=== PATIENT | female | born 1945 | race Caucasian/White ===

== ENCOUNTER 2016-10-04 02:24 | Observation (INO) | payer BC ==
[~2016-10-04] VITALS: Ht 162.6 cm; Wt 76.2 kg
[~2016-10-04 02:24] MED LIST: AMIT10TA6 PO; ASPI325T45 PO; ATEN-173 PO; CALC-354 PO; HYDR25TA4 PO
[2016-10-04] MEDS ORDERED: SODIUM CHLORIDE 0.9% 500ML 500 ML IV STA (02:52)
[2016-10-04] MEDS ORDERED: ACETAMINOPHEN 500 MG TAB PO STA (03:24)
[2016-10-04] MEDS ORDERED: MULT-506 PO (03:24)
[2016-10-04] MEDS ORDERED: KETOROLAC TROMETHAMINE 30 MG/ML VIAL IV STA (03:24)
[2016-10-04] MEDS ORDERED: SODIUM CHLORIDE 0.9% 1000ML 1,000 ML IV STA (03:44)
[2016-10-04] MEDS ORDERED: OSELTAMIVIR PHOSPHATE 75 MG CAP PO STA (03:49)
[2016-10-04 03:56] LABS: BASO % 0.3 %; BASO ABS # 0.02 K/uL (0-0.2); COMPLETE YES; EOS % 0.1 %; HEMATOCRIT 36.7 % (37-47); IG% 0.3 %; LYMPH % 8.2 %; MEAN CELL VOLUME 84.6 fL (80-100); MEAN CORPUSCULAR HEMOGLOBIN 29.7 pg (25-34); MEAN CORPUSCULAR HGB CONC 35.1 g/dl (32-36); MEAN PLATELET VOLUME 9.3 fL (7.4-10.4); MONO % 6.6 %; NEUT % 84.5 %; PLATELET COUNT 224 K/uL (130-400); RED BLOOD COUNT 4.34 M/uL (4.2-5.4); WHITE BLOOD COUNT 7.28 K/uL (4.8-10.8)
[2016-10-04 04:03] LABS: URINE APPEARANCE CLOUDY (CLEAR); URINE COLOR DK YELLOW; URINE EPITHELIAL CELL AUTO >30 /lpf (0-5); URINE NITRITE NEG (NEG); URINE SPECIFIC GRAVITY 1.037 (1.000-1.030); UROBILINOGEN NEG (NEG); ZZUR CULT IF INDIC CLEAN CATCH YES
[2016-10-04 04:14] LABS: ALT/SGPT 38 U/L (12-78); AST/SGOT 42 U/L (15-37); BLOOD UREA NITROGEN 11 mg/dl (7-18); BUN/CREATININE RATIO 11.1 (10-20); CALCIUM 8.5 mg/dl (8.5-10.1); CARBON DIOXIDE 29 mmol/L (21-32); CHLORIDE 99 mmol/L (98-107); GLUCOSE 120 mg/dl (70-99); POTASSIUM 2.8 mmol/L (3.5-5.1); SODIUM 138 mmol/L (136-145)
[2016-10-04 04:15] LABS: MANUAL MICROSCOPIC REQUIRED? NO; REVIEW REQ? YES
[2016-10-04 04:17] LABS: URINE BILIRUBIN NEG (NEG)
[2016-10-04 04:19] LABS: ALKALINE PHOSPHATASE 81 U/L (45-117)
[2016-10-04 04:30] LABS: URINE MUCUS PRESENT (NONE PRSENT)
[2016-10-04] MEDS ORDERED: ONDANSETRON INJ 2 MG/ML 2 ML VIAL IV STA (04:38)
[2016-10-04] MEDS ORDERED: ZOLPIDEM TARTRATE 5 MG TAB PO PRN (04:45)
[2016-10-04] MEDS ORDERED: MAGNESIUM HYDROXIDE SUSP 30 ML UDC PO PRN (04:45)
[2016-10-04] MEDS ORDERED: ACETAMINOPHEN 325 MG TAB PO PRN (04:45)
[2016-10-04] MEDS ORDERED: ALUMINUM/MAGNESIUM/SIMETH (MAALOX MAX) 30 ML UDC PO PRN (04:45)
[2016-10-04] MEDS ORDERED: CALCIUM CARBONATE CHOLECALCIFE PO SCH (04:45)
[2016-10-04] MEDS ORDERED: POLYETHYLENE (MIRALAX) 17 GM PACK PO PRN (04:45)
[2016-10-04] MEDS ORDERED: AMITRIPTYLINE HCL 10 MG TAB PO PRN (04:45)
[2016-10-04] MEDS ORDERED: ONDANSETRON INJ 2 MG/ML 2 ML VIAL IV PRN (04:45)
[2016-10-04] MEDS ORDERED: MAGNESIUM SULFATE 1GM / D5W 1 GM IV STA (04:48)
--- NOTE | 2016-10-04 04:57 | History and Physical ---
History & Physical Date & Time of Service: Oct 04, 2016 at 04:45 Chief Complaint: Flu,Headaches,Vomiting,Fell Out Of Bed Primary Care Physician: Wong Navarrete D.O. History of Present Illness Source: patient 71 y/o F w/Hx HTN, Diverticulitis presents following a syncopal episode. Pt has develped weakness and a fever. Rapid infulenza A is (+) and initial labs reveal mild lactic acid elevation and hypokalemia. The pt confirms that she did not have a flu shot this year. Past Medical/Surgical History Medical Problems: (1) Acute diverticulitis Status: Resolved (2) Hypertension Nos Status: Chronic (3) INTESTINAL OBSTRUCT NOS Status: Resolved (4) NONRUPT CEREBRAL ANEURYM Status: Chronic Surgical Problems: (1) Hx of appendectomy Status: Resolved (2) Hx of diagnostic laparoscopy, CHIKA Status: Resolved (3) Hx of hysterectomy Status: Resolved Family History Hypertension Social History Smoking Status: Never Smoker Drug Use: none Marital Status: Housing status: lives alone Occupational Status: employed Immunizations History of Influenza Vaccine: No Influenza Vaccine Date: Jul 11, 2008 History of Tetanus Vaccine?: Yes Tetanus Immunization Date: Jan 04, 2009 History of Pneumococcal: Yes Pneumococcal Date: Oct 10, 2010 History of Hepatitis B Vaccine: Yes Multi-Drug Resistant Organisms History of MDRO: No Allergies Coded Allergies: No Known Allergies (Verified , 05/20/16) Home Medications Scheduled Aspirin (Aspirin), 325 MG PO HS Atenolol (Tenormin), 12.5 MG PO QAM Calcium Carbonate-Cholecalcife (Caltrate 600+D), 3 TABS PO AMPM/3XW Hydrochlorothiazide (Hctz), 25 MG PO QAM Multivitamin (Multivitamin), 1 TAB PO 2XWK Scheduled PRN Amitriptyline Hcl (Elavil), 10 MG PO HS PRN for Sleep Review of Systems Constitutional: + chills, + fever, + sweats Eyes: No eye pain, No worsening of vision ENT: No hearing loss, No nasal symptoms, No unusual epistaxis Cardiovascular: No PND, No chest pain, No orthopnea Abdomen: No nausea, No pain, No vomiting Musculoskeletal: No joint pain, No muscle pain Genitourinary - Female: No dysuria, No urinary frequency, No urinary urgency Neurologic: + problem reported (Syncope ), + weakness Psychiatric: No depression symptoms Endocrine: + fatigue Hematologic / Lymphatic: No abnormal bleeding/bruising Integumentary: No rash Allergic / Immunologic: No environmental allergies Physical Exam Vital Signs Date Time Temp Pulse Resp B/P Pulse Ox O2 Delivery O2 Flow Rate FiO2 10/04/16 03:54 85 18 143/68 91 Room Air 10/04/16 02:30 37.7 89 18 114/63 91 Room Air General Appearance: WD/WN, no apparent distress Head: normocephalic, atraumatic Eyes: normal inspection, EOMI ENT: normal ENT inspection, pharynx normal Neck: supple, no JVD Respiratory/Chest: chest non-tender, lungs clear, normal breath sounds Cardiovascular: regular rate, rhythm, no edema, no gallop, no JVD, no murmur, normal peripheral pulses, + JVD Abdomen/GI: normal bowel sounds, non tender, soft Back: normal inspection, no CVA tenderness Extremities/Musculoskelatal: normal inspection, no calf tenderness, normal capillary refill, no pedal edema, normal range of motion 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, no motor/sensory deficits, alert, oriented x 3 Skin: normal color, warm/dry, no rash Diagnostics Laboratory Results Results Past 24 Hours Test 10/04/16 03:05 10/04/16 03:18 10/04/16 03:43 10/04/16 03:50 Range/Units Influenza Type A Antigen POS for Influ A NEG Influenza Type B Antigen Neg for Influ B NEG White Blood Count 7.28 4.8-10.8 K/uL Red Blood Count 4.34 4.2-5.4 M/uL Hemoglobin 12.9 12.0-16.0 g/dL Hematocrit 36.7 37-47 % Mean Corpuscular Volume 84.6 80-100 fL Mean Corpuscular Hemoglobin 29.7 25-34 pg Mean Corpuscular Hemoglobin Concent 35.1 32-36 g/dl Platelet Count 224 130-400 K/uL Mean Platelet Volume 9.3 7.4-10.4 fL Neutrophils (%) (Auto) 84.5 % Lymphocytes (%) (Auto) 8.2 % Monocytes (%) (Auto) 6.6 % Eosinophils (%) (Auto) 0.1 % Basophils (%) (Auto) 0.3 % Neutrophils # (Auto) 6.15 1.4-6.5 K/uL Lymphocytes # (Auto) 0.60 1.2-3.4 K/uL Monocytes # (Auto) 0.48 0.11-0.59 K/uL Eosinophils # (Auto) 0.01 0-0.5 K/uL Basophils # (Auto) 0.02 0-0.2 K/uL RDW Standard Deviation 39.7 36.4-46.3 fL RDW Coefficient of Variation 13.0 11.5-14.5 % Immature Granulocyte % (Auto) 0.3 % Immature Granulocyte # (Auto) 0.02 0.00-0.02 K/uL Sodium Level 138 136-145 mmol/L Potassium Level 2.8 3.5-5.1 mmol/L Chloride Level 99 98-107 mmol/L Carbon Dioxide Level 29 21-32 mmol/L Anion Gap 10.0 3-11 mmol/L Blood Urea Nitrogen 11 7-18 mg/dl Creatinine 1.00 0.60-1.20 mg/dl Est Creatinine Clear Calc Drug Dose 51.1 ml/min Estimated GFR () 65.6 Estimated GFR (Non- 56.6 BUN/Creatinine Ratio 11.1 10-20 Random Glucose 120 70-99 mg/dl Calcium Level 8.5 8.5-10.1 mg/dl Total Bilirubin 0.5 0.2-1 mg/dl Direct Bilirubin 0.1 0-0.2 mg/dl Aspartate Amino Transf (AST/SGOT) 42 15-37 U/L Alanine Aminotransferase (ALT/SGPT) 38 12-78 U/L Alkaline Phosphatase 81 45-117 U/L Troponin I < 0.015 0-0.045 ng/ml Total Protein 7.2 6.4-8.2 gm/dl Albumin 3.5 3.4-5.0 gm/dl Bedside Lactic Acid Venous 2.14 0.90-1.70 mmol/L Urine Color DK YELLOW Urine Appearance CLOUDY CLEAR Urine pH 6.0 4.5-7.5 Urine Specific [place] 1.037 1.000-1.030 Urine Protein 2+ NEG Urine Glucose (UA) NEG NEG Urine Ketones TRACE NEG Urine Occult Blood 2+ NEG Urine Nitrite NEG NEG Urine Bilirubin NEG NEG Urine Urobilinogen NEG NEG Urine Leukocyte Esterase TRACE NEG Urine WBC (Auto) 5-10 0-5 /hpf Urine RBC (Auto) >30 0-4 /hpf Urine Hyaline Casts (Auto) 10-30 0-5 /lpf Urine Epithelial Cells (Auto) >30 0-5 /lpf Urine Bacteria (Auto) 1+ NEG Urine Renal Epithelial Cells 0-5 /lpf Urine Pathogenic Casts 0 /lpf Urine Mucus PRESENT NONE PRSENT Microbiology Results 10/04/16 Blood Culture, Received Pending 10/04/16 Blood Culture, Received Pending 10/04/16 Urine Culture, Received Pending CXR normal Normal EKG Impression Assessment and Plan 1) Syncope - likely due to orthostasis resulting from volume depletion due to Influenza. The pt will be monitored on telemetry and aggressively hydrated overnight. We would hold off on a syncopal workup at present as she does not have considerable cardiovascular risk factors or a history of recurrent episodes. 2) Influenza A - Tamiflu provided - mild lactic elevation noted - will repeat following hydration. 3) Hypokalemia - repleted and mag provided - repeat BMP with next labs 4) HTN - Meds held pending AM reevaluation SCDs only due to Hx of Aneurysm - full code Total time for this admit including review of labs, meds, EKG, CXR, CT - previous records - discussion with ER attending and pt - 30 min Level of Care Telemetry Resuscitation Status FULL RESUSCITATION VTE Prophylaxis VTE Risk Assessment Done? Y/N: Yes Risk Level: Moderate Given or contraindicated: SCD's
--- NOTE | 2016-10-04 05:25 | EMERGENCY ROOM VISIT NOTE ---
History Report prepared by Alanis: Stella Dow Under the Supervision of: Dr. Adebayo Camarillo M.D. First contact with patient: 02:32 Chief Complaint: FLU LIKE SX Stated Complaint: FLU,HEADACHES,VOMITING,FELL OUT OF BED History of Present Illness The patient is a 71 year old female who presents to the Emergency Room with complaints of worsening flu like symptoms with onset two days ago. For two days , the patient has had nausea, vomiting, and a fever. She has also had a headache. The headache was located in the back of her head. This evening, she vomited twice in the past 6 hours. The patient lives with her son, who states he heard the patient say that she needed to go to the bathroom this early this morning, around 2.5 hours ago. The patient then fell out of her bed on her way to the bathroom. She fell on her right flank and passed out. The patient denies hitting her head. She was short of breath after the fall but she no longer has shortness of breath. Additionally, the patient did not get a flu vaccine this year. Source of History: patient Onset: 2 days ago Position: other (global ) Quality: other (flu like symptoms) Timing: worsening Associated Symptoms: + LOC, + fevers, + nausea, + vomiting Note: She fell on her right flank, denies hitting her head. She was then short of breath but she no longer has shortness of breath. Review of Systems See HPI for pertinent positives & negatives. A total of 10 systems reviewed and were otherwise negative. Past Medical & Surgical Medical Problems: (1) Acute diverticulitis (2) Hypertension Nos (3) Influenza A (4) INTESTINAL OBSTRUCT NOS (5) NONRUPT CEREBRAL ANEURYM (6) Syncope and collapse Surgical Problems: (1) Hx of appendectomy (2) Hx of diagnostic laparoscopy, CHIKA (3) Hx of hysterectomy Family History Hypertension Social History Smoking Status: Never Smoker Drug Use: none Marital Status: Housing Status: lives alone Occupation Status: employed Current/Historical Medications Scheduled Aspirin (Aspirin), 325 MG PO HS Atenolol (Tenormin), 12.5 MG PO QAM Calcium Carbonate-Cholecalcife (Caltrate 600+D), 3 TABS PO AMPM/3XW Hydrochlorothiazide (Hctz), 25 MG PO QAM Multivitamin (Multivitamin), 1 TAB PO 2XWK Scheduled PRN Amitriptyline Hcl (Elavil), 10 MG PO HS PRN for Sleep Allergies Coded Allergies: No Known Allergies (Verified , 05/20/16) Physical Exam Vital Signs Date Time Temp Pulse Resp B/P Pulse Ox O2 Delivery O2 Flow Rate FiO2 10/04/16 05:05 86 20 118/59 98 Room Air 10/04/16 03:54 85 18 143/68 91 Room Air 10/04/16 02:30 37.7 89 18 114/63 91 Room Air Physical Exam GENERAL: Patient is uncomfortable appearing and in mild distress. HEENT: No acute trauma, normocephalic atraumatic, mucous membranes moist, no nasal congestion, no scleral icterus. NECK: No stridor, no adenopathy, no meningismus, trachea is midline. LUNGS: No dyspnea. Clear to auscultation and equal bilaterally. No wheeze, no rhonchi. HEART: Regular rate and rhythm. No murmurs, rubs, gallops appreciated. ABDOMEN: Soft, bowel sounds positive, no masses appreciated, no peritonitis. She is tender to palpation over the right lateral middle ribs and has vague tenderness over the suprapubic region. BACK: No midline tenderness, no CVA tenderness EXTREMITIES: Normal motion all extremities, no cyanosis, no edema. NEUROLOGIC: Alert and oriented, no acute motor or sensory deficits, no focal weakness, cranial nerves grossly intact. SKIN: No rash, no jaundice, no diaphoresis. Medical Decision & Procedures ER Provider Diagnostic Interpretation: X ray results and stated below per my interpretation. Other radiology results and stated below per my review and radiologist interpretation: CT Head: CT head without contrast material 10/11/2010. No ICH, mass effect or edema. No skull fracture. Coil pack in the region of the right carotid terminus likely relates to interval aneurysm coiling. Radiologist: Bryant Hope MD. Chest: 1 view: No infiltrate, no effusion, normal cardiac border. There is evidence of right lateral 5th or 6th rib fracture. Laboratory Results 10/04/16 03:18 Red Blood Count 4.34, Mean Corpuscular Volume 84.6, Mean Corpuscular Hemoglobin 29.7, Mean Corpuscular Hemoglobin Concent 35.1, Mean Platelet Volume 9.3, Neutrophils (%) (Auto) 84.5, Lymphocytes (%) (Auto) 8.2, Monocytes (%) (Auto) 6.6, Eosinophils (%) (Auto) 0.1, Basophils (%) (Auto) 0.3, Neutrophils # (Auto) 6.15, Lymphocytes # (Auto) 0.60, Monocytes # (Auto) 0.48, Eosinophils # (Auto) 0.01, Basophils # (Auto) 0.02 10/04/16 03:18 Test 10/04/16 03:05 10/04/16 03:18 10/04/16 03:43 10/04/16 03:50 Influenza Type A Antigen POS for Influ A (NEG) Influenza Type B Antigen Neg for Influ B (NEG) White Blood Count 7.28 K/uL (4.8-10.8) Red Blood Count 4.34 M/uL (4.2-5.4) Hemoglobin 12.9 g/dL (12.0-16.0) Hematocrit 36.7 % (37-47) Mean Corpuscular Volume 84.6 fL (80-100) Mean Corpuscular Hemoglobin 29.7 pg (25-34) Mean Corpuscular Hemoglobin Concent 35.1 g/dl (32-36) Platelet Count 224 K/uL (130-400) Mean Platelet Volume 9.3 fL (7.4-10.4) Neutrophils (%) (Auto) 84.5 % Lymphocytes (%) (Auto) 8.2 % Monocytes (%) (Auto) 6.6 % Eosinophils (%) (Auto) 0.1 % Basophils (%) (Auto) 0.3 % Neutrophils # (Auto) 6.15 K/uL (1.4-6.5) Lymphocytes # (Auto) 0.60 K/uL (1.2-3.4) Monocytes # (Auto) 0.48 K/uL (0.11-0.59) Eosinophils # (Auto) 0.01 K/uL (0-0.5) Basophils # (Auto) 0.02 K/uL (0-0.2) RDW Standard Deviation 39.7 fL (36.4-46.3) RDW Coefficient of Variation 13.0 % (11.5-14.5) Immature Granulocyte % (Auto) 0.3 % Immature Granulocyte # (Auto) 0.02 K/uL (0.00-0.02) Anion Gap 10.0 mmol/L (3-11) Est Creatinine Clear Calc Drug Dose 51.1 ml/min Estimated GFR () 65.6 Estimated GFR (Non- 56.6 BUN/Creatinine Ratio 11.1 (10-20) Calcium Level 8.5 mg/dl (8.5-10.1) Total Bilirubin 0.5 mg/dl (0.2-1) Direct Bilirubin 0.1 mg/dl (0-0.2) Aspartate Amino Transf (AST/SGOT) 42 U/L (15-37) Alanine Aminotransferase (ALT/SGPT) 38 U/L (12-78) Alkaline Phosphatase 81 U/L (45-117) Troponin I < 0.015 ng/ml (0-0.045) Total Protein 7.2 gm/dl (6.4-8.2) Albumin 3.5 gm/dl (3.4-5.0) Bedside Lactic Acid Venous 2.14 mmol/L (0.90-1.70) Urine Color DK YELLOW Urine Appearance CLOUDY (CLEAR) Urine pH 6.0 (4.5-7.5) Urine Specific [place] 1.037 (1.000-1.030) Urine Protein 2+ (NEG) Urine Glucose (UA) NEG (NEG) Urine Ketones TRACE (NEG) Urine Occult Blood 2+ (NEG) Urine Nitrite NEG (NEG) Urine Bilirubin NEG (NEG) Urine Urobilinogen NEG (NEG) Urine Leukocyte Esterase TRACE (NEG) Urine WBC (Auto) 5-10 /hpf (0-5) Urine RBC (Auto) >30 /hpf (0-4) Urine Hyaline Casts (Auto) 10-30 /lpf (0-5) Urine Epithelial Cells (Auto) >30 /lpf (0-5) Urine Bacteria (Auto) 1+ (NEG) Urine Renal Epithelial Cells /lpf (0-5) Urine Pathogenic Casts /lpf (0) Urine Mucus PRESENT (NONE PRSENT) Laboratory results as reviewed by me. Medications Administered Medications (Trade) Dose Ordered Sig/Rishabh Route Start Time Stop Time Status Last Admin Dose Admin Sodium Chloride (Nss 500ml) 500 ml @ 999 mls/hr Q31M STAT IV 10/04/16 02:52 10/04/16 03:22 DC 10/04/16 02:52 999 MLS/HR Acetaminophen (Tylenol Tab) 1,000 mg NOW STAT PO 10/04/16 03:24 10/04/16 03:25 DC 10/04/16 03:47 1,000 MG Ketorolac Tromethamine 15 mg 15 mg NOW STAT IV 10/04/16 03:24 10/04/16 03:25 DC 10/04/16 03:24 15 MG Sodium Chloride (Nss 1000ml) 1,000 ml @ 999 mls/hr Q1H1M STAT IV 10/04/16 03:44 10/04/16 04:44 DC 10/04/16 03:44 999 MLS/HR Oseltamivir Phosphate (Tamiflu Cap) 75 mg NOW STAT PO 10/04/16 03:49 10/04/16 03:50 DC 10/04/16 03:58 75 MG Ondansetron HCl 4 mg 4 mg NOW STAT IV 10/04/16 04:38 10/04/16 04:39 DC 10/04/16 04:44 4 MG Magnesium Sulfate (Magnesium Sulfate) 100 ml @ 100 mls/hr NOW STAT IV 10/04/16 04:48 10/04/16 05:47 10/04/16 04:57 100 MLS/HR ECG Indication: vomiting Rate (beats per minute): 84 Rhythm: normal sinus Findings: no ectopy, other (nonspecific ST depression, no STEMI ) ED Course 0233: The patient was evaluated in room A3. The patient was first evaluated by the medical student. A complete history and physical exam was performed. 0252: Sodium Chloride 500 ml @ 999 mls/hr IV 0324: Toradol 15 mg IV, Tylenol Tab 1000 mg PO 0344: Sodium Chloride 1000 ml @ 999 mls/hr IV 0349: Tamiflu Cap 75 mg PO 0432: I discussed the case with Dr. Ovalles ([facility]); he will further evaluate the patient. 0438: Zofran 4 mg IV Medical Decision Differential: Vaso-vagal, Intracerebral Event, Neurologic, Infectious, Volume Deficiency, Hypoglycemia, Electrolyte Abnormality, Cardiac Source, Toxicologic, amongst other pathologies entertained. Very pleasant 71 yr old female arrives following syncopal event getting out of bed. She has had flu-like illness last 48 hours with vomiting and is clearly dehydrated. Right sided headache without neuro deficits and she has no evidence of meningitis by examinations. I mildly hypotensive as well as having mild lactic acidosis. I suspect this was hypovolemic syncope with getting out of bed, but regardless will need to come in. She does have what appears to be right rib fracture from fall as well though is tolerating this well. No evidence of ACS, stroke. With flu positive and blood pressure responding so quickly, I do not feel that she requires IV abx at this time, especially given no current fever nor wbc elevation. Consults Time Called: [phone] Consulting Physician: Dr. Ovalles ([facility]) Returned Call: [phone] I discussed the case with Dr. Ovalles ([facility]); he will further evaluate the patient. Impression Primary Impression: Syncope Additional Impressions: Influenza Dehydration Lactic acidosis Right rib fracture Scribe Attestation The scribe's documentation has been prepared under my direction and personally reviewed by me in its entirety. I confirm that the note above accurately reflects all work, treatment, procedures, and medical decision making performed by me. Departure Information Dispostion Being Evaluated By Hospitalist Referrals Wong Navarrete D.O. (PCP) Patient Instructions My [facility] Problem Qualifiers Primary Impression: Syncope Syncope type: unspecified Qualified Codes: R55 - Syncope and collapse Additional Impressions: Right rib fracture Encounter type: initial encounter Rib fracture type: single rib Fracture type: closed Qualified Codes: S22.31XA - Fracture of one rib, right side, initial encounter for closed fracture
[2016-10-04] MEDS ORDERED: IV FLUIDS COMPLETED PRN (05:30)
[2016-10-04 05:52] VITALS: BP 118/63; PULSE 83; TEMP 36.9; O2SAT 93; Ht 162.6 cm; Wt 76.2 kg
[2016-10-04] MEDS ORDERED: HEPARIN SOD 5000 UNIT/0.5 ML CARP SQ SCH (06:00)
--- NOTE | 2016-10-04 06:18 | DIAGNOSTIC IMAGING REPORT ---
CHEST ONE VIEW PORTABLE CLINICAL HISTORY: fall right chest pain, fever COMPARISON STUDY: 03/22/2015 FINDINGS: The bones soft tissues and hemidiaphragms are normal. The cardiomediastinal silhouette is normal. The lungs are clear. The pulmonary vasculature is normal. Old fracture right sixth rib IMPRESSION: Negative chest. Electronically signed by: Will Balbuena M.D. 10/04/2016 6:17 AM Dictated Date/Time: 10/04/2016 6:16 AM
[2016-10-04] MEDS: NSS + 20MEQ KCL 1000ML 1,000 ML IV SCH ×2 (06:22→13:56)
[2016-10-04] MEDS: POTASSIUM CHLR 10 MEQ / WTR 10 MEQ in PREMIXED WATER 100 ML IV SCH ×4 (06:22→08:53)
--- NOTE | 2016-10-04 06:30 | DIAGNOSTIC IMAGING REPORT ---
HEAD CT NONCONTRAST CT DOSE: 614.27 mGy.cm HISTORY: Headache headache, fall TECHNIQUE: Multiaxial CT images of the head were performed without the use of intravenous contrast. Comparison: 10/11/2010 Findings: The paranasal sinuses and mastoid air cells are clear. Interval postprocedure vascular coil right suprasellar cistern. Density characteristics otherwise are unremarkable. There is no evidence for acute intracranial hemorrhage. Impression: No acute intracranial abnormality. Electronically signed by: Will Balbuena M.D. 10/04/2016 6:28 AM Dictated Date/Time: 10/04/2016 6:27 AM
[2016-10-04] MEDS: OSELTAMIVIR PHOSPHATE 75 MG CAP PO SCH ×2 (07:37→19:48)
[2016-10-04 07:48] VITALS: BP 102/59; PULSE 71; TEMP 36.7; O2SAT 95
[2016-10-04] MEDS: CEPHALEXIN MONOHYDRATE 500 MG CAP PO SCH ×2 (08:54→19:48)
[2016-10-04] MEDS ORDERED: NURSING VERBAL MED ORDER ONE (10:15)
[2016-10-04] MEDS ORDERED: KETOROLAC TROMETHAMINE 15 MG/ML VIAL IV. STA (10:16)
[2016-10-04] MEDS: LIDODERM (LIDOCAINE) PATCH 5% TD SCH (11:35)
[2016-10-04 11:51] VITALS: BP 123/71; PULSE 66; TEMP 36.5; O2SAT 94
[2016-10-04] MEDS: CALCIUM 600MG + VIT D 400 IU TAB PO SCH ×2 (12:26→19:47)
[2016-10-04 12:50] VITALS: BP_SYST 115; BP_SYST 117; BP_SYST 119; BP_DIAS 70; PULSE 68; PULSE 69; PULSE 72; TEMP 36.4; O2SAT 94
[2016-10-04 14:38] LABS: BUN/CREATININE RATIO 12.9 (10-20); CALCIUM 7.5 mg/dl (8.5-10.1); CREATININE 1.1 mg/dl (0.60-1.20); MAGNESIUM 2.4 mg/dl (1.8-2.4); POTASSIUM 3.4 mmol/L (3.5-5.1)
[2016-10-04] MEDS ORDERED: POTASSIUM CHLORIDE 10 MEQ TABCR PO STA (14:52)
[2016-10-04 15:11] VITALS: BP 122/68; PULSE 68; TEMP 36.4; O2SAT 96
[2016-10-04] MEDS ORDERED: BUTALBITAL/ACETAMIN/CAFFEINE TAB PO ONE (16:15)
--- NOTE | 2016-10-04 17:03 | Progress Note ---
Progress Note Date of Service Oct 04, 2016. Progress Note time: 1700 S: feels much better - more energy, not as dizzy, no further nausea/emesis. still with right-sided headache. had chills at home - now resolved. telemetry normal since admission. no chest pain. no shortness of breath. O: VSS now afebrile gen - nad, nontoxic mouth - MMM neck - no JVD heart - RRR, s1, s2 lungs - CTA b/l abd - soft, NT, ND, BS+ ext - no edema chest wall - mildly tender lower right ribs labs - K 2.8 trop neg EKG - NSR, NS ST changes anteroseptal leads A/P: 1. flu A - tamiflu x 5 days. 2. headache - neg head CT; likely 2nd to #1. Toradol x 1 IV now. 3. syncope - likely 2nd to hypokalemia and dehydration - no recurrent events. 4. modestly abnormal EKG - repeat EKG this afternoon; repeat troponin this afternoon. no ischemic symptoms at this time. 5. hypokalemia - replacing, repeat K and mag later today to ensure normalization. 6. rib pain - likely contusion on right - cxr neg for acute fractures - lidoderm patches; toradol will help as well. 7. ?UTI - start keflex 500 BID while awaiting cx; patient denies symptoms, however. will re-eval later today Juaquin GUNTER MD
[2016-10-04 20:01] VITALS: BP 136/78; PULSE 65; TEMP 36.5; O2SAT 95
[2016-10-04] MEDS ORDERED: ASPIRIN 325 MG ECTAB PO SCH (21:00)
[2016-10-05 00:06] VITALS: BP 132/82; PULSE 63; TEMP 36.7; O2SAT 96
[2016-10-05] MEDS: NSS + 20MEQ KCL 1000ML 1,000 ML IV SCH (00:08)
[2016-10-05 03:38] VITALS: BP 132/76; PULSE 67; TEMP 36.6; O2SAT 95
[2016-10-05 07:18] VITALS: BP 160/82; PULSE 77; TEMP 36.2; O2SAT 98
[2016-10-05] MEDS: OSELTAMIVIR PHOSPHATE 75 MG CAP PO SCH (07:45)
[2016-10-05] MEDS: CALCIUM 600MG + VIT D 400 IU TAB PO SCH (07:45)
[2016-10-05] MEDS: LIDODERM (LIDOCAINE) PATCH 5% TD SCH (07:45)
[2016-10-05] MEDS: CEPHALEXIN MONOHYDRATE 500 MG CAP PO SCH (07:45)
[2016-10-05 09:23] LABS: BUN/CREATININE RATIO 14.5 (10-20); CALCIUM 8.2 mg/dl (8.5-10.1); CREATININE 0.73 mg/dl (0.60-1.20)
[2016-10-05 09:52] VITALS: BP 145/85
--- NOTE | 2016-10-05 10:02 | Hospitalist Progress Note ---
Hospitalist Progress Note Date of Service Oct 05, 2016. Subjective Pt evaluation today including: conversation w/ patient, physical exam, chart review, lab review, review of studies, review of inpatient medication list PO Intake: Good Voiding: no voiding problems The patient was seen and examined this morning. Pt reports her right ribs are sore where the bruising is s/p fall. Her headache from yesterday is resolved. She reports minor sore throat, some congestion, + productive cough but does not know the color of sputum. Denies chest tightness, sob, dyspnea, chest pain. Her last BM was yesterday. Denies dysuria, pressure, or hematuria. Pt plans to ambulate more today and then is agreeable to discharge home. All Other Systems: Reviewed and Negative (other than listed above) Objective Vital Signs Date Time Temp Pulse Resp B/P Pulse Ox O2 Delivery O2 Flow Rate FiO2 10/05/16 08:00 Room Air 10/05/16 07:18 36.2 77 16 160/82 98 Room Air 10/05/16 04:00 Room Air 10/05/16 03:38 36.6 67 17 132/76 95 Room Air 10/05/16 00:06 36.7 63 18 132/82 96 Room Air 10/04/16 23:59 Room Air 10/04/16 20:01 36.5 65 18 136/78 95 Room Air 10/04/16 20:00 Room Air 10/04/16 16:00 Room Air 10/04/16 15:11 36.4 68 20 122/68 96 Room Air 10/04/16 12:50 36.4 69 18 119/70 94 Room Air 72 117/70 68 115/70 10/04/16 12:00 Room Air 10/04/16 11:51 36.5 66 18 123/71 94 Room Air Physical Exam General Appearance: WD/WN, no apparent distress Eyes: PERRL, EOMI ENT: hearing grossly normal, pharynx normal Neck: supple, no JVD Respiratory/Chest: lungs clear, normal breath sounds, no respiratory distress, no accessory muscle use, + pertinent finding (+ ecchymosis under right axillary region, ecchymosis on RUQ.) Cardiovascular: regular rate, rhythm, no murmur Abdomen: normal bowel sounds, non tender, soft, no organomegaly Extremities: non-tender, no pedal edema, no calf tenderness Neurologic/Psychiatric: alert, normal mood/affect, oriented x 3 Skin: normal color, warm/dry Laboratory Results Last 24 Hours Test 10/04/16 13:50 10/05/16 08:14 Sodium Level 142 mmol/L 144 mmol/L Potassium Level 3.4 mmol/L 4.0 mmol/L Chloride Level 107 mmol/L 110 mmol/L Carbon Dioxide Level 25 mmol/L 21 mmol/L Anion Gap 10.0 mmol/L 13.0 mmol/L Blood Urea Nitrogen 14 mg/dl 11 mg/dl Creatinine 1.10 mg/dl 0.73 mg/dl Est Creatinine Clear Calc Drug Dose 46.4 ml/min 70.7 ml/min Estimated GFR () 58.5 96.0 Estimated GFR (Non- 50.5 82.9 BUN/Creatinine Ratio 12.9 14.5 Random Glucose 93 mg/dl 114 mg/dl Calcium Level 7.5 mg/dl 8.2 mg/dl Magnesium Level 2.4 mg/dl Troponin I < 0.015 ng/ml Assessment and Plan 71 yo F admitted for weakness and lethargy with syncopal episode. Influenza A - Started on tamiflu x 5 days (day#2) Hypokalemia Dehydration Syncope - Likely all related to each other- - hypokalemia resolved. - Pt tolerating oral liquids without difficulty, will dc IVFs Elevated troponin - Troponin negative x 2, initial was likely elevated due to dehydration Rib pain - likely contusion on right - cxr neg for acute fractures - lidoderm patches; toradol will help as well - Pt reports pain is improved. - + ecchymosis evolving, continue use of ice and heat for pain. ?UTI - start keflex 500 BID - cx has moderate skin stoney, but no other sensitivities to follow. - pt reports hx of UTI, will continue keflex x 5 day course (day 2) - patient denies symptoms - See's urology as outpatient where she is prescribed estrase cream to help with urethral constriction, aid is ability to empty bladder and avoid UTI. DVT ppx: Teds, OOb Disposition: From home, likely discharge home today. Discharge planning: home
[2016-10-05] MEDS ORDERED: TMF75 PO (10:40)
[2016-10-05] MEDS ORDERED: KFL500 PO (10:40)
--- NOTE | 2016-10-05 10:45 | Discharge Instructions ---
Discharge Instructions Date of Service Oct 05, 2016. (Brittney Hernandez PA-C) Admission Reason for Admission: Influenza A, Syncope And Collapse (Brittney Hernandez PA-C) Discharge Discharge Diagnosis / Problem: Influenza A, syncope and collapse due to dehydration, low potassium (Brittney Hernandez PA-C) Discharge Goals Goal(s): Decrease discomfort, Improve function, Increase independence (Brittney Hernandez PA-C) Activity Recommendations Activity Limitations: resume your previous activity Lifting Limitations: gradually increase as tolerated Exercise/Sports Limitations: gradually increase as tolerated May Resume Sexual Activity: when tolerated Shower/Bathe: no limitations Driving or Machine Use: no limitations . (Brittney Hernandez PA-C) Instructions / Follow-Up Instructions / Follow-Up You were admitted to [facility] with weakness and confusion after syncope (passing out ) and diagnosed with influenza A, dehydration causing low blood pressure making you pass out, and low potassium.. During your stay here you were treated with intravenous fluids, tamiflu, and antibiotics for a possible urinary tract infection. Imaging studies which were completed include X ray of the chest which was normal , there were no fractures. Continue taking all medications as prescribed. Continue taking keflex (antibiotic) for possible urinary tract infection Continue taking tamiflu (antiviral) for the flu, for the next 3 days to complete a 5 day course Drink plenty of fluids to stay hydrated. Eat bland foods like toast, crackers, scrambled egg, until you feel you can tolerate a regular diet. Follow up with your PCP within 2-4 weeks. (Brittney Hernandez PA-C) Current Hospital Diet Patient's current hospital diet: AHA Diet (Heart Healthy) (Brittney Hernandez PA-C) Discharge Diet Recommended Diet: AHA Diet (Heart Healthy) (Brittney Hernandez PA-C) Pending Studies Studies pending at discharge: no (Brittney Hernandez PA-C) Medical Emergencies . Who to Call and When: Medical Emergencies: If at any time you feel your situation is an emergency, please call 911 immediately. . (Brittney Hernandez PA-C) Non-Emergent Contact Non-Emergency issues call your: Primary Care Provider Call Non-Emergent contact if: temperature is above 100.5, your pain is not controlled, your pain is worsening, your pain is concerning you, you have any medication questions . (Brittney Hernandez PA-C) Past History Medical & Surgical History: (1) Influenza A (2) Syncope and collapse (Brittney Hernandez PA-C) . "Provider Documentation" section prepared by Valentine Hernandez. (Brittney Hernandez PA-C) VTE Core Measure Inpt VTE Proph given/why not?: SCD's (Brittney Hernandez PA-C)
[2016-10-05 10:51] VITALS: BP 145/85; PULSE 77; TEMP 36.2; O2SAT 98
--- NOTE | 2016-10-05 11:52 | Discharge Summary ---
Discharge Summary Date of Service Oct 05, 2016. (Brittney Hernandez PA-C) Discharge Summary Admission Date: Oct 04, 2016 at 04:44 Discharge Date: Oct 05, 2016 Discharge Disposition: Home Principal Diagnosis: Influenza A, hypokalemia, syncope due to dehydration Problems/Secondary Diagnoses: (1) Hypertension Nos Status: Chronic Immunizations: Have You Had Influenza Vaccine: No Influenza Vaccine Date: Jul 11, 2008 History of Tetanus Vaccine?: Yes Tetanus Immunization Date: Jan 04, 2009 History of Pneumococcal: Yes Pneumococcal Date: Oct 10, 2010 History of Hepatitis B Vaccine: Yes Procedures: HEAD CT NONCONTRAST CT DOSE: 614.27 mGy.cm HISTORY: Headache headache, fall TECHNIQUE: Multiaxial CT images of the head were performed without the use of intravenous contrast. Comparison: 10/11/2010 Findings: The paranasal sinuses and mastoid air cells are clear. Interval postprocedure vascular coil right suprasellar cistern. Density characteristics otherwise are unremarkable. There is no evidence for acute intracranial hemorrhage. Impression: No acute intracranial abnormality. Electronically signed by: Will Balbuena M.D. 10/04/2016 6:28 AM Dictated Date/Time: 10/04/2016 6:27 AM The status of this report is Signed. CHEST ONE VIEW PORTABLE CLINICAL HISTORY: fall right chest pain, fever COMPARISON STUDY: 03/22/2015 FINDINGS: The bones soft tissues and hemidiaphragms are normal. The cardiomediastinal silhouette is normal. The lungs are clear. The pulmonary vasculature is normal. Old fracture right sixth rib IMPRESSION: Negative chest. Electronically signed by: Will Balbuena M.D. 10/04/2016 6:17 AM Dictated Date/Time: 10/04/2016 6:16 AM The status of this report is Signed. Consultations: None (Brittney Hernandez PA-C) Medication Reconciliation New Medications: Cephalexin Monohydrate (Cephalexin) 500 Mg Cap 500 MG PO BID for 4 Days, #8 CAP Oseltamivir Phosphate (Tamiflu) 75 Mg Cap 75 MG PO BID for 3 Days, #6 CAP Continued Medications: Amitriptyline Hcl (Elavil) 10 Mg Tab 10 MG PO HS PRN for Sleep, TAB Aspirin (Aspirin) 325 Mg Tab 325 MG PO HS Atenolol (Tenormin) 25 Mg Tab 12.5 MG PO QAM, TAB Calcium Carbonate-Cholecalcife (Caltrate 600+D) 1 Tab Tab 3 TABS PO AMPM/3XW Hydrochlorothiazide (Hctz) 25 Mg Tab 25 MG PO QAM, TAB Multivitamin (Multivitamin) Tab 1 TAB PO 2XWK, TAB Discharge Exam Pt evaluation today including: conversation w/ patient, physical exam, chart review, lab review, review of studies, review of inpatient medication list PO Intake: Good Voiding: no voiding problems The patient was seen and examined this morning. Pt reports her right ribs are sore where the bruising is s/p fall. Her headache from yesterday is resolved. She reports minor sore throat, some congestion, + productive cough but does not know the color of sputum. Denies chest tightness, sob, dyspnea, chest pain. Her last BM was yesterday. Denies dysuria, pressure, or hematuria. Pt plans to ambulate more today and then is agreeable to discharge home. All Other Systems: Reviewed and Negative (other than listed above) Review of Systems: Constitutional: No chills, No fever, No sweats Eyes: No diplopia ENT: + sore throat Respiratory: + cough, + sputum, No dyspnea on exertion, No shortness of breath Cardiovascular: No chest pain, No palpitations Abdomen: No constipation, No diarrhea, No nausea, No pain, No vomiting Musculoskeletal: No calf pain, No muscle pain, No swelling Genitourinary - Female: No dysuria, No hematuria, No urinary frequency, No urinary incontinence Neurologic: No memory loss, No numbness/tingling Endocrine: No fatigue Integumentary: No itch, No rash Physical Exam: General Appearance: WD/WN, no apparent distress Eyes: PERRL, EOMI ENT: hearing grossly normal, pharynx normal Neck: supple, no JVD Respiratory/Chest: lungs clear, no respiratory distress, no accessory muscle use Cardiovascular: regular rate, rhythm, no murmur, normal peripheral pulses Abdomen / GI: normal bowel sounds, non tender, soft, no organomegaly Extremities: normal inspection, no calf tenderness Neurologic/Psychiatric: alert, normal reflexes, oriented x 3 Skin: normal color, warm/dry, no rash (Brittney Hernandez, HARSHA) Hospital Course H&P per Dr. Ovalles Source: patient 71 y/o F w/Hx HTN, Diverticulitis presents following a syncopal episode. Pt has develped weakness and a fever. Rapid infulenza A is (+) and initial labs reveal mild lactic acid elevation and hypokalemia. The pt confirms that she did not have a flu shot this year. Physical Exam Vital Signs Date Time Temp Pulse Resp B/P Pulse Ox O2 Delivery O2 Flow Rate FiO2 10/04/16 03:54 85 18 143/68 91 Room Air 10/04/16 02:30 37.7 89 18 114/63 91 Room Air General Appearance: WD/WN, no apparent distress Head: normocephalic, atraumatic Eyes: normal inspection, EOMI ENT: normal ENT inspection, pharynx normal Neck: supple, no JVD Respiratory/Chest: chest non-tender, lungs clear, normal breath sounds Cardiovascular: regular rate, rhythm, no edema, no gallop, no JVD, no murmur, normal peripheral pulses, + JVD Abdomen/GI: normal bowel sounds, non tender, soft Back: normal inspection, no CVA tenderness Extremities/Musculoskelatal: normal inspection, no calf tenderness, normal capillary refill, no pedal edema, normal range of motion Neurologic/Psych: manager endoscopy II-XII nml as tested, no motor/sensory deficits, alert, oriented x 3 Skin: normal color, warm/dry, no rash Hospital Course: 71 yo F admitted for weakness and lethargy with syncopal episode secondary to dehydration. Influenza A - Started on tamiflu x 5 days (day#2)- Hypokalemia Dehydration Syncope - Likely all related to each other- - hypokalemia resolved. - Pt tolerating oral liquids without difficulty, will dc IVFs Elevated troponin - Troponin negative x 2, initial was likely elevated due to dehydration - EKG normal - No cardiac symptoms Rib pain - likely contusion on right - cxr neg for acute fractures - lidoderm patches; toradol will help as well - Pt reports pain is improved. - + ecchymosis evolving, continue use of ice and heat for pain. ? UTI - start keflex 500 BID - UA dirty, cx has moderate skin stoney, but no other sensitivities to follow. - pt reports hx of UTI, will continue keflex x 5 day course (day 2) - patient denies symptoms - See's urology as outpatient where she is prescribed estrase cream to help with urethral constriction, aid is ability to empty bladder and avoid UTI. DVT ppx: Teds, OOb Disposition: From home, discharge home today. Total Time Spent: Greater than 30 minutes This includes examination of the patient, discharge planning, medication reconciliation, and communication with other providers. (Brittney Hernandez PA-C) ALEXANDRO Physician Supervision Note: I interviewed and examined the patient. Discussed with Brittney Hernandez PAC and agree with findings and plan as documented in the note. Any exceptions or clarifications are listed here: None Pt is stable for discharge labs and chart reviewed Pt is awake, alert oriented and ambulated in room consider metabolic encephalopathy from uti poa, and toxic encephalopathy from medications taken at home Documented By: Howie Perez (Howie Perez M.D.) Discharge Instructions Please refer to the electronic Patient Visit Report (Discharge Instructions) for additional information. (Brittney Hernandez PA-C) Follow-Up Follow up with your Primary Care Provider within 2-4 weeks. (Brittney Hernandez PA-C) Additional Copies To Wong Navarrete D.O.
== END 2016-10-05 12:10 | disposition home or self-care (01) ==
LOC: ENRESERVDT → ENRESERVTM → C.EDB 02:26 → C.2T 04:44
PROVIDERS: ADMIT Internal Medicine; ATTEND Internal Medicine
DX: J09.X2 Influenza due to identified novel influenza A virus with other respiratory manifestations (principal); E87.6 Hypokalemia; E86.0 Dehydration; R55 Syncope and collapse; R79.89 Other specified abnormal findings of blood chemistry; R07.81 Pleurodynia; I10 Essential (primary) hypertension; Z79.82 Long term (current) use of aspirin; R82.99 Other abnormal findings in urine

== ENCOUNTER 2017-01-20 12:37 | Emergency (ER) | payer BC ==
[~2017-01-20] VITALS: Ht 162.6 cm; Wt 73.0 kg
[~2017-01-20 12:37] MED LIST changes: +KFL500 PO; +MULT-506 PO; +TMF75 PO
[2017-01-20 12:46] VITALS: TEMP 36.8; Ht 162.6 cm; Wt 73.0 kg
[2017-01-20] MEDS ORDERED: SODIUM CHLORIDE 0.9% 1000ML 1,000 ML IV STA (12:58)
--- NOTE | 2017-01-20 13:49 | DIAGNOSTIC IMAGING REPORT ---
CHEST ONE VIEW PORTABLE CLINICAL HISTORY: Pt c/o syncope dyspnea COMPARISON STUDY: 10/04/2016 FINDINGS: The bones soft tissues and hemidiaphragms are normal. The cardiomediastinal silhouette is normal. The lungs are clear. The pulmonary vasculature is normal. IMPRESSION: Negative chest. Electronically signed by: Will Balbuena M.D. 01/20/2017 1:48 PM Dictated Date/Time: 01/20/2017 1:48 PM
[2017-01-20 13:58] LABS: BASO % 0.3 %; BASO ABS # 0.02 K/uL (0-0.2); COMPLETE YES; EOS % 1.6 %; HEMATOCRIT 41.7 % (37-47); IG% 0.3 %; LYMPH % 20.2 %; LYMPH ABS # 1.29 K/uL (1.2-3.4); MEAN CELL VOLUME 88.2 fL (80-100); MEAN CORPUSCULAR HEMOGLOBIN 29.4 pg (25-34); MEAN CORPUSCULAR HGB CONC 33.3 g/dl (32-36); MEAN PLATELET VOLUME 9.3 fL (7.4-10.4); MONO % 4.2 %; NEUT % 73.4 %; PLATELET COUNT 264 K/uL (130-400); RED BLOOD COUNT 4.73 M/uL (4.2-5.4); WHITE BLOOD COUNT 6.39 K/uL (4.8-10.8)
[2017-01-20 14:02] VITALS: O2SAT 97
[2017-01-20 14:16] LABS: ALT/SGPT 19 U/L (12-78); AST/SGOT 13 U/L (15-37); BLOOD UREA NITROGEN 11 mg/dl (7-18); BUN/CREATININE RATIO 15.2 (10-20); CALCIUM 8.7 mg/dl (8.5-10.1); CARBON DIOXIDE 32 mmol/L (21-32); CHLORIDE 102 mmol/L (98-107); CREATININE 0.75 mg/dl (0.60-1.20); GLUCOSE 96 mg/dl (70-99); POTASSIUM 3.4 mmol/L (3.5-5.1); SODIUM 141 mmol/L (136-145)
[2017-01-20 14:27] LABS: URINE APPEARANCE CLEAR (CLEAR); URINE BILIRUBIN NEG (NEG); URINE COLOR YELLOW; URINE NITRITE NEG (NEG); URINE SPECIFIC GRAVITY 1.018 (1.000-1.030); UROBILINOGEN NEG (NEG)
[2017-01-20 14:27] LABS: ALKALINE PHOSPHATASE 74 U/L (45-117)
[2017-01-20 14:29] LABS: MANUAL MICROSCOPIC REQUIRED? NO; REVIEW REQ? NO
[2017-01-20] MEDS ORDERED: SULFAMETHOXAZOLE/TRIMETHOPRIM DS 800/160MG TAB PO STA (14:31)
[2017-01-20] MEDS ORDERED: SULF800T23 PO (14:33)
--- NOTE | 2017-01-20 14:35 | EMERGENCY ROOM VISIT NOTE ---
History Report prepared by Alanis: Lucy Locke Under the Supervision of: Dr. Hossein العلي M.D. First contact with patient: 12:53 Chief Complaint: SYNCOPE (NEAR SYNCOPE) Stated Complaint: FAINTING SYMPTOMS, HOT AND COLD Nursing Triage Summary: triage note; pt reports since this am she has felt hot and then chills, dizziness "like i was going to pass out." pt reports yesterday she had nausea, vomitting, diarrhea. History of Present Illness The patient is a 71 year old female who presents to the Emergency Room with complaints of an episode of near syncope occurring MACHINE I TRIMMER. Since this morning she has felt hot and has been experiencing chills and dizziness. She felt like she was going to pass out. The patient reports that yesterday she had nausea, vomiting, and diarrhea. She is feeling much better today, but she has not eaten anything today. Source of History: patient Onset: MACHINE I TRIMMER Position: other (global) Quality: other (near syncope) Timing: other (episode) Modifying Factors (Worsening): other (recent illness) Associated Symptoms: + chills Review of Systems See HPI for pertinent positives & negatives. A total of 10 systems reviewed and were otherwise negative. Past Medical & Surgical Medical Problems: (1) Acute diverticulitis (2) Hypertension Nos (3) Influenza A (4) INTESTINAL OBSTRUCT NOS (5) NONRUPT CEREBRAL ANEURYM (6) Syncope and collapse Surgical Problems: (1) Hx of appendectomy (2) Hx of diagnostic laparoscopy, CHIKA (3) Hx of hysterectomy Family History Hypertension Social History Smoking Status: Never Smoker Drug Use: none Marital Status: Housing Status: lives alone Occupation Status: employed Current/Historical Medications Scheduled Aspirin (Aspirin), 325 MG PO HS Atenolol (Tenormin), 12.5 MG PO QAM Calcium Carbonate-Cholecalcife (Caltrate 600+D), 1 TABS PO BID Hydrochlorothiazide (Hctz), 25 MG PO QAM Sulfa/Trimethoprim (Bactrim Ds 800MG/160MG), 1 TAB PO BID Scheduled PRN Amitriptyline Hcl (Elavil), 10 MG PO HS PRN for Sleep Allergies Coded Allergies: No Known Allergies (Verified , 01/20/17) Physical Exam Vital Signs Date Time Temp Pulse Resp B/P (MAP) Pulse Ox O2 Delivery O2 Flow Rate FiO2 01/20/17 14:54 72 16 190/87 98 Room Air 01/20/17 14:03 61 16 194/92 97 Room Air 01/20/17 14:02 97 Room Air 01/20/17 14:02 61 01/20/17 13:33 62 176/75 98 Room Air 64 170/83 62 182/81 01/20/17 12:46 36.8 64 18 157/79 98 Room Air Physical Exam GENERAL: Patient is a healthy-appearing well-nourished elderly female. HEAD: Normocephalic atraumatic EYES: Ocular movements intact pupils equal and react to light OROPHARYNX mucous membranes are moist no exudates present no erythema or edema present NECK: Supple no nuchal rigidity CHEST: Good equal expansion LUNGS: Clear and equal to auscultation CARDIAC: Normal S1 and S2 ABDOMEN: Soft nontender no guarding BACK: No CVA tenderness EXTREMITIES: No pain upon palpation normal muscle strength in all groups no clubbing cyanosis or edema NEURO: Patient is following commands and answering questions appropriately. Alert and oriented x3 Cranial Nerves 2-12 grossly intact Medical Decision & Procedures ER Provider Diagnostic Interpretation: Radiology results as stated below per my review and radiologist interpretation: CHEST ONE VIEW PORTABLE CLINICAL HISTORY: Pt c/o syncope dyspnea COMPARISON STUDY: 10/04/2016 FINDINGS: The bones soft tissues and hemidiaphragms are normal. The cardiomediastinal silhouette is normal. The lungs are clear. The pulmonary vasculature is normal. IMPRESSION: Negative chest. Electronically signed by: Will Balbuena M.D. 01/20/2017 1:48 PM Dictated Date/Time: 01/20/2017 1:48 PM Laboratory Results 01/20/17 13:20 Red Blood Count 4.73, Mean Corpuscular Volume 88.2, Mean Corpuscular Hemoglobin 29.4, Mean Corpuscular Hemoglobin Concent 33.3, Mean Platelet Volume 9.3, Neutrophils (%) (Auto) 73.4, Lymphocytes (%) (Auto) 20.2, Monocytes (%) (Auto) 4.2, Eosinophils (%) (Auto) 1.6, Basophils (%) (Auto) 0.3, Neutrophils # (Auto) 4.69, Lymphocytes # (Auto) 1.29, Monocytes # (Auto) 0.27, Eosinophils # (Auto) 0.10, Basophils # (Auto) 0.02 01/20/17 13:20 Test 01/20/17 13:20 01/20/17 13:55 White Blood Count 6.39 K/uL (4.8-10.8) Red Blood Count 4.73 M/uL (4.2-5.4) Hemoglobin 13.9 g/dL (12.0-16.0) Hematocrit 41.7 % (37-47) Mean Corpuscular Volume 88.2 fL (80-100) Mean Corpuscular Hemoglobin 29.4 pg (25-34) Mean Corpuscular Hemoglobin Concent 33.3 g/dl (32-36) Platelet Count 264 K/uL (130-400) Mean Platelet Volume 9.3 fL (7.4-10.4) Neutrophils (%) (Auto) 73.4 % Lymphocytes (%) (Auto) 20.2 % Monocytes (%) (Auto) 4.2 % Eosinophils (%) (Auto) 1.6 % Basophils (%) (Auto) 0.3 % Neutrophils # (Auto) 4.69 K/uL (1.4-6.5) Lymphocytes # (Auto) 1.29 K/uL (1.2-3.4) Monocytes # (Auto) 0.27 K/uL (0.11-0.59) Eosinophils # (Auto) 0.10 K/uL (0-0.5) Basophils # (Auto) 0.02 K/uL (0-0.2) RDW Standard Deviation 42.1 fL (36.4-46.3) RDW Coefficient of Variation 13.1 % (11.5-14.5) Immature Granulocyte % (Auto) 0.3 % Immature Granulocyte # (Auto) 0.02 K/uL (0.00-0.02) Anion Gap 7.0 mmol/L (3-11) Est Creatinine Clear Calc Drug Dose 67.4 ml/min Estimated GFR () 92.9 Estimated GFR (Non- 80.2 BUN/Creatinine Ratio 15.2 (10-20) Calcium Level 8.7 mg/dl (8.5-10.1) Total Bilirubin 0.5 mg/dl (0.2-1) Direct Bilirubin < 0.1 mg/dl (0-0.2) Aspartate Amino Transf (AST/SGOT) 13 U/L (15-37) Alanine Aminotransferase (ALT/SGPT) 19 U/L (12-78) Alkaline Phosphatase 74 U/L (45-117) Total Creatine Kinase 47 U/L (26-192) Total Protein 7.2 gm/dl (6.4-8.2) Albumin 3.5 gm/dl (3.4-5.0) Thyroid Stimulating Hormone (TSH) 4.390 uIu/ml (0.300-4.500) Urine Color YELLOW Urine Appearance CLEAR (CLEAR) Urine pH 7.0 (4.5-7.5) Urine Specific [place] 1.018 (1.000-1.030) Urine Protein NEG (NEG) Urine Glucose (UA) NEG (NEG) Urine Ketones NEG (NEG) Urine Occult Blood 1+ (NEG) Urine Nitrite NEG (NEG) Urine Bilirubin NEG (NEG) Urine Urobilinogen NEG (NEG) Urine Leukocyte Esterase NEG (NEG) Urine WBC (Auto) 1-5 /hpf (0-5) Urine RBC (Auto) 5-10 /hpf (0-4) Urine Hyaline Casts (Auto) 1-5 /lpf (0-5) Urine Epithelial Cells (Auto) 5-10 /lpf (0-5) Urine Bacteria (Auto) NEG (NEG) Labs reviewed by ED physician. Medications Administered Medications (Trade) Dose Ordered Sig/Rishabh Route Start Time Stop Time Status Last Admin Dose Admin Sodium Chloride 1,000 ml @ 999 mls/hr Q1H1M STAT IV 01/20/17 12:58 01/20/17 13:58 DC 01/20/17 14:00 999 MLS/HR Trimethoprim/ Sulfamethoxazole (Septra Ds 800/ 160MG Tab) 1 tab NOW STAT PO 01/20/17 14:31 01/20/17 14:32 DC 01/20/17 14:50 1 TAB ECG Indication: syncope Rate (beats per minute): 59 Rhythm: sinus bradycardia Findings: no acute ischemic change, no ectopy ED Course 1253: Past medical records reviewed. The patient was evaluated in room C12B. A complete history and physical examination was performed. 1258: NSS 1000 ml @ 999 mls/hr IV 1431: Septra Ds 800/160 mg 1 tab PO 1439: I reassessed the patient at this time. She is feeling better and resting comfortably. I discussed the results and treatment plan with the patient. I answered all pertaining questions that she had. She expressed understanding and verbalized agreement. The patient will be discharged home. Medical Decision Differential diagnosis: Etiologies such as vasovagal event, infection, hypoglycemia, electrolyte abnormalities, cardiac sources, intracerebral event, toxicologic, neurologic, as well as others were entertained. Medication Reconciliation: I attest that I have personally reviewed the patient' s current medication list. Blood Pressure Screening: Patient was found to have an elevated blood pressure and was referred to their primary care doctor for recheck and further treatment. This is a 71-year-old female who presents emergency department complaining of syncopal episode. The patient for she did not eat today and I suspect this contributed to her episode. In addition the patient has a history of urinary tract infections. For this reason she was started on Bactrim and given normal saline bolus. She was also fed in the emergency department. Had this point the patient wishes to leave. Patient was in agreement with the treatment plan. Impression Primary Impression: Near syncope Scribe Attestation The scribe's documentation has been prepared under my direction and personally reviewed by me in its entirety. I confirm that the note above accurately reflects all work, treatment, procedures, and medical decision making performed by me. Departure Information Dispostion Home / Self-Care Prescriptions Sulfa/Trimethoprim (Bactrim Ds 800MG/160MG) Tab 1 TAB PO BID for 7 Days, #14 TAB Prov: Hossein العلي MD 01/20/17 Referrals Wong Navarrete D.O. (PCP) Forms HOME CARE DOCUMENTATION FORM, IMPORTANT VISIT INFORMATION Patient Instructions My [facility] Additional Instructions You were found to have an elevated blood pressure today (>120 sytolic or >90 diastolic). Per medicare guidelines, you need to follow up with this blood pressure screening with your Primary Care Physician (PCP). For a new PCP call [phone]. Radiographs and CTs will be reread by a radiologist in the morning. Culture results are usually available in approx 48 hours You have been examined and treated today on an emergency basis only. This is not a substitute for, or an effort to provide, complete comprehensive medical care. It is impossible to recognize and treat all injuries or illnesses in a single emergency department visit. It is therefore important that you follow up closely with Dr Navarrete. Call as soon as possible for an appointment. Thank you for your time and consideration. I look forward to speaking with you again soon. Please don't hesitate to call us if you have any questions.
[2017-01-20 14:54] VITALS: BP 190/87; PULSE 72; O2SAT 98
== END 2017-01-20 14:57 | disposition home or self-care (01) ==
LOC: C.EDB 12:38 → C.EDC 14:57
DX: R55 Syncope and collapse (principal); I10 Essential (primary) hypertension; K57.92 Diverticulitis of intestine, part unspecified, without perforation or abscess without bleeding; Z82.49 Family history of ischemic heart disease and other diseases of the circulatory system; Z79.82 Long term (current) use of aspirin; Z79.899 Other long term (current) drug therapy

== ENCOUNTER → 2017-03-04 | Outpatient (CLI) | payer BC ==
[~2017-03-04] MED LIST changes: -KFL500 PO; -MULT-506 PO; -TMF75 PO
== END | disposition home or self-care (01) ==
LOC: C.MAMM 11:13
PROVIDERS: ATTEND Nurse Practitioner Family
DX: M81.0 Age-related osteoporosis without current pathological fracture (principal); M85.851 Other specified disorders of bone density and structure, right thigh; M85.852 Other specified disorders of bone density and structure, left thigh

== ENCOUNTER 2017-07-07 13:51 | Observation (INO) | payer BC, OTHER ==
[~2017-07-07] VITALS: Ht 162.6 cm; Wt 76.5 kg
[2017-07-07] MEDS ORDERED: MoRPHine SULFATE 4 MG/ML 1 ML CARP\\VIAL IV STA (14:11)
[2017-07-07] MEDS ORDERED: OPTIRAY 320 IV PRN (14:30)
--- NOTE | 2017-07-07 14:30 | EMERGENCY ROOM VISIT NOTE ---
History First contact with patient: 13:53 Chief Complaint: ABDOMINAL PAIN Stated Complaint: ILLNESS Nursing Triage Summary: Pt presents ALS for evaluation sudden onset of a right sided abd pain, N,V,D. Pt reports fever. Pt reports hx of diverticulitis, HTN. History of Present Illness The patient is a 72 year old female who presents to the Emergency Room via ambulance with complaints of fever (temperature as per ambulance hand over - 101 degrees Fahrenheit), lower abdominal pain, nausea, vomiting, diarrhea since this morning. She reports feeling well yesterday without any bowel issues, no constipation. In the early hours this morning she started having nausea followed by vomiting then diarrhea and abdominal pain. The abdominal pain is across the lower part of her abdomen, stabbing sensation, worse on bowel movements, severity 8/10 at worse, currently 5/10. Diarrhea is still formed but loose, no melena or blood noted. She has a past medical history of diverticulitis in sigmoid colon in 2014 and small bowel obstruction in 2012. She reports having a normal colonoscopy apart from diverticulosis in 2014 after her diverticulitis episode. She has had a prior hysterectomy with bilateral oophorectomy, appendicectomy and cholecystectomy. She called for an ambulance today as having dizziness on standing only. They noted a fever of 101 and gave Zofran. She took her blood pressure medication this morning. She denies any recent antibiotic use, travel history. Only unusual food was crab dip 2 days prior which no one else ate. She does not work in Healthcare. Review of Systems She denies any pain on urination, change in smell or frequency of urine. All other systems reviewed and otherwise negative other than HPI Past Medical/Surgical History Medical Problems: (1) Acute diverticulitis (2) Hypertension Nos (3) Influenza A (4) INTESTINAL OBSTRUCT NOS (5) NONRUPT CEREBRAL ANEURYM (6) Syncope and collapse Surgical Problems: (1) Hx of appendectomy (2) Hx of diagnostic laparoscopy, CHIKA (3) Hx of hysterectomy Family History Hypertension Social History Smoking Status: Former Smoker Smokeless Tobacco Use: No Alcohol Use: occasionally Drug Use: none Marital Status: Housing Status: lives alone Occupation Status: employed Current/Historical Medications Scheduled Alendronate Sodium (Alendronate Sodium), 70 MG PO WK Atenolol (Tenormin), 12.5 MG PO QAM Calcium Carbonate-Cholecalcife (Caltrate 600+D), 1 TABS PO BID Ciprofloxacin (Ciprofloxacin HCl), 1 TAB PO Q12 Hydrochlorothiazide (Hctz), 25 MG PO QAM Metronidazole (Flagyl), 500 MG PO TID Scheduled PRN Amitriptyline Hcl (Elavil), 10 MG PO HS PRN for Sleep Allergies Coded Allergies: No Known Allergies (Verified , 07/07/17) Physical Exam Vital Signs Date Time Temp Pulse Resp B/P (MAP) Pulse Ox O2 Delivery O2 Flow Rate FiO2 07/07/17 19:18 72 18 156/75 96 Room Air 07/07/17 17:38 36.7 64 18 167/77 98 Room Air 07/07/17 16:39 72 18 176/78 98 Room Air 07/07/17 14:05 57 07/07/17 14:04 58 18 176/87 99 Room Air Physical Exam VITAL SIGNS: were reviewed as above GENERAL: no acute distress, appears non toxic SKIN: Warm dry and pink, no rashes, no lesions HEAD: Normocephalic and atraumatic EYES: extraocular muscles intact, pupils equal and reactive to light OROPHARYNX: non erythematous, clear and moist LUNGS: No respiratory distress, no accessory use, clear to auscultation, no accessory muscle use HEART: Regular rate and rhythm, heart sounds 1+2, no murmurs ABDOMEN: Soft and non distended, bowel sounds normal, pain on palpation on lower abdomen worse on RLQ compared to LLQ, no rebound or guarding, fecal occult blood was positive BACK: no CVA tenderness EXTREMITIES: Warm and well perfused, no calf tenderness/swelling, no pedal edema. NEUROLOGICALLY: Awake alert and oriented without focal deficit. There is no facial droop. Speech is clear. Vision is grossly normal. MUSCULOSKELETAL: Good muscle tone. No evidence of trauma Medical Decision & Procedures ER Provider Diagnostic Interpretation: CHEST ONE VIEW PORTABLE CLINICAL HISTORY: Abdominal pain. Possible bowel perforation. COMPARISON STUDY: 01/20/2017 FINDINGS: The cardiac and mediastinal contours are normal. There is no evidence of focal pulmonary consolidation. There is no evidence of failure. No pleural effusions are visualized.[ There is an old right sixth rib fracture. There is no evidence of free intraperitoneal air. IMPRESSION: No active disease in the chest. Electronically signed by: Jersey Foster M.D. 07/07/2017 3:06 PM Dictated Date/Time: 07/07/2017 3:05 PM ABD/PELVIS IV CONTRAST ONLY CT DOSE: 805.58 mGycm HISTORY: Pain ?DIVERTICULITIS TECHNIQUE: Multiaxial CT images of the abdomen and pelvis were performed following the use of intravenous contrast. A dose lowering technique was utilized adhering to the principles of ALARA. COMPARISON STUDY: 03/26/2015 FINDINGS: Lung bases are clear liver spleen and pancreas are unremarkable. Bowel pattern is nonobstructive. The a sending and transverse colon is are unremarkable. Moderate wall thickening of the descending colon with more significant wall thickening of the proximal to mid sigmoid. Moderate pericolonic infiltrative change. No evidence for abscess collection or obstruction. Several diverticuli associated primarily the sigmoid colon. IMPRESSION: 1. Findings consistent with acute proximal to mid sigmoid as well as descending colonic diverticulitis/colitis. 2. No evidence for abscess collection or obstruction. 3. Moderate pericolonic infiltrative change. The above report was generated using voice recognition software. It may contain grammatical, syntax or spelling errors. Electronically signed by: Will Balbuena M.D. 07/07/2017 3:58 PM Dictated Date/Time: 07/07/2017 3:54 PM Laboratory Results 07/07/17 14:50 Red Blood Count 5.23, Mean Corpuscular Volume 86.8, Mean Corpuscular Hemoglobin 30.6, Mean Corpuscular Hemoglobin Concent 35.2, Mean Platelet Volume 9.5, Neutrophils (%) (Auto) 87.0, Lymphocytes (%) (Auto) 7.2, Monocytes (%) (Auto) 5.3, Eosinophils (%) (Auto) 0.2, Basophils (%) (Auto) 0.1, Neutrophils # (Auto) 12.54, Lymphocytes # (Auto) 1.04, Monocytes # (Auto) 0.77, Eosinophils # (Auto) 0.03, Basophils # (Auto) 0.01 07/07/17 14:50 Test 07/07/17 13:59 07/07/17 14:50 07/07/17 15:10 White Blood Count 14.42 K/uL (4.8-10.8) Red Blood Count 5.23 M/uL (4.2-5.4) Hemoglobin 16.0 g/dL (12.0-16.0) Hematocrit 45.4 % (37-47) Mean Corpuscular Volume 86.8 fL (80-100) Mean Corpuscular Hemoglobin 30.6 pg (25-34) Mean Corpuscular Hemoglobin Concent 35.2 g/dl (32-36) Platelet Count 296 K/uL (130-400) Mean Platelet Volume 9.5 fL (7.4-10.4) Neutrophils (%) (Auto) 87.0 % Lymphocytes (%) (Auto) 7.2 % Monocytes (%) (Auto) 5.3 % Eosinophils (%) (Auto) 0.2 % Basophils (%) (Auto) 0.1 % Neutrophils # (Auto) 12.54 K/uL (1.4-6.5) Lymphocytes # (Auto) 1.04 K/uL (1.2-3.4) Monocytes # (Auto) 0.77 K/uL (0.11-0.59) Eosinophils # (Auto) 0.03 K/uL (0-0.5) Basophils # (Auto) 0.01 K/uL (0-0.2) RDW Standard Deviation 42.0 fL (36.4-46.3) RDW Coefficient of Variation 13.2 % (11.5-14.5) Immature Granulocyte % (Auto) 0.2 % Immature Granulocyte # (Auto) 0.03 K/uL (0.00-0.02) Est Creatinine Clear Calc Drug Dose 57.2 ml/min Estimated GFR () 75.0 Estimated GFR (Non- 64.7 BUN/Creatinine Ratio 17.2 (10-20) Calcium Level 9.4 mg/dl (8.5-10.1) Total Bilirubin 0.7 mg/dl (0.2-1) Aspartate Amino Transf (AST/SGOT) 22 U/L (15-37) Alanine Aminotransferase (ALT/SGPT) 22 U/L (12-78) Alkaline Phosphatase 100 U/L (45-117) Total Protein 8.0 gm/dl (6.4-8.2) Albumin 4.1 gm/dl (3.4-5.0) Globulin 3.9 gm/dl (2.5-4.0) Albumin/Globulin Ratio 1.0 (0.9-2) Lipase 113 U/L (73-393) Bedside Hemoglobin 16.3 g/dl (12.0-16.0) Bedside Hematocrit 48 % (37-47) Bedside Sodium 137 mEq/L (135-144) Bedside Potassium 3.2 mEq/L (3.3-5.0) Bedside Chloride 98 mEq/L (101-112) Bedside Total CO2 28 mEq/l (24-31) Anion Gap 16.0 mmol/L (16-25) Bedside Blood Urea Nitrogen 15 mg/dl (7-18) Bedside Creatinine 0.9 mg/dl (0.6-1.3) Bedside Glucose (other) 116 mg/dl (70-99) Bedside Ionized Calcium (Yolanda) 1.12 mmol/l (1.12-1.32) Medications Administered Medications (Trade) Dose Ordered Sig/Rishabh Route Start Time Stop Time Status Last Admin Dose Admin Morphine Sulfate (MoRPHine SULFATE INJ) 4 mg NOW STAT IV 07/07/17 14:11 07/07/17 14:17 DC 07/07/17 14:42 4 MG Sodium Chloride 1,000 ml @ 999 mls/hr Q1H1M STAT IV 07/07/17 15:15 07/07/17 16:15 DC 07/07/17 15:15 999 MLS/HR Ondansetron HCl (Zofran Inj) 4 mg NOW STAT IV 07/07/17 15:15 07/07/17 15:16 DC 07/07/17 15:35 4 MG Hydromorphone HCl (Dilaudid Inj) 0.5 mg NOW STAT IV 07/07/17 15:15 07/07/17 15:16 DC 07/07/17 15:34 0.5 MG Ciprofloxacin/ Dextrose (Cipro / D5W) 400 mg NOW STAT IV 07/07/17 16:11 07/07/17 16:13 DC 07/07/17 16:37 400 MG Metronidazole (Flagyl / Nss) 500 mg NOW STAT IV 07/07/17 16:11 07/07/17 19:59 DC 07/07/17 16:37 500 MG Hydromorphone HCl (Dilaudid Inj) 0.5 mg NOW STAT IV 07/07/17 17:32 07/07/17 17:34 DC 07/07/17 19:13 0.5 MG Acetaminophen (Tylenol Tab) 650 mg NOW STAT PO 07/07/17 17:32 07/07/17 17:34 DC 07/07/17 17:32 650 MG Potassium Chloride (Klor-Con M10) 40 meq NOW STAT PO 07/07/17 17:49 07/07/17 17:50 DC 07/07/17 19:13 40 MEQ ED Course 14:00 Reviewed patient charts. Patient was assessed in room C6. Complete history and physical was performed by myself. 14:[address] Dodson who separately performed history and physical 16:12 Reassessed patient and discussed diagnosis of diverticulitis. Benefits and risks of inpatient vs. outpatient therapy. Will give one dose of IV antibiotics here and discharge as long as not dizzy and tolerating clear liquids. 17:30 Patient was reassessed and having increasing pain. Still receiving IV antibiotics. Acetaminophen 650 mg PO and Dilaudid 0.5mg IV given. Patient given clear water to make sure she could tolerate it for discharge. 18:30 Patient was reassessed and continues to have increasing pain. Examination now has some guarding and despite IV opiates her pain was not well controlled. Discussed with Dr Flores and advised 18:45 Discussed with [facility] hospital[place] High, advised if not urgent to discuss with incoming lead systems engineer 19:30 Discussed with [facility] lead systems engineer Dr Ovalles who will evaluate the patient further for admission Medical Decision Prior records/ancillary studies reviewed. Triage Nursing notes reviewed. Additional history obtained from patient. The patient's history was concerning for abdominal pain. Differential diagnosis: Etiologies such as appendicitis, diverticulitis, PUD, biliary pathology, UTI, pancreatitis, obstruction, mesenteric ischemia, aortic pathology, infections, inflammatory bowel disease, renal colic, as well as others were entertained. Physical examination findings: As above. lower abdominal pain, initially without guarding but on repeat examination she started developing guarding ER treatment provided: Ciprofloxacin 400 mg IV Metronidazole 500mg IV NSS 1 L On reassessment the patient felt better. Diagnostics interpreted by me: The labs revealed elevated WBC consistent with acute diverticulitis Imaging studies: CT confirmed diverticulitis in the sigmoid colon with pericolonic infiltrative change Initial plan as discussed with Dr Dodson (attending ER physician) was to discharge the patient. However given worsening abdominal pain with taking clear liquids I discussed the case with Dr Flores who took over the case and agreed with plan to discuss with hospitalist for evaluation for admission. Consultation: A consultation was placed with the [facility] hospitalist (Dr Ovalles). The case was discussed and diagnostics were reviewed. The patient was evaluated in the ER for further treatment. Impression Primary Impression: Acute diverticulitis Departure Information Dispostion Being Evaluated By Hospitalist Condition FAIR Referrals Wong Navarrete D.O. (PCP) Patient Instructions My [facility] Resident Tracking Resident Involvement: Resident Care Provided Care Provided: Adult ED
--- NOTE | 2017-07-07 15:07 | DIAGNOSTIC IMAGING REPORT ---
CHEST ONE VIEW PORTABLE CLINICAL HISTORY: Abdominal pain. Possible bowel perforation. COMPARISON STUDY: 01/20/2017 FINDINGS: The cardiac and mediastinal contours are normal. There is no evidence of focal pulmonary consolidation. There is no evidence of failure. No pleural effusions are visualized.[ There is an old right sixth rib fracture. There is no evidence of free intraperitoneal air. IMPRESSION: No active disease in the chest. Electronically signed by: Jersey Foster M.D. 07/07/2017 3:06 PM Dictated Date/Time: 07/07/2017 3:05 PM
[2017-07-07] MEDS ORDERED: ONDANSETRON INJ 2 MG/ML 2 ML VIAL IV STA ×2 (15:15→18:35)
[2017-07-07] MEDS ORDERED: HYDROmorphone INJ 0.5 MG/0.5 ML SYR IV STA ×2 (15:15→17:32)
[2017-07-07] MEDS ORDERED: SODIUM CHLORIDE 0.9% 1000ML 1,000 ML IV STA (15:15)
[2017-07-07 15:18] LABS: BASO % 0.1 %; BASO ABS # 0.01 K/uL (0-0.2); COMPLETE YES; EOS % 0.2 %; HEMATOCRIT 45.4 % (37-47); IG% 0.2 %; LYMPH % 7.2 %; LYMPH ABS # 1.04 K/uL (1.2-3.4); MEAN CELL VOLUME 86.8 fL (80-100); MEAN CORPUSCULAR HEMOGLOBIN 30.6 pg (25-34); MEAN CORPUSCULAR HGB CONC 35.2 g/dl (32-36); MEAN PLATELET VOLUME 9.5 fL (7.4-10.4); MONO % 5.3 %; PLATELET COUNT 296 K/uL (130-400); RED BLOOD COUNT 5.23 M/uL (4.2-5.4); WHITE BLOOD COUNT 14.42 K/uL (4.8-10.8)
[2017-07-07 15:22] LABS: ISTAT CREATININE 0.9 mg/dl (0.6-1.3); ISTAT HEMOGLOBIN 16.3 g/dl (12.0-16.0); ISTAT IONIZED CALCIUM 1.12 mmol/l (1.12-1.32)
[2017-07-07 15:33] LABS: BUN/CREATININE RATIO 17.2 (10-20); CALCIUM 9.4 mg/dl (8.5-10.1); CREATININE 0.89 mg/dl (0.60-1.20); POTASSIUM 3.1 mmol/L (3.5-5.1)
--- NOTE | 2017-07-07 15:59 | DIAGNOSTIC IMAGING REPORT ---
ABD/PELVIS IV CONTRAST ONLY CT DOSE: 805.58 mGycm HISTORY: Pain ?DIVERTICULITIS TECHNIQUE: Multiaxial CT images of the abdomen and pelvis were performed following the use of intravenous contrast. A dose lowering technique was utilized adhering to the principles of ALARA. COMPARISON STUDY: 03/26/2015 FINDINGS: Lung bases are clear liver spleen and pancreas are unremarkable. Bowel pattern is nonobstructive. The a sending and transverse colon is are unremarkable. Moderate wall thickening of the descending colon with more significant wall thickening of the proximal to mid sigmoid. Moderate pericolonic infiltrative change. No evidence for abscess collection or obstruction. Several diverticuli associated primarily the sigmoid colon. IMPRESSION: 1. Findings consistent with acute proximal to mid sigmoid as well as descending colonic diverticulitis/colitis. 2. No evidence for abscess collection or obstruction. 3. Moderate pericolonic infiltrative change. The above report was generated using voice recognition software. It may contain grammatical, syntax or spelling errors. Electronically signed by: Will Balbuena M.D. 07/07/2017 3:58 PM Dictated Date/Time: 07/07/2017 3:54 PM
[2017-07-07] MEDS ORDERED: FSM70 PO (16:05)
[2017-07-07] MEDS ORDERED: METRONIDAZOLE 500MG / 100ML NSS IV STA (16:11)
[2017-07-07] MEDS ORDERED: CIPROFLOXACIN 400MG / 200ML D5W IV STA (16:11)
[2017-07-07] MEDS ORDERED: ACETAMINOPHEN 325 MG TAB PO STA (17:32)
[2017-07-07] MEDS ORDERED: ONDANSETRON HOME PACK 4MG OD TAB PO ONE (17:45)
[2017-07-07] MEDS ORDERED: OXYCODONE IR HOME PACK PO ONE (17:45)
--- NOTE | 2017-07-07 17:48 | EMERGENCY ROOM VISIT NOTE ---
History Report prepared by Alanis: Remberto Mena Under the Supervision of: Yuly ForrestO. First contact with patient: 13:53 Chief Complaint: ABDOMINAL PAIN Stated Complaint: ILLNESS Nursing Triage Summary: Pt presents ALS for evaluation sudden onset of a right sided abd pain, N,V,D. Pt reports fever. Pt reports hx of diverticulitis, HTN. History of Present Illness The patient is a 72 year old female who presents to the Emergency Room with complaints of constant lower abdominal pain starting earlier today which she describes as a stabbing pain. She rates her discomfort as a 5/10 ins severity. She notes that the pain is worsened with bowel movements. The patient states that she additionally has nausea, vomiting, and diarrhea. The patient has a history of diverticulitis, and she states that this feels similar to the last time she had it which was a while ago. She reports that she becomes dizzy when she stands. She denies any hematochezia, and she has had diarrhea 10-20 times today. The patient vomited once this morning, and then she was dry heaving afterwards. The patient additionally has a history of cholecystectomy, appendectomy, and a complete hysterectomy. She denies nay recent antibiotics, and she has no history of C Diff. Pt denies headache, change in vision, fevers, chest pain, shortness of breath, cough, runny nose, vaginal bleeding or discharge, pain with urination, and melena. Source of History: patient Onset: earlier today Position: abdomen (lower) Symptom Intensity: 5/10 Quality: stabbing Timing: constant Modifying Factors (Worsening): defecation Associated Symptoms: + nausea, + vomiting, + diarrhea Review of Systems See HPI for pertinent positives & negatives. A total of 10 systems reviewed and were otherwise negative. Past Medical & Surgical Medical Problems: (1) Acute diverticulitis (2) Hypertension Nos (3) Influenza A (4) INTESTINAL OBSTRUCT NOS (5) NONRUPT CEREBRAL ANEURYM (6) Syncope and collapse Surgical Problems: (1) Hx of appendectomy (2) Hx of diagnostic laparoscopy, CHIKA (3) Hx of hysterectomy Family History Hypertension Social History Smoking Status: Former Smoker Drug Use: none Marital Status: Housing Status: lives alone Occupation Status: employed Current/Historical Medications Scheduled Alendronate Sodium (Alendronate Sodium), 70 MG PO WK Atenolol (Tenormin), 12.5 MG PO QAM Calcium Carbonate-Cholecalcife (Caltrate 600+D), 1 TABS PO BID Hydrochlorothiazide (Hctz), 25 MG PO QAM Scheduled PRN Amitriptyline Hcl (Elavil), 10 MG PO HS PRN for Sleep Allergies Coded Allergies: No Known Allergies (Verified , 07/07/17) Physical Exam Vital Signs Date Time Temp Pulse Resp B/P (MAP) Pulse Ox O2 Delivery O2 Flow Rate FiO2 07/07/17 17:38 36.7 64 18 167/77 98 Room Air 07/07/17 16:39 72 18 176/78 98 Room Air 07/07/17 14:05 57 07/07/17 14:04 58 18 176/87 99 Room Air Physical Exam GENERAL: Sitting up in bed, alert, well appearing for her stated age. Minimal distress holding lower abdomen. Non-toxic EYE EXAM: normal conjunctiva. OROPHARYNX: no exudate, no erythema, lips, buccal mucosa, and tongue normal and mucous membranes are moist NECK: supple, no nuchal rigidity, no adenopathy, non-tender LUNGS: Clear to auscultation. Normal chest wall mechanics HEART: no murmurs, S1 normal and S2 normal ABDOMEN: Mild tenderness in te bilateral lower abdomen. Abdomen soft, normo- active bowel sounds, no masses, no rebound or guarding. BACK: Back is symmetrical on inspection and there is no deformity, no midline tenderness, no CVA tenderness. SKIN: no rashes and no bruising UPPER EXTREMITIES: upper extremities are grossly normal. LOWER EXTREMITIES: No pitting edema. NEURO EXAM: Normal sensorium, cranial nerves II-XII grossly intact, normal speech, no gross weakness of arms, no gross weakness of legs. Gross sensation intact. Medical Decision & Procedures ER Provider Diagnostic Interpretation: Radiology results as stated below per my review and the radiologist's interpretation: CHEST ONE VIEW PORTABLE CLINICAL HISTORY: Abdominal pain. Possible bowel perforation. COMPARISON STUDY: 01/20/2017 FINDINGS: The cardiac and mediastinal contours are normal. There is no evidence of focal pulmonary consolidation. There is no evidence of failure. No pleural effusions are visualized.[ There is an old right sixth rib fracture. There is no evidence of free intraperitoneal air. IMPRESSION: No active disease in the chest. Electronically signed by: Jersey Foster M.D. 07/07/2017 3:06 PM Dictated Date/Time: 07/07/2017 3:05 PM ABD/PELVIS IV CONTRAST ONLY CT DOSE: 805.58 mGycm HISTORY: Pain ?DIVERTICULITIS TECHNIQUE: Multiaxial CT images of the abdomen and pelvis were performed following the use of intravenous contrast. A dose lowering technique was utilized adhering to the principles of ALARA. COMPARISON STUDY: 03/26/2015 FINDINGS: Lung bases are clear liver spleen and pancreas are unremarkable. Bowel pattern is nonobstructive. The a sending and transverse colon is are unremarkable. Moderate wall thickening of the descending colon with more significant wall thickening of the proximal to mid sigmoid. Moderate pericolonic infiltrative change. No evidence for abscess collection or obstruction. Several diverticuli associated primarily the sigmoid colon. IMPRESSION: 1. Findings consistent with acute proximal to mid sigmoid as well as descending colonic diverticulitis/colitis. 2. No evidence for abscess collection or obstruction. 3. Moderate pericolonic infiltrative change. The above report was generated using voice recognition software. It may contain grammatical, syntax or spelling errors. Electronically signed by: Will Balbuean M.D. 07/07/2017 3:58 PM Dictated Date/Time: 07/07/2017 3:54 PM Laboratory Results 07/07/17 14:50 Red Blood Count 5.23, Mean Corpuscular Volume 86.8, Mean Corpuscular Hemoglobin 30.6, Mean Corpuscular Hemoglobin Concent 35.2, Mean Platelet Volume 9.5, Neutrophils (%) (Auto) 87.0, Lymphocytes (%) (Auto) 7.2, Monocytes (%) (Auto) 5.3, Eosinophils (%) (Auto) 0.2, Basophils (%) (Auto) 0.1, Neutrophils # (Auto) 12.54, Lymphocytes # (Auto) 1.04, Monocytes # (Auto) 0.77, Eosinophils # (Auto) 0.03, Basophils # (Auto) 0.01 07/07/17 14:50 Test 07/07/17 13:59 07/07/17 14:50 07/07/17 15:10 White Blood Count 14.42 K/uL (4.8-10.8) Red Blood Count 5.23 M/uL (4.2-5.4) Hemoglobin 16.0 g/dL (12.0-16.0) Hematocrit 45.4 % (37-47) Mean Corpuscular Volume 86.8 fL (80-100) Mean Corpuscular Hemoglobin 30.6 pg (25-34) Mean Corpuscular Hemoglobin Concent 35.2 g/dl (32-36) Platelet Count 296 K/uL (130-400) Mean Platelet Volume 9.5 fL (7.4-10.4) Neutrophils (%) (Auto) 87.0 % Lymphocytes (%) (Auto) 7.2 % Monocytes (%) (Auto) 5.3 % Eosinophils (%) (Auto) 0.2 % Basophils (%) (Auto) 0.1 % Neutrophils # (Auto) 12.54 K/uL (1.4-6.5) Lymphocytes # (Auto) 1.04 K/uL (1.2-3.4) Monocytes # (Auto) 0.77 K/uL (0.11-0.59) Eosinophils # (Auto) 0.03 K/uL (0-0.5) Basophils # (Auto) 0.01 K/uL (0-0.2) RDW Standard Deviation 42.0 fL (36.4-46.3) RDW Coefficient of Variation 13.2 % (11.5-14.5) Immature Granulocyte % (Auto) 0.2 % Immature Granulocyte # (Auto) 0.03 K/uL (0.00-0.02) Est Creatinine Clear Calc Drug Dose 57.2 ml/min Estimated GFR () 75.0 Estimated GFR (Non- 64.7 BUN/Creatinine Ratio 17.2 (10-20) Calcium Level 9.4 mg/dl (8.5-10.1) Total Bilirubin 0.7 mg/dl (0.2-1) Aspartate Amino Transf (AST/SGOT) 22 U/L (15-37) Alanine Aminotransferase (ALT/SGPT) 22 U/L (12-78) Alkaline Phosphatase 100 U/L (45-117) Total Protein 8.0 gm/dl (6.4-8.2) Albumin 4.1 gm/dl (3.4-5.0) Globulin 3.9 gm/dl (2.5-4.0) Albumin/Globulin Ratio 1.0 (0.9-2) Lipase 113 U/L (73-393) Bedside Hemoglobin 16.3 g/dl (12.0-16.0) Bedside Hematocrit 48 % (37-47) Bedside Sodium 137 mEq/L (135-144) Bedside Potassium 3.2 mEq/L (3.3-5.0) Bedside Chloride 98 mEq/L (101-112) Bedside Total CO2 28 mEq/l (24-31) Anion Gap 16.0 mmol/L (16-25) Bedside Blood Urea Nitrogen 15 mg/dl (7-18) Bedside Creatinine 0.9 mg/dl (0.6-1.3) Bedside Glucose (other) 116 mg/dl (70-99) Bedside Ionized Calcium (Yolanda) 1.12 mmol/l (1.12-1.32) Laboratory results per my review. Medications Administered Medications (Trade) Dose Ordered Sig/Rishabh Route Start Time Stop Time Status Last Admin Dose Admin Morphine Sulfate (MoRPHine SULFATE INJ) 4 mg NOW STAT IV 07/07/17 14:11 07/07/17 14:17 DC 07/07/17 14:42 4 MG Sodium Chloride 1,000 ml @ 999 mls/hr Q1H1M STAT IV 07/07/17 15:15 07/07/17 16:15 DC 07/07/17 15:15 999 MLS/HR Ondansetron HCl (Zofran Inj) 4 mg NOW STAT IV 07/07/17 15:15 07/07/17 15:16 DC 07/07/17 15:35 4 MG Hydromorphone HCl (Dilaudid Inj) 0.5 mg NOW STAT IV 07/07/17 15:15 07/07/17 15:16 DC 07/07/17 15:34 0.5 MG Ciprofloxacin/ Dextrose (Cipro / D5W) 400 mg NOW STAT IV 07/07/17 16:11 07/07/17 16:13 DC 07/07/17 16:37 400 MG Metronidazole (Flagyl / Nss) 500 mg NOW STAT IV 07/07/17 16:11 07/07/17 16:13 DC 07/07/17 16:37 500 MG ED Course ED COURSE: Vital signs were reviewed and showed bradycardia and hypertension The patients medical record was reviewed The above diagnostic studies were performed and reviewed. ED treatments and interventions as stated above. 1353: The patient was evaluated in room C6. A complete history and physical examination was performed. 1411: Morphine Sulfate 4mg IV 1515: I reassessed the patient, and she was having more pain. I ordered Dilaudid 0.5mg IV, Zofran 4mg IV, Sodium Chloride 1000 ml @ 999 mls/hr IV 1721: I reevaluated the patient, and she is feeling better. 1800: Upon reevaluation, the patient is doing well.I discussed my findings with the patient and she understands and agrees with the treatment plan. Based on the patients age, coexisting illnesses, exam and lab findings the decision to treat as an outpatient was made. The patient remained stable while under my care. The patient appeared well at the time of discharge. Medical Decision Differential diagnoses includes but is not limited to gastritis, peptic ulcer disease, GERD, gallbladder disease, pancreatitis, small bowel obstruction, acute coronary syndrome, pericarditis, ischemic bowel, irritable bowel disease, irritable bowel syndrome, appendicitis, diverticulitis, malignancy, hernia, urinary tract infection, torsion, /ectopic , perforation, trauma, infectious. Patient is a 72-year-old female who presents to ER for lower abdominal pain associated with nausea and vomiting. CBC shows a leukocytosis of 14,000. BMP shows a mild hypokalemia at 3.1. LFTs and bilirubin was unremarkable. Lipase is normal. CT abdomen and pelvis shows acute diverticulitis. This is consistent with her presentation and previous bouts of diverticulitis. Patient was given IV Flagyl and Cipro. Potassium was given orally. Patient was seen independently of the resident. She was tolerating oral fluids. As of 5:50 PM current plan is to discharge her and have her follow-up as an outpatient. She was comfortable with this at this time. Patient was given 2 doses of IV narcotics. Patient was given IV fluids. IV Zofran as well. Discussed with Pt concerning signs and symptoms to watch out for. Pt was instructed to follow up with their PCP and discussed with the patient their option to return to the ED at anytime for persistent or worsening symptoms. The appropriate anticipatory guidance and out-patient management, including indications for return to the emergency department, were explained at length to the patient and understood. Please defer to my resident's note for final disposition. Medication Reconcilliation Current Medication List: was personally reviewed by me Blood Pressure Screening Patient's blood pressure: Elevated blood pressure Blood pressure disposition: Referred to PCP Impression Primary Impression: Acute diverticulitis Additional Impression: Leukocytosis Scribe Attestation The scribe's documentation has been prepared under my direction and personally reviewed by me in its entirety. I confirm that the note above accurately reflects all work, treatment, procedures, and medical decision making performed by me. Departure Information Dispostion Home / Self-Care Referrals Wong Navarrete D.O. (PCP) Patient Instructions My [facility] Problem Qualifiers Additional Impression: Leukocytosis Leukocytosis type: unspecified Qualified Codes: D72.829 - Elevated white blood cell count, unspecified
[2017-07-07] MEDS ORDERED: POTASSIUM CHLORIDE 10 MEQ TABCR PO STA (17:49)
[2017-07-07] MEDS ORDERED: METR-163 PO (18:33)
[2017-07-07] MEDS ORDERED: CPR/500 PO (18:33)
[2017-07-07] MEDS ORDERED: OXYCODONE HCL IR 5 MG TAB (IMMEDIATE RELEASE) PO STA (19:23)
[2017-07-07] MEDS ORDERED: AMITRIPTYLINE HCL 10 MG TAB PO PRN (20:00)
[2017-07-07] MEDS ORDERED: HYDROmorphone INJ 0.5 MG/0.5 ML SYR IV PRN (20:00)
[2017-07-07] MEDS ORDERED: HEPARIN SOD 5000 UNIT/0.5 ML CARP SQ SCH (20:00)
--- NOTE | 2017-07-07 20:14 | History and Physical ---
History & Physical Date & Time of Service: Jul 07, 2017 at 19:56 Chief Complaint: Illness Primary Care Physician: Wong Navarrete D.O. History of Present Illness Source: patient 71 y/o F w/Hx HTN, Diverticulitis. Pt presents with progressive lower quadrant abdominal pain, fever, nausea, vomiting and diarrhea. A CT of the abdomen was obtained in the ER revealing sigmoid and descending colonic diverticulitis. Initial labs reveal hyponatremia, hypokalemia and leukocytosis. Past Medical/Surgical History 1) Cerebral aneurysm 2) Diverticulitis - recurrent sigmoid 2014, 2015, 2016 3) HTN 4) Osteoporosis Surgical Problems: 1) Hx of appendectomy 2) Hx of diagnostic laparoscopy, CHIKA 3) Hx of hysterectomy Family History Hypertension Social History Smoking Status: Former Smoker Smokeless Tobacco Use: No Drug Use: none Marital Status: Housing status: lives alone Occupational Status: employed Immunizations History of Influenza Vaccine: No Influenza Vaccine Date: Jul 11, 2008 History of Tetanus Vaccine?: Yes Tetanus Immunization Date: Jan 04, 2009 History of Pneumococcal: Yes Pneumococcal Date: Oct 10, 2010 History of Hepatitis B Vaccine: Yes Multi-Drug Resistant Organisms History of MDRO: No Allergies Coded Allergies: No Known Allergies (Verified , 07/07/17) Home Medications Scheduled Alendronate Sodium (Alendronate Sodium), 70 MG PO WK Atenolol (Tenormin), 12.5 MG PO QAM Calcium Carbonate-Cholecalcife (Caltrate 600+D), 1 TABS PO BID Ciprofloxacin (Ciprofloxacin HCl), 1 TAB PO Q12 Hydrochlorothiazide (Hctz), 25 MG PO QAM Metronidazole (Flagyl), 500 MG PO TID Scheduled PRN Amitriptyline Hcl (Elavil), 10 MG PO HS PRN for Sleep Review of Systems Constitutional: + fever, No chills, No sweats Eyes: No worsening of vision ENT: No hearing loss Respiratory: No cough, No sputum, No wheezing Cardiovascular: No chest pain, No orthopnea, No PND Abdomen: + pain, + nausea, + vomiting, + diarrhea Musculoskeletal: No joint pain Genitourinary - Female: No dysuria, No urinary frequency, No urinary urgency Neurologic: No memory loss, No paralysis, No weakness Psychiatric: No depression symptoms Endocrine: No fatigue Hematologic / Lymphatic: No abnormal bleeding/bruising Integumentary: No rash Allergic / Immunologic: No environmental allergies Physical Exam Vital Signs Date Time Temp Pulse Resp B/P (MAP) Pulse Ox O2 Delivery O2 Flow Rate FiO2 07/07/17 19:18 72 18 156/75 96 Room Air 07/07/17 17:38 36.7 64 18 167/77 98 Room Air 07/07/17 16:39 72 18 176/78 98 Room Air 07/07/17 14:05 57 07/07/17 14:04 58 18 176/87 99 Room Air General Appearance: WD/WN Head: normocephalic Eyes: normal inspection ENT: normal ENT inspection, pharynx normal Neck: supple, no JVD Respiratory/Chest: chest non-tender, lungs clear, normal breath sounds Cardiovascular: regular rate, rhythm, no edema, no gallop Abdomen/GI: + tenderness, + pertinent finding (There is tenderness to palpation of the LLQ and less so on the R) Back: normal inspection, no CVA tenderness, no muscle spasm, normal range of motion Extremities/Musculoskelatal: normal inspection 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, no motor/sensory deficits, alert, oriented x 3 Skin: normal color Diagnostics Laboratory Results Results Past 24 Hours Test 07/07/17 13:59 07/07/17 14:50 07/07/17 15:10 Range/Units White Blood Count 14.42 4.8-10.8 K/uL Red Blood Count 5.23 4.2-5.4 M/uL Hemoglobin 16.0 12.0-16.0 g/dL Hematocrit 45.4 37-47 % Mean Corpuscular Volume 86.8 80-100 fL Mean Corpuscular Hemoglobin 30.6 25-34 pg Mean Corpuscular Hemoglobin Concent 35.2 32-36 g/dl Platelet Count 296 130-400 K/uL Mean Platelet Volume 9.5 7.4-10.4 fL Neutrophils (%) (Auto) 87.0 % Lymphocytes (%) (Auto) 7.2 % Monocytes (%) (Auto) 5.3 % Eosinophils (%) (Auto) 0.2 % Basophils (%) (Auto) 0.1 % Neutrophils # (Auto) 12.54 1.4-6.5 K/uL Lymphocytes # (Auto) 1.04 1.2-3.4 K/uL Monocytes # (Auto) 0.77 0.11-0.59 K/uL Eosinophils # (Auto) 0.03 0-0.5 K/uL Basophils # (Auto) 0.01 0-0.2 K/uL RDW Standard Deviation 42.0 36.4-46.3 fL RDW Coefficient of Variation 13.2 11.5-14.5 % Immature Granulocyte % (Auto) 0.2 % Immature Granulocyte # (Auto) 0.03 0.00-0.02 K/uL Sodium Level 134 136-145 mmol/L Potassium Level 3.1 3.5-5.1 mmol/L Chloride Level 99 98-107 mmol/L Carbon Dioxide Level 29 21-32 mmol/L Anion Gap 7.0 16.0 16-25 mmol/L Blood Urea Nitrogen 15 7-18 mg/dl Creatinine 0.89 0.60-1.20 mg/dl Est Creatinine Clear Calc Drug Dose 57.2 ml/min Estimated GFR () 75.0 Estimated GFR (Non- 64.7 BUN/Creatinine Ratio 17.2 10-20 Random Glucose 111 70-99 mg/dl Calcium Level 9.4 8.5-10.1 mg/dl Total Bilirubin 0.7 0.2-1 mg/dl Aspartate Amino Transf (AST/SGOT) 22 15-37 U/L Alanine Aminotransferase (ALT/SGPT) 22 12-78 U/L Alkaline Phosphatase 100 45-117 U/L Total Protein 8.0 6.4-8.2 gm/dl Albumin 4.1 3.4-5.0 gm/dl Globulin 3.9 2.5-4.0 gm/dl Albumin/Globulin Ratio 1.0 0.9-2 Lipase 113 73-393 U/L Bedside Hemoglobin 16.3 12.0-16.0 g/dl Bedside Hematocrit 48 37-47 % Bedside Sodium 137 135-144 mEq/L Bedside Potassium 3.2 3.3-5.0 mEq/L Bedside Chloride 98 101-112 mEq/L Bedside Total CO2 28 24-31 mEq/l Bedside Blood Urea Nitrogen 15 7-18 mg/dl Bedside Creatinine 0.9 0.6-1.3 mg/dl Bedside Glucose (other) 116 70-99 mg/dl Bedside Ionized Calcium (Yolanda) 1.12 1.12-1.32 mmol/l Diagnostic Radiology CT abdomen: 1. Findings consistent with acute proximal to mid sigmoid as well as descending colonic diverticulitis/colitis. 2. No evidence for abscess collection or obstruction. 3. Moderate pericolonic infiltrative change. Impression Assessment and Plan 71 y/o F w/Hx HTN, Diverticulitis. Pt presents with progressive lower quadrant abdominal pain, fever, nausea, vomiting and diarrhea. A CT of the abdomen was obtained in the ER revealing sigmoid and descending colonic diverticulitis. Initial labs reveal hyponatremia, hypokalemia and leukocytosis. 1) Diverticulitis - The pt has required multiple doses of IV narcotics in the ER , was febrile on arrival, and is unlikely to tolerate a PO antibiotic regimen at present. She will be started on IV Zosyn and provided with IVF and adequate pain control. Surgergical consultation will be considered with evidence of complication or clinical worsening. 2) Hyponatremia and hypokalemia - clonically hypovolemic - receiving IVF - will recheck BMP AM 3) HTN - her HCTZ is held owing to electrolyte abnormalities - we will cont Atenolol Full code - SCDs due to history of aneurysm Total time for this admit including review of labs, meds, imaging - discussion with pt and ER attending - 33 min VTE Prophylaxis VTE Risk Assessment Done? Y/N: Yes Risk Level: Low
[2017-07-07] MEDS ORDERED: IV FLUIDS COMPLETED PRN (21:00)
[2017-07-07 21:32] VITALS: BP 122/71; PULSE 66; TEMP 36.5; O2SAT 97; Ht 162.6 cm; Wt 76.5 kg
[2017-07-07 21:50] VITALS: BP 122/71; PULSE 66; TEMP 36.5; O2SAT 97
[2017-07-07] MEDS ORDERED: PIPERACILL/TAZOBAC CONSULT ACTIVE PRN (22:00)
[2017-07-07] MEDS: POTASSIUM CHLR 10 MEQ / WTR 10 MEQ in PREMIXED WATER 100 ML IV SCH ×2 (22:10→23:41)
[2017-07-07] MEDS: D5NSS + 20MEQ KCL 1,000 ML IV SCH (22:10)
[2017-07-07] MEDS ORDERED: MAGNESIUM SULFATE 1GM / D5W 1 GM in PREMIXED IN D5W 100 ML IV ONE (23:00)
[2017-07-07 23:29] VITALS: BP 108/65; PULSE 61; TEMP 36.6; O2SAT 93
[2017-07-08] MEDS ORDERED: PIPERACILL/TAZOBAC IV 3.375 GM in DEXTROSE 5% 100ML 100 ML IV SCH ×2
[2017-07-08] MEDS ORDERED: PIPERACILL/TAZOBAC IV 3.375 GM in DEXTROSE 5% 100ML IV ONE ×2
[2017-07-08] MEDS ORDERED: METRONIDAZOLE / NSS 500 MG in PREMIXED NSS 100 ML IV SCH (02:00)
[2017-07-08 02:34] LABS: URINE APPEARANCE CLEAR (CLEAR); URINE BILIRUBIN NEG (NEG); URINE COLOR DK YELLOW; URINE EPITHELIAL CELL AUTO 20-30 /lpf (0-5); URINE NITRITE NEG (NEG); URINE PH 5.5 (4.5-7.5); URINE SPECIFIC GRAVITY > 1.045 (1.000-1.030); UROBILINOGEN NEG (NEG); ZZUR CULT IF INDIC CLEAN CATCH NO
[2017-07-08 02:47] LABS: MANUAL MICROSCOPIC REQUIRED? NO; REVIEW REQ? NO
[2017-07-08] MEDS: PIPERACILL/TAZOBAC IV 3.375 GM in DEXTROSE 5% 100ML IV SCH ×3 (05:46→22:03)
[2017-07-08] MEDS ORDERED: CIPROFLOXACIN / D5W 400 MG in PREMIXED IN D5W 200 ML IV SCH (07:00)
--- NOTE | 2017-07-08 07:05 | Family Medicine Progress Note ---
Progress Note Date of Service Jul 08, 2017. Subjective Pt evaluation today including: conversation w/ patient, physical exam, chart review, lab review, review of studies Found patient resting comfortably in bed, then later ambulating to the bathroom. Says that her stabbing abdominal pain has improved since admit, down to 3/10 on pain scale, still left > right. Had some overnight nausea but no emesis. Says she's been able to keep down pills thus far. No other acute c/o. Constitutional: No fever, No chills Respiratory: No cough, No shortness of breath Cardiovascular: No chest pain, No edema Abdomen: + pain, + nausea, No vomiting, No diarrhea Medications Current Inpatient Medications Medications (Trade) Dose Ordered Sig/Rishabh Route Start Time Stop Time Status Last Admin Dose Admin Ioversol (Optiray 320) 125 ml UD PRN IV 07/07/17 14:30 07/11/17 14:29 Amitriptyline HCl (Elavil Tab) 10 mg HS PRN PO 07/07/17 20:00 08/06/17 19:59 07/08/17 00:48 10 MG Atenolol (Tenormin Tab) 12.5 mg QAM PO 07/08/17 09:00 08/07/17 08:59 07/08/17 07:49 12.5 MG Hydromorphone HCl (Dilaudid Inj) 0.5 mg Q3H PRN IV 07/07/17 20:00 07/21/17 19:59 07/07/17 22:42 0.5 MG Potassium Chloride/Dextrose/ Sod Cl 1,000 ml @ 100 mls/hr Q10H IV 07/07/17 22:00 07/08/17 17:59 07/07/17 22:10 100 MLS/HR Miscellaneous (Iv Fluids Completed) 1 ea PRN PRN N/A 07/07/17 21:00 07/07/18 20:59 Piperacillin Sod/ Tazobactam Sod 3.375 gm/Dextrose 115 ml @ 28.75 mls/ hr Q8H IV 07/08/17 06:00 07/18/17 05:59 07/08/17 05:46 28.75 MLS/HR Piperacillin Sod/ Tazobactam Sod (Consult) 1 ea UD PRN N/A 07/07/17 22:00 08/06/17 21:59 Objective Vital Signs Date Time Temp Pulse Resp B/P (MAP) Pulse Ox O2 Delivery O2 Flow Rate FiO2 07/08/17 07:46 37.0 66 16 117/75 (89) 93 Room Air 07/07/17 23:48 Room Air 07/07/17 23:29 36.6 61 16 108/65 (79) 93 Room Air 07/07/17 21:50 36.5 66 16 122/71 (88) 97 Room Air 07/07/17 21:32 36.5 66 16 122/71 97 Room Air 07/07/17 21:07 70 18 129/65 95 Room Air 07/07/17 19:18 72 18 156/75 96 Room Air 07/07/17 17:38 36.7 64 18 167/77 98 Room Air 07/07/17 16:39 72 18 176/78 98 Room Air 07/07/17 14:05 57 07/07/17 14:04 58 18 176/87 99 Room Air Physical Exam General Appearance: no apparent distress Respiratory/Chest: lungs clear, normal breath sounds, no respiratory distress Cardiovascular: regular rate, rhythm, no murmur Abdomen: normal bowel sounds, soft, + tenderness (LLQ > RLQ. No ttp in upper quadrants. Non-peritoneal throughout. Non-distended.) Extremities: normal range of motion, no pedal edema, no calf tenderness Laboratory Results 07/08/17 07:09 07/08/17 07:09 Test 07/07/17 13:59 07/07/17 14:50 07/07/17 15:10 07/08/17 02:17 Immature Granulocyte % (Auto) 0.2 % White Blood Count 14.42 K/uL (4.8-10.8) Red Blood Count 5.23 M/uL (4.2-5.4) Hemoglobin 16.0 g/dL (12.0-16.0) Hematocrit 45.4 % (37-47) Mean Corpuscular Volume 86.8 fL (80-100) Mean Corpuscular Hemoglobin 30.6 pg (25-34) Mean Corpuscular Hemoglobin Concent 35.2 g/dl (32-36) Platelet Count 296 K/uL (130-400) Mean Platelet Volume 9.5 fL (7.4-10.4) Neutrophils (%) (Auto) 87.0 % Lymphocytes (%) (Auto) 7.2 % Monocytes (%) (Auto) 5.3 % Eosinophils (%) (Auto) 0.2 % Basophils (%) (Auto) 0.1 % Neutrophils # (Auto) 12.54 K/uL (1.4-6.5) Lymphocytes # (Auto) 1.04 K/uL (1.2-3.4) Monocytes # (Auto) 0.77 K/uL (0.11-0.59) Eosinophils # (Auto) 0.03 K/uL (0-0.5) Basophils # (Auto) 0.01 K/uL (0-0.2) Immature Granulocyte # (Auto) 0.03 K/uL (0.00-0.02) Total Bilirubin 0.7 mg/dl (0.2-1) Aspartate Amino Transf (AST/SGOT) 22 U/L (15-37) Alanine Aminotransferase (ALT/SGPT) 22 U/L (12-78) Alkaline Phosphatase 100 U/L (45-117) Total Protein 8.0 gm/dl (6.4-8.2) Albumin 4.1 gm/dl (3.4-5.0) Globulin 3.9 gm/dl (2.5-4.0) Albumin/Globulin Ratio 1.0 (0.9-2) Lipase 113 U/L (73-393) Bedside Hemoglobin 16.3 g/dl (12.0-16.0) Bedside Hematocrit 48 % (37-47) Bedside Sodium 137 mEq/L (135-144) Bedside Potassium 3.2 mEq/L (3.3-5.0) Bedside Chloride 98 mEq/L (101-112) Bedside Total CO2 28 mEq/l (24-31) Bedside Blood Urea Nitrogen 15 mg/dl (7-18) Bedside Creatinine 0.9 mg/dl (0.6-1.3) Bedside Glucose (other) 116 mg/dl (70-99) Bedside Ionized Calcium (Yolanda) 1.12 mmol/l (1.12-1.32) Urine Color DK YELLOW Urine Appearance CLEAR (CLEAR) Urine pH 5.5 (4.5-7.5) Urine Specific [place] > 1.045 (1.000-1.030) Urine Protein NEG (NEG) Urine Glucose (UA) NEG (NEG) Urine Ketones NEG (NEG) Urine Occult Blood TRACE (NEG) Urine Nitrite NEG (NEG) Urine Bilirubin NEG (NEG) Urine Urobilinogen NEG (NEG) Urine Leukocyte Esterase MODERATE (NEG) Urine WBC (Auto) 5-10 /hpf (0-5) Urine RBC (Auto) 5-10 /hpf (0-4) Urine Hyaline Casts (Auto) 0 /lpf (0-5) Urine Epithelial Cells (Auto) 20-30 /lpf (0-5) Urine Bacteria (Auto) NEG (NEG) Test 07/08/17 07:09 Red Blood Count 4.44 M/uL (4.2-5.4) Mean Corpuscular Volume 87.2 fL (80-100) Mean Corpuscular Hemoglobin 29.3 pg (25-34) Mean Corpuscular Hemoglobin Concent 33.6 g/dl (32-36) RDW Standard Deviation 42.3 fL (36.4-46.3) RDW Coefficient of Variation 13.3 % (11.5-14.5) Mean Platelet Volume 9.5 fL (7.4-10.4) Anion Gap 6.0 mmol/L (3-11) Est Creatinine Clear Calc Drug Dose 61.4 ml/min Estimated GFR () 81.7 Estimated GFR (Non- 70.4 BUN/Creatinine Ratio 11.6 (10-20) Calcium Level 7.8 mg/dl (8.5-10.1) Assessment and Plan Ms. Noe is a 71 yo female with PMH of diverticulitis (multiple episodes), HTN, and cerebral aneurysm who was admitted on [id number] for diverticulitis and related pain control. Diverticulitis & related pain control - CT a/p without contrast: Consistent with acute proximal to mid sigmoid as well as descending colonic diverticulitis/colitis. - Pain control on admit required multiple doses of IV narcotics. Most recently controlled with tylenol. - 06Dec single dose of cipro IV and flagyl IV given, then started on Zosyn 3.375 grams IV q8h. Plan for transition to Augmentin 500 mg PO q8h x 7 days if continues to improve and tolerate PO. Advancing diet this evening (Dec). Hyponatremia - On admit 134. Began IVF, corrected. Monitoring. Hypokalemia - On admit 3.1. Replaced with PO and IVF KCl, improving. Monitoring. Hypertension - Held home HCTZ due to admit electrolyte abnormalities. - Continued home atenolol 12.5 q AM. Depression - On home amitriptyline 10 q HS. Code status: Full DVT prophy: SCDs (patient has history of cerebral aneurysm) Disposition: Admitted overnight. Resident Physician Supervision Note: I was present with the resident during the history and exam. I discussed the case with the resident and agree with the findings and plan as documented in the note. Any exceptions or clarifications are listed here: Upon my exam, the patient reports that she feels better than admission but still notes pain in the left lower quadrant. Upon palpation, she has tenderness but not rebound in the LLQ. She remains afebile with a normal WBC. Continue the same overnight, consider change to PO ABX if she continues to improve. Documented By: Wong Navarrete Resident Tracking Resident Involvement: Resident Care Provided Care Provided: Adult Hospital Medicine (inpt rounds)
[2017-07-08 07:46] VITALS: BP 117/75; PULSE 66; TEMP 37; O2SAT 93
[2017-07-08] MEDS: D5NSS + 20MEQ KCL 1,000 ML IV SCH (08:00)
[2017-07-08 08:16] LABS: HEMATOCRIT 38.7 % (37-47); MEAN CELL VOLUME 87.2 fL (80-100); MEAN CORPUSCULAR HEMOGLOBIN 29.3 pg (25-34); MEAN CORPUSCULAR HGB CONC 33.6 g/dl (32-36); MEAN PLATELET VOLUME 9.5 fL (7.4-10.4); PLATELET COUNT 214 K/uL (130-400); RED BLOOD COUNT 4.44 M/uL (4.2-5.4); WHITE BLOOD COUNT 6.09 K/uL (4.8-10.8)
[2017-07-08 08:20] LABS: BUN/CREATININE RATIO 11.6 (10-20); CALCIUM 7.8 mg/dl (8.5-10.1); CREATININE 0.83 mg/dl (0.60-1.20); POTASSIUM 3.4 mmol/L (3.5-5.1)
[2017-07-08] MEDS ORDERED: NURSING VERBAL MED ORDER ONE (11:45)
[2017-07-08] MEDS ORDERED: ACETAMINOPHEN 325 MG TAB PO PRN (12:15)
[2017-07-08 15:00] VITALS: BP 137/80; PULSE 64; TEMP 36.5; O2SAT 96
[2017-07-08 19:27] VITALS: O2SAT 96
[2017-07-08 23:31] VITALS: BP 131/60; PULSE 69; TEMP 36.6; O2SAT 95
[2017-07-09] MEDS: AMOXICILLIN/CLAVULANATE TAB 500 MG TAB PO SCH ×2 (07:31→12:04)
[2017-07-09 07:55] VITALS: BP 112/70; PULSE 58; TEMP 36.4; O2SAT 94
--- NOTE | 2017-07-09 08:34 | Medical Student: [facility] ---
Med Student Progress Note Date of Service Jul 09, 2017. Subjective Pt evaluation today including: conversation w/ patient, physical exam, chart review, lab review Pt is a 72 yo F with a hx of diverticulitis who presents diverticulitis. She had multiple episodes of diarrhea and severe lower quadrant abdominal pain prior to arriving at the ED. She is feeling better now and the pain in the lower quadrants have significantly improved. She had several episodes of diarrhea after having a full liquid diet which consisted of coffee, juice, soup , and some ice cream. After the diarrhea, she felt bloated and some pain higher up in the abdominal area compared to where she has been having pain earlier. IVF discontinued last night Plan was originally to have patient attempt regular diet for breakfast but patient will see how she feels and decide. Also spent some time talking about high fiber diet and hydration. Review of Systems Constitutional: No fever, No chills Eyes: No worsening of vision, No eye pain ENT: No hearing loss Respiratory: No cough, No sputum Cardiac: No chest pain Abdomen: + pain, + diarrhea, No nausea, No vomiting Musculoskeletal: No joint pain Female : No dysuria, No urinary frequency Neurologic: No memory loss Psychiatric: No depression symptoms Heme: No abnormal bleeding/bruising Endo: No fatigue Skin: No rash Objective Vital Signs Date Time Temp Pulse Resp B/P (MAP) Pulse Ox O2 Delivery O2 Flow Rate FiO2 07/08/17 23:31 36.6 69 15 131/60 (83) 95 Room Air 07/08/17 22:15 Room Air 07/08/17 19:27 96 Room Air 07/08/17 17:20 Room Air 07/08/17 15:00 36.5 64 20 137/80 (99) 96 Room Air 07/08/17 09:08 Room Air Physical Exam General Appearance: WD/WN, no apparent distress Eyes: bilateral eyes normal inspection, bilateral eyes PERRL, bilateral eyes EOMI ENT: normal ENT inspection, hearing grossly normal Neck: supple, no adenopathy, thyroid normal Respiratory/Chest: chest non-tender, lungs clear, normal breath sounds, no respiratory distress Cardiovascular: regular rate, rhythm, no edema, no gallop, no JVD, no murmur Abdomen: soft, + abnormal bowel sounds (hyperactive), + tenderness (RLQ > LLQ but much improvement from yesterday morning ) Extremities: non-tender, normal inspection, no pedal edema Neurologic/Psychiatric: mounting inspector II-XII nml as tested, no motor/sensory deficits, alert, normal mood/affect, oriented x 3 Skin: normal color, warm/dry Lymphatic: no adenopathy Medications Current Inpatient Medications Medications (Trade) Dose Ordered Sig/Rishabh Route Start Time Stop Time Status Last Admin Dose Admin Ioversol (Optiray 320) 125 ml UD PRN IV 07/07/17 14:30 07/11/17 14:29 Amitriptyline HCl (Elavil Tab) 10 mg HS PRN PO 07/07/17 20:00 08/06/17 19:59 07/08/17 00:48 10 MG Atenolol (Tenormin Tab) 12.5 mg QAM PO 07/08/17 09:00 08/07/17 08:59 07/09/17 07:30 12.5 MG Hydromorphone HCl (Dilaudid Inj) 0.5 mg Q3H PRN IV 07/07/17 20:00 07/21/17 19:59 07/07/17 22:42 0.5 MG Miscellaneous (Iv Fluids Completed) 1 ea PRN PRN N/A 07/07/17 21:00 07/07/18 20:59 07/08/17 20:01 1 EA Acetaminophen (Tylenol Tab) 325 mg Q4H PRN PO 07/08/17 12:15 08/07/17 12:14 07/08/17 14:17 325 MG Amoxicillin/ Clavulanate Potassium (Augmentin Tab) 500 mg TIDM PO 07/09/17 08:30 07/19/17 08:29 07/09/17 07:31 500 MG Assessment and Plan Assessment and Plan: Pt is a 72 yo F who presents with diverticulitis. Her lower quadrant pain is much improved and now she's been experiencing some pain higher up around the mid -abdomen after having diarrhea last night. Bowel sounds were hyperactive on physical examination. Otherwise the patient had no complaints. Diverticulitis - CT showed diverticulitis in sigmoid and descending colon - Pain controlled with Tylenol - Received Ciprofloxacin and Flagyl in ED. Received Zosyn afterwards. Has been transitioned to Augmentin 5oomg PO q 8H for 7 days Hyponatremia - 134 on admission and resolved with IVF administration. Continue to monitor. 136 yesterday. Hyponkalemia - 3.1 on admission, improving after KCl administration. Continue to monitor. 3.4 yesterday. Hypertension - Home HTCZ held due to electrolyte abnormalities - Received atenolol 12.5 mg qAM this morning. Depression - Amitriptyline 10mg HS PRN VTE ptophylaxis - SCDs
--- NOTE | 2017-07-09 08:38 | Family Medicine Progress Note ---
Progress Note Date of Service Jul 09, 2017. Medications Current Inpatient Medications Medications (Trade) Dose Ordered Sig/Rishabh Route Start Time Stop Time Status Last Admin Dose Admin Ioversol (Optiray 320) 125 ml UD PRN IV 07/07/17 14:30 07/11/17 14:29 Amitriptyline HCl (Elavil Tab) 10 mg HS PRN PO 07/07/17 20:00 08/06/17 19:59 07/08/17 00:48 10 MG Atenolol (Tenormin Tab) 12.5 mg QAM PO 07/08/17 09:00 08/07/17 08:59 07/09/17 07:30 12.5 MG Hydromorphone HCl (Dilaudid Inj) 0.5 mg Q3H PRN IV 07/07/17 20:00 07/21/17 19:59 07/07/17 22:42 0.5 MG Miscellaneous (Iv Fluids Completed) 1 ea PRN PRN N/A 07/07/17 21:00 07/07/18 20:59 07/08/17 20:01 1 EA Acetaminophen (Tylenol Tab) 325 mg Q4H PRN PO 07/08/17 12:15 08/07/17 12:14 07/08/17 14:17 325 MG Amoxicillin/ Clavulanate Potassium (Augmentin Tab) 500 mg TIDM PO 07/09/17 08:30 07/19/17 08:29 07/09/17 07:31 500 MG Objective Vital Signs Date Time Temp Pulse Resp B/P (MAP) Pulse Ox O2 Delivery O2 Flow Rate FiO2 07/09/17 07:55 36.4 58 14 112/70 (84) 94 Room Air 07/09/17 07:30 Room Air 07/08/17 23:31 36.6 69 15 131/60 (83) 95 Room Air 07/08/17 22:15 Room Air 07/08/17 19:27 96 Room Air 07/08/17 17:20 Room Air 07/08/17 15:00 36.5 64 20 137/80 (99) 96 Room Air 07/08/17 09:08 Room Air Resident Tracking Resident Involvement: Resident Care Provided Care Provided: Adult Hospital Medicine (inpt rounds)
[2017-07-09 08:44] VITALS: O2SAT 94
[2017-07-09 11:50] VITALS: BP 118/70; PULSE 62; TEMP 36.6; O2SAT 97
--- NOTE | 2017-07-09 13:14 | Discharge Instructions ---
Discharge Instructions Date of Service Jul 09, 2017. Admission Reason for Admission: Acute Diverticulitis Discharge Discharge Diagnosis / Problem: Diverticulitis Discharge Goals Goal(s): Decrease discomfort, Learn about illness Activity Recommendations Activity Limitations: resume your previous activity . Instructions / Follow-Up Instructions / Follow-Up During this hospitalization you were diagnosed with diverticulitis (an infection of the diverticula in your colon that were previously there). You were first treated with IV antibiotics, then transitioned to pill antibiotics. As we discussed, there are a variety of resources out there to learn more about diverticular disease. Please talk with your doctor on your follow up visit for further information and sources of reputable information. You are being prescribed an antibiotic called Augmentin to continue to treat the infection & inflammation. Please take this for a total of seven days. Please follow up with your doctor, or our [facility], in one week for re -evaluation to make sure your symptoms have resolved and for good continuity of care. You can call our clinic at [phone] to schedule that appointment. Please go to the nearest emergency department (or call 911) if you develop new severe abdominal pains, fevers, bloody diarrhea, or with any other acute concerns. Current Hospital Diet Patient's current hospital diet: Regular Diet Discharge Diet Recommended Diet: Regular Diet Procedures Procedures Performed: Chest x-ray CT scan of the abdomen and pelvis Pending Studies Studies pending at discharge: no Medical Emergencies . Who to Call and When: Medical Emergencies: If at any time you feel your situation is an emergency, please call 911 immediately. . Non-Emergent Contact Non-Emergency issues call your: Primary Care Provider . . "Provider Documentation" section prepared by Roosevelt Aguilera. . VTE Core Measure Inpt VTE Proph given/why not?: SCD's
--- NOTE | 2017-07-09 13:33 | Discharge Summary ---
Discharge Summary Date of Service Jul 09, 2017. Discharge Summary Admission Date: Jul 07, 2017 at 19:51 Discharge Date: Jul 09, 2017 Discharge Disposition: Home Principal Diagnosis: Diverticulitis Problems/Secondary Diagnoses: - Hyponatremia, resolved - Hyperkalemia, resolved Immunizations: Have You Had Influenza Vaccine: No Influenza Vaccine Date: Jul 11, 2008 History of Tetanus Vaccine?: Yes Tetanus Immunization Date: Jan 04, 2009 History of Pneumococcal: Yes Pneumococcal Date: Oct 10, 2010 History of Hepatitis B Vaccine: Yes Procedures: 07Jul2017 Chest x-ray one view portable The cardiac and mediastinal contours are normal. There is no evidence of focal pulmonary consolidation. There is no evidence of failure. No pleural effusions are visualized. There is an old right sixth rib fracture. There is no evidence of free intraperitoneal air. IMPRESSION: No active disease in the chest. 07Jul2017 CT abdomen/pelvis with IV contrast only IMPRESSION: 1. Findings consistent with acute proximal to mid sigmoid as well as descending colonic diverticulitis/colitis. 2. No evidence for abscess collection or obstruction. 3. Moderate pericolonic infiltrative change. Consultations: None Discharge Exam Review of Systems: Constitutional: No fever, No chills Respiratory: No cough, No shortness of breath Cardiovascular: No chest pain, No edema Abdomen: + pain, + nausea (very minimal), No vomiting, No diarrhea ( positive loose stools) Genitourinary - Female: No dysuria, No hematuria Neurologic: No weakness Physical Exam: General Appearance: WD/WN, no apparent distress Respiratory/Chest: lungs clear, normal breath sounds, no respiratory distress Cardiovascular: regular rate, rhythm, no murmur Abdomen / GI: normal bowel sounds, soft, + tenderness (improved LLQ>RLQ tender to palpation, less so in (B)UQ. non-tender to percussion, non-distended) Extremities: normal inspection, no calf tenderness, no pedal edema, + pertinent finding (normal gait ) Neurologic/Psychiatric: alert, normal mood/affect Hospital Course HPI at time on admission on 07Jul2017 Jul 07, 2017 at 19:56 Chief Complaint: Illness Primary Care Physician: Wong Navarrete D.O. 72 y/o F w/Hx HTN, Diverticulitis. Pt presents with progressive lower quadrant abdominal pain, fever, nausea, vomiting and diarrhea. A CT of the abdomen was obtained in the ER revealing sigmoid and descending colonic diverticulitis. Initial labs reveal hyponatremia, hypokalemia and leukocytosis. Discharge summary on 09Jul2017 Ms. Noe is a 72 yo female with PMH of diverticulitis (multiple episodes), HTN, and cerebral aneurysm who was admitted on [id number] for diverticulitis and related pain control. Diverticulitis & related pain control - CT a/p without contrast: Consistent with acute proximal to mid sigmoid as well as descending colonic diverticulitis/colitis. - Pain control on admit required multiple doses of IV narcotics. Well- controlled with tylenol as an inpatient. - 06Dec single dose of cipro IV and flagyl IV given, then started on Zosyn 3.375 grams IV q8h. Transitioned to Augmentin 500 mg PO q8h x 7 days beginning with planned seven day course. - Advanced diet as tolerated with patient guidance on foods to help with overall diverticular disease. Hyponatremia - On admit 134. Began IVF, corrected. Hypokalemia - On admit 3.1. Replaced with PO and IVF KCl, corrected. Hypertension - Held home HCTZ due to admit electrolyte abnormalities. Restarted on discharge. - Continued home atenolol 12.5 q AM. Depression - On home amitriptyline 10 q HS. Total Time Spent: Less than 30 minutes This includes examination of the patient, discharge planning, medication reconciliation, and communication with other providers. Discharge Instructions Please refer to the electronic Patient Visit Report (Discharge Instructions) for additional information. Follow-Up In one week with her PCM Additional Copies To Wong Navarrete D.O.
[2017-07-09] MEDS ORDERED: AMOX1TAB42 PO (13:35)
[2017-07-09 13:58] VITALS: BP 118/70; PULSE 62; TEMP 36.6; O2SAT 97
== END 2017-07-09 14:42 | disposition home or self-care (01) ==
LOC: EDBD 13:51 → C.EDC 13:52 → C.MSN 19:51 → CANBEDREQ 20:09 → ENRESERV 20:40
PROVIDERS: ADMIT Internal Medicine; ATTEND Family Medicine
DX: K57.32 Diverticulitis of large intestine without perforation or abscess without bleeding (principal); D72.829 Elevated white blood cell count, unspecified; E87.6 Hypokalemia; E87.1 Hypo-osmolality and hyponatremia; I10 Essential (primary) hypertension; M81.0 Age-related osteoporosis without current pathological fracture; F32.9 Major depressive disorder, single episode, unspecified; Z90.710 Acquired absence of both cervix and uterus; Z90.89 Acquired absence of other organs; Z90.49 Acquired absence of other specified parts of digestive tract; Z82.49 Family history of ischemic heart disease and other diseases of the circulatory system; Z87.891 Personal history of nicotine dependence

== ENCOUNTER 2021-10-05 15:39 | Inpatient (IN) ==
[2021-10-05] MEDS ORDERED: ONDANSETRON INJ 2 MG/ML 2 ML VIAL IV STA (15:59)
[2021-10-05] MEDS ORDERED: MoRPHine SULFATE 4 MG/ML 1 ML CARP\\VIAL IV STA (15:59)
[2021-10-05] MEDS ORDERED: SODIUM CHLORIDE 0.9% 1000ML 1,000 ML IV SCH (16:00)
--- NOTE | 2021-10-05 16:05 | Emergency Department Note ---
Impression & Plan SBO (small bowel obstruction), Nausea & vomiting, Hypokalemia ED Provider Note Provider: Leon Jernigan MD DATE OF SERVICE: 10/05/2021 CHIEF COMPLAINT: Abdominal pain, nausea vomiting diarrhea HISTORY OF PRESENT ILLNESS: Patient is a 76-year-old female past medical history of hypertension and diverticulitis presenting here today reporting just under 24 hours of persistent and recurrent nonbloody nausea/vomiting and diarrhea. Reports some diffuse lower and mid abdominal pain with some radiation to the back. Reports some chills at times and subjective fever. Patient denies URI symptoms, chest pain, shortness of breath. Patient has felt a bit lightheaded at time but denies any trauma. Patient denies sick contacts or suspect food intake. Patient states that she has been able to keep down significant liquids or food today. Patient denies it feels like prior episode of diverticulitis in the past. Patient does not take any significant GI medications during this time to help with her symptoms. Patient denies heartburn. Patient reports vaccinated and boosted for Covid and negative home Covid test today. REVIEW OF SYSTEMS: A total of 10 review of systems was obtained and negative except as stated above in the HPI. PAST MEDICAL HISTORY: As noted above MEDICATIONS: Reviewed home medications with the patient SOCIAL HISTORY: Non-smoker, lives at home with dog PHYSICAL EXAM: GENERAL: alert and oriented in no acute distress on stretcher Head: normocephalic and atraumatic EYES: No injection, discharge or icterus. NECK: Trachea midline. ENT: Mucous membranes pink and moist. LUNGS: Airway patent. No retractions. Breath sounds clear HEART: Regular rate and rhythm. No chest wall tenderness ABDOMEN: Soft with some mild to moderate diffuse abdominal tenderness. SKIN: Acyanotic, warm, dry, without rashes EXTREMITIES: Without swelling, tenderness or deformity NEUROLOGICAL: No focal deficits. No aphasia. No facial droop or slurred speech. Ambulatory. EK bpm normal sinus rhythm without PVC or PAC. No acute ST segment elevation with some nonspecific T wave changes. Your interprets a QTC of 542 however these are some subtle U waves vs artifact this is detecting. CONTINUOUS CARDIAC MONITORING: was ordered and showed a heart rate of 70s-100s bpm in normal sinus rhythm to sinus tachycardia Patient's laboratory studies and imaging reviewed. Differential includes Gastroenteritis, food borne illness, infections, appendicitis, diverticulitis, inflammatory bowel disease, obstruction, GI bleed, biliary pathology, volvulus, as well as other pathologies. IMPRESSION/MEDICAL DECISION MAKING: Patient with some mild diffuse abdominal tenderness and significant nausea vomiting and diarrhea. Nonbloody by report. Patient reports some lightheadedness likely related to decreased intake and her GI losses. Patient is not hypoxic, febrile, tachycardic, or hypotensive on arrival though she has been taking her home medications includes a beta-oli. Patient without significant focal neurological deficit and doubt this represents CVA. She denies any chest pain or shortness of breath and doubt this represents ACS or PE. Basic labs will be obtained as well as CT the abdomen pelvis given her history of diverticulitis symptoms of discomfort here. Doubt this represents GI bleed given her lack of blood. Stool testing was ordered. Given some IV fluid, antiemetics, and pain medication for symptomatic control. Blood work without any significant anemia or leukocytosis. Borderline hypokalemia with potassium of 3.4. No significant hyponatremia. Magnesium borderline at 1.7. No significant transaminitis or elevated bilirubin. No lipase elevation. TSH within normal limits. Given some IV magnesium and potassium supplementation. Troponin not elevated. CT the abdomen pelvis per radiology radiology report questions small bowel obstruction but no acute diverticulitis. Patient reassessment states her nausea is resolved but she still having some bloating and mild abdominal pain but was feeling overall better. Patient is out of balance to get here but has had multiple diarrheal movements over the past 24 hours. Reports history of bowel obstruction in the past and multiple abdominal surgeries in the distant past. Discussed with [facility] surgery the CT results and case series of SBO treatment at this time and medical admission. Hospitalist contacted. Patient patient somewhat hesitant on NG tubing placement however went to the bathroom and urinated but no bowel movement became nauseous and a bit lightheaded. Some additional IV fluid ordered and given her recurrent nausea discussed with her and will proceed with attempted NG tube placement. Difficulty with this even with some Ativan for assistance and the NG curled into the esophagus. Discussed with hospitalist physician railway yard assistant that I recommend we let the patient rest for a short period before reattempting NG placement as the patient was having distress from the se veral attempts thus far. DIAGNOSIS: Small bowel obstruction, Nausea and vomiting, lightheaded DISPOSITION: Hospitalist will evaluate Patient was agreeable with this plan. Past Med/Surg History Medical History Abdominal pain Acute diverticulitis Influenza A Near syncope Syncope and collapse Surgical History Hx of appendectomy Hx of hysterectomy Family History Other Family history non-contributory Social History Smoking Status: Never smoker Tobacco Type: Cigarettes Preferred Language: Welsh marital status: current occupational status: retired Feels Safe at Home: Yes Allergies Allergies Allergy/AdvReac Type Severity Reaction Status Date / Time No Known Allergies Allergy Verified 10/05/21 16:15 Home Meds Home Medications Medication Instructions Recorded Confirmed alendronate 70 mg tablet 70 mg PO MAGANA@0800 07/09/19 10/05/21 amitriptyline 10 mg tablet 10 mg PO HS 07/09/19 10/05/21 atenolol 25 mg tablet 12.5 mg PO QAM 07/09/19 10/05/21 calcium carbonate 600 mg-vitamin 1 cap PO BID 07/09/19 10/05/21 D3 5 mcg (200 unit) capsule (Calcium 600 + D(3)) hydrochlorothiazide 25 mg tablet 25 mg PO QAM 07/09/19 10/05/21 ibuprofen 200 mg tablet (Advil) 400 mg PO Q6H PRN 02/16/21 10/05/21 aspirin 325 mg tablet,delayed 325 mg PO DAILY 10/05/21 10/05/21 release Results & Data (ED) Vital Signs Vital Signs - 24 hr 10/05/21 15:40 10/05/21 15:59 10/05/21 16:42 Temperature 35.6 C L Temperature Source Temporal Artery Scan Pulse Rate 85 Pulse Rate [Apical] 91 H Pulse Rhythm [Apical] Respiratory Rate 16 18 Respiratory Effort / Characteristics Respiratory Depth Blood Pressure 118/83 Blood Pressure [Right Arm] 148/65 H Blood Pressure Mean 94 Blood Pressure Mean [Right Arm] 92 Blood Pressure Position [Right Arm] Pulse Oximetry 96 93 Oxygen Delivery Method Room Air Room Air Room Air Sepsis Recent Fever Within 48 Hours No Sepsis New/Unexplained Change in Mental Status N/A Sepsis Action Taken by Nursing No Action Required 10/05/21 17:45 10/05/21 19:00 Temperature Temperature Source Pulse Rate Pulse Rate [Apical] 92 H 94 H Pulse Rhythm [Apical] Regular Respiratory Rate 18 18 Respiratory Effort / Characteristics Non-Labored Respiratory Depth Normal Blood Pressure Blood Pressure [Right Arm] 152/74 H 145/74 H Blood Pressure Mean Blood Pressure Mean [Right Arm] 100 97 Blood Pressure Position [Right Arm] Sitting Pulse Oximetry 96 94 Oxygen Delivery Method Room Air Room Air Sepsis Recent Fever Within 48 Hours Sepsis New/Unexplained Change in Mental Status Sepsis Action Taken by Nursing Laboratory Data Result diagrams: 10/05/21 16:00 10/05/21 16:00 Lab Results 10/05/21 10/05/21 10/05/21 Range/Units 16:00 16:00 16:00 WBC 8.06 (4.8-10.8) K/uL RBC 5.03 (4.2-5.4) M/uL Hgb 15.3 (12.0-16.0) g/dL Hct 44.2 (37-47) % MCV 87.9 (80-100) fL MCH 30.4 (25-34) pg MCHC 34.6 (32-36) g/dL RDW Std Deviation 42.3 (36.4-46.3) fL RDW Coeff of Javier 13.2 (11.5-14.5) % Plt Count 253 (130-400) K/uL MPV 9.4 (7.4-10.4) fL Immature Gran % (Auto) 0.1 % Neut % (Auto) 91.2 % Lymph % (Auto) 4.0 % [place] % (Auto) 4.1 % Eos % (Auto) 0.5 % Baso % (Auto) 0.1 % Neut # (Auto) 7.35 H (1.4-6.5) K/uL Lymph # (Auto) 0.32 L (1.2-3.4) K/uL [place] # (Auto) 0.33 (0.11-0.59) K/uL Eos # (Auto) 0.04 (0-0.5) K/uL Baso # (Auto) 0.01 (0-0.2) K/uL Immature Gran # (Auto) 0.01 (0.00-0.02) K/uL Sodium 137 (136-145) mmol/L Potassium 3.4 L (3.5-5.1) mmol/L Chloride 100 (98-107) mmol/L Carbon Dioxide 27 (21-32) mmol/L Anion Gap 10 (3-11) BUN 18 (6-23) mg/dl Creatinine 0.94 (0.6-1.2) mg/dl Est Cr Clr Drug Dosing Not Reportable Est GFR ( Amer) 68.3 ml/min Est GFR (Non-Af Amer) 58.9 ml/min BUN/Creatinine Ratio 19.1 (10-20) Glucose 129 H (70-99(Fasting)) mg/dl Calcium 9.6 (8.5-10.1) mg/dl Magnesium 1.7 (1.7-2.4) mg/dl Total Bilirubin 0.9 (0.2-1.0) mg/dl AST 18 (13-39) U/L ALT 11 (7-52) U/L Alkaline Phosphatase 56 (34-104) U/L Troponin I < 0.03 (0-0.04) ng/ml Total Protein 7.7 (6.0-8.3) gm/dl Albumin 4.3 (3.4-5.0) gm/dl Globulin 3.4 (2.5-4.0) gm/dl Albumin/Globulin Ratio 1.3 (0.9-2) Lipase 16 (11-82) U/L TSH 1.755 (0.300-4.500) uIu/ml Urine Color Urine Appearance (Clear) Urine pH (4.5-7.5) Ur Specific [place] (1.000-1.030) Urine Protein (Negative) Urine Glucose (UA) (Negative) Urine Ketones (Negative) Urine Blood (Negative) Urine Nitrite (Negative) Urine Bilirubin (Negative) Urine Urobilinogen (Negative) Ur Leukocyte Esterase (Negative) Urine WBC (Auto) (0-5) /hpf Urine RBC (Auto) (0-4) /hpf U Hyaline Cast (Auto) (0-5) /lpf U Epithel Cells (Auto) (0-5) /lpf Urine Bacteria (Auto) (Negative) SARS-CoV-2, RNA, NAAT (NEGATIVE) 10/05/21 10/05/21 Range/Units 18:08 18:16 WBC (4.8-10.8) K/uL RBC (4.2-5.4) M/uL Hgb (12.0-16.0) g/dL Hct (37-47) % MCV (80-100) fL MCH (25-34) pg MCHC (32-36) g/dL RDW Std Deviation (36.4-46.3) fL RDW Coeff of Javier (11.5-14.5) % Plt Count (130-400) K/uL MPV (7.4-10.4) fL Immature Gran % (Auto) % Neut % (Auto) % Lymph % (Auto) % [place] % (Auto) % Eos % (Auto) % Baso % (Auto) % Neut # (Auto) (1.4-6.5) K/uL Lymph # (Auto) (1.2-3.4) K/uL [place] # (Auto) (0.11-0.59) K/uL Eos # (Auto) (0-0.5) K/uL Baso # (Auto) (0-0.2) K/uL Immature Gran # (Auto) (0.00-0.02) K/uL Sodium (136-145) mmol/L Potassium (3.5-5.1) mmol/L Chloride (98-107) mmol/L Carbon Dioxide (21-32) mmol/L Anion Gap (3-11) BUN (6-23) mg/dl Creatinine (0.6-1.2) mg/dl Est Cr Clr Drug Dosing Est GFR ( Amer) ml/min Est GFR (Non-Af Amer) ml/min BUN/Creatinine Ratio (10-20) Glucose (70-99(Fasting)) mg/dl Calcium (8.5-10.1) mg/dl Magnesium (1.7-2.4) mg/dl Total Bilirubin (0.2-1.0) mg/dl AST (13-39) U/L ALT (7-52) U/L Alkaline Phosphatase (34-104) U/L Troponin I (0-0.04) ng/ml Total Protein (6.0-8.3) gm/dl Albumin (3.4-5.0) gm/dl Globulin (2.5-4.0) gm/dl Albumin/Globulin Ratio (0.9-2) Lipase (11-82) U/L TSH (0.300-4.500) uIu/ml Urine Color Yellow Urine Appearance Clear (Clear) Urine pH 6.5 (4.5-7.5) Ur Specific [place] > 1.045 H (1.000-1.030) Urine Protein Negative (Negative) Urine Glucose (UA) Negative (Negative) Urine Ketones Negative (Negative) Urine Blood 1+ H (Negative) Urine Nitrite Negative (Negative) Urine Bilirubin Negative (Negative) Urine Urobilinogen Negative (Negative) Ur Leukocyte Esterase Negative (Negative) Urine WBC (Auto) 1-5 (0-5) /hpf Urine RBC (Auto) 5-10 H (0-4) /hpf U Hyaline Cast (Auto) 1-5 (0-5) /lpf U Epithel Cells (Auto) 5-10 H (0-5) /lpf Urine Bacteria (Auto) Negative (Negative) SARS-CoV-2, RNA, NAAT NEGATIVE (NEGATIVE) Administered Medications Discontinued Medications Sodium Chloride (Nss 1000ml) 1,000 mls @ 999 mls/hr IV .Q1H1M KARLA Stop: 10/05/21 17:00 Last Infusion: 10/05/21 17:25 Dose: 0 mls/hr Documented by: [id number] Admin: 10/05/21 16:11 Dose: 999 mls/hr Documented by: [id number] Potassium Chloride (K Jameson / Wtr) 10 meq in 100 mls @ 100 mls/hr IV ONE ONE; Protocol Stop: 10/05/21 17:51 Last Infusion: 10/05/21 18:59 Dose: 0 mls/hr Documented by: [id number] Admin: 10/05/21 17:45 Dose: 100 mls/hr Documented by: [id number] Magnesium Sulfate/Dextrose (Magnesium Sulfate / D5w) 1 gm in 100 mls @ 400 mls/hr IV Q15M [id number] Stop: 10/05/21 17:14 Last Infusion: 10/05/21 18:58 Dose: 0 mls/hr Documented by: [id number] Admin: 10/05/21 17:45 Dose: 400 mls/hr Documented by: [id number] Ioversol (Optiray 320 100ml) 94 ml IV ONCE ONE Stop: 10/05/21 16:58 Last Admin: 10/05/21 16:59 Dose: 94 ml Documented by: [id number] Lorazepam (Lorazepam 2 Mg/1 Ml Vial) 0.5 mg IV NOW STA Stop: 10/05/21 18:51 Last Admin: 10/05/21 19:12 Dose: 0.5 mg Documented by: [id number] Morphine Sulfate (Morphine Sulfate 4 Mg/Ml 1 Ml Carp\Vial) 4 mg IV NOW STA Stop: 10/05/21 16:00 Last Admin: 10/05/21 16:17 Dose: 4 mg Documented by: [id number] Ondansetron HCl (Ondansetron Inj 2 Mg/Ml 2 Ml Vial) 4 mg IV NOW STA Stop: 10/05/21 16:00 Last Admin: 10/05/21 16:17 Dose: 4 mg Documented by: [id number] Imaging Data Radiologist's Impression: Abdomen/Pelvis CT 10/05/21 16:01 CT abd pelvis IV con only CLINICAL HISTORY: n/v/diarrhea COMPARISON STUDY: 07/09/2019 CT DOSE: 365.82 mGy.cm TECHNIQUE: Standard CT of the Abdomen and Pelvis was performed with IV contrast. A dose lowering technique was utilized adhering to the principles of ALARA. Contrast Volume: Optiray 320, 94 ml. The patient did not receive oral contrast. FINDINGS: Lung base: The lung bases are clear. Abdominal cavity: There is no evidence for abdominal mass, adenopathy or asc ites. Liver: There is homogeneous attenuation of the liver parenchyma. There is no evidence for enhancing mass lesion. Spleen: There is homogeneous attenuation of the splenic parenchyma. There is no enhancing mass lesion. Pancreas: There is homogeneous attenuation of the pancreatic parenchyma. There is no evidence for mass lesion or peripancreatic fluid collection. Gall Bladder: Surgical clips are present from previous cholecystectomy. Adrenal glands: The adrenal glands are normal in size and attenuation. There is no evidence for enhancing mass lesion. Kidneys: There is homogeneous attenuation of the renal parenchyma bilaterally. There is no evidence for renal calculus or hydronephrosis. There is no evidence for enhancing mass. Bowel: There are mildly to moderately dilated fluid-filled loops of small bowel throughout the abdomen and pelvis with fluid levels present. There is evidence for decompression in the left lower quadrant as seen on image 253. The findings are suspicious for partial small bowel obstruction. The distal ileum is decompressed. The colon is decompressed. There is evidence for diverticulosis of the sigmoid colon without evidence for diverticulitis. There are no inflammatory changes present. There is no evidence for free air. Appendix is absent. Bladder: The bladder is within normal limits with no evidence for focal mass, calculus or diverticulum. : There is no evidence for pelvic mass or adenopathy. There is no evidence for pelvic ascites. Vasculature: There is no evidence for aneurysmal dilatation of the abdominal aorta. Atherosclerotic calcification is present. Osseous structures: There is no acute osseous pathology. Degenerative changes are seen within the spine. IMPRESSION: 1. Compared to the previous examination, there are mildly to moderately dilated loops of small bowel to the level of the left lower quadrant with what appears to be a transition zone. 2. The distal and is decompressed. 3. The findings are suspicious for small bowel obstruction. 4. Sigmoid diverticulosis without evidence for diverticulitis. 5. Additional nonacute findings are delineated above. ACT 112: Negative or not required by law. Electronically signed by: Ariel Plummer M.D. 10/05/2021 5:46 PM Chest X-Ray 10/05/21 18:42 XR chest 1V portable CLINICAL HISTORY: s/p NG tube placement. COMPARISON STUDY: 07/07/2017 TECHNIQUE: 1 view of the chest FINDINGS: Single frontal view of the chest demonstrates the cardiomediastinal silhouette to be within normal limits. NG tube has been placed with its tip just Past the GE junction. It should be further advanced into the stomach. The lungs are clear of alveolar opacities. There is no evidence for pleural e ffusion. There is no evidence for vascular congestion. There is no acute osseous pathology. IMPRESSION: 1. No acute cardiopulmonary disease. 2. Tip of NG tube just past the GE junction. It should be further advanced into the stomach. ACT 112: Negative or not required by law. Electronically signed by: Ariel Plummer M.D. 10/05/2021 7:10 PM Discharge Plan Visit Data Chief Complaint: GI Assessment Stated Complaint: VOMITING,DIARRHEA X24HRS,DEHYDRATION,ACHING,FEVER ED Provider: Leon Jernigan Discharge Problem: SBO (small bowel obstruction), Nausea & vomiting, Hypokalemia Patient Disposition: Being Evaluated by Hospitalist Forms Stand Alone Forms: [facility] Prescriptions Prescriptions: No Action alendronate 70 mg tablet 70 mg PO MAGANA@0800 RF: 0 atenolol 25 mg tablet 12.5 mg PO QAM RF: 0 amitriptyline 10 mg tablet 10 mg PO HS RF: 0 hydrochlorothiazide 25 mg tablet 25 mg PO QAM RF: 0 Calcium 600 + D(3) 600 mg calcium- 200 unit Capsule 1 cap PO BID RF: 0 ibuprofen [Advil] 200 mg Tablet 400 mg PO Q6H PRN (Reason: fever/pain) RF: 0 aspirin 325 mg Tablet,Delayed Release (Dr/Ec) 325 mg PO DAILY RF: 0 Referrals Referrals: Wong Navarrete DO [Primary Care Provider] - Discharge Problem: Nausea & vomiting Qualifiers: Vomiting type: unspecified Qualified Code(s): R11.2 - Nausea with vomiting, unspecified
[2021-10-05 16:12] LABS: Basophils # (auto) 0.01 K/uL (0-0.2); Basophils % (auto) 0.1 %; Eosinophils # (auto) 0.04 K/uL (0-0.5); Eosinophils % (auto) 0.5 %; Hematocrit (blood only) 44.2 % (37-47); Hemoglobin 15.3 g/dL (12.0-16.0); Immature Granulocytes # (auto) 0.01 K/uL (0.00-0.02); Immature Granulocytes % (auto) 0.1 %; Lymphocytes # (auto) 0.32 K/uL (1.2-3.4); Mean Corpuscular Hemoglobin 30.4 pg (25-34); Mean Corpuscular Hgb Conc 34.6 g/dL (32-36); Mean Corpuscular Volume 87.9 fL (80-100); Mean Platelet Volume 9.4 fL (7.4-10.4); Monocytes # (auto) 0.33 K/uL (0.11-0.59); Monocytes % (auto) 4.1 %; Neutrophils # (auto) 7.35 K/uL (1.4-6.5); Neutrophils % (auto) 91.2 %; Platelet Count 253 K/uL (130-400); RDW Coefficient of Variation 13.2 % (11.5-14.5); RDW Standard Deviation 42.3 fL (36.4-46.3); Red Blood Count 5.03 M/uL (4.2-5.4); White Blood Count 8.06 K/uL (4.8-10.8)
[2021-10-05 16:35] LABS: Troponin I < 0.03 ng/ml (0-0.04)
[2021-10-05 16:49] LABS: Alanine Aminotransferase 11 U/L (7-52); Albumin Globulin Ratio 1.3 (0.9-2); Albumin Level 4.3 gm/dl (3.4-5.0); Alkaline Phosphatase 56 U/L (34-104); Anion Gap 10 (3-11); Aspartate Aminotransferase 18 U/L (13-39); BUN Creatinine Ratio 19.1 (10-20); Bilirubin,Total 0.9 mg/dl (0.2-1.0); Blood Urea Nitrogen 18 mg/dl (6-23); Calcium 9.6 mg/dl (8.5-10.1); Carbon Dioxide 27 mmol/L (21-32); Chloride 100 mmol/L (98-107); Est GFR (African American) 68.3 ml/min; Est GFR (Non-African American) 58.9 ml/min; Globulin 3.4 gm/dl (2.5-4.0); Glucose 129 mg/dl (70-99(Fasting)); Lipase 16 U/L (11-82); Magnesium 1.7 mg/dl (1.7-2.4); Potassium 3.4 mmol/L (3.5-5.1); Sodium 137 mmol/L (136-145); Total Protein 7.7 gm/dl (6.0-8.3)
[2021-10-05] MEDS ORDERED: POTASSIUM CHLORIDE / WTR 10 MEQ/100 ML PLCT IV ONE (16:52)
[2021-10-05] MEDS ORDERED: OPTIRAY 320 100ml IV ONE (16:57)
[2021-10-05] MEDS ORDERED: MAGNESIUM SULFATE / D5W 1 GM/100 ML BAG IV SCH (17:00)
--- NOTE | 2021-10-05 17:47 | CT Scan Report ---
CT abd pelvis IV con only CLINICAL HISTORY: n/v/diarrhea COMPARISON STUDY: 07/09/2019 CT DOSE: 365.82 mGy.cm TECHNIQUE: Standard CT of the Abdomen and Pelvis was performed with IV contrast. A dose lowering nedra hnique was utilized adhering to the principles of ALARA. Contrast Volume: Optiray 320, 94 ml. The patient did not receive oral contrast. FINDINGS: Lung base: The lung bases are clear. Abdominal cavity: There is no evidence for abdominal mass, adenopathy or ascites. Liver: There is homogeneous attenuation of the liver parenchyma. There is no evidence for enhancing m ass lesion. Spleen: There is homogeneous attenuation of the splenic parenchyma. There is no enhancing mass lesion . Pancreas: There is homogeneous attenuation of the pancreatic parenchyma. There is no evidence for mas s lesion or peripancreatic fluid collection. Gall Bladder: Surgical clips are present from previous cholecystectomy. Adrenal glands: The adrenal glands are normal in size and attenuation. There is no evidence for enhan cing mass lesion. Kidneys: There is homogeneous attenuation of the renal parenchyma bilaterally. There is no evidence f or renal calculus or hydronephrosis. There is no evidence for enhancing mass. Bowel: There are mildly to moderately dilated fluid-filled loops of small bowel throughout the abdome n and pelvis with fluid levels present. There is evidence for decompression in the left lower quadran t as seen on image 253. The findings are suspicious for partial small bowel obstruction. The distal i leum is decompressed. The colon is decompressed. There is evidence for diverticulosis of the sigmoid colon without evidence for diverticulitis. There are no inflammatory changes present. There is no evidence for free air. Appendix is absent. Bladder: The bladder is within normal limits with no evidence for focal mass, calculus or diverticulu m. : There is no evidence for pelvic mass or adenopathy. There is no evidence for pelvic ascites. Vasculature: There is no evidence for aneurysmal dilatation of the abdominal aorta. Atherosclerotic c alcification is present. Osseous structures: There is no acute osseous pathology. Degenerative changes are seen within the spi ne. IMPRESSION: 1. Compared to the previous examination, there are mildly to moderately dilated loops of small bowel to the level of the left lower quadrant with what appears to be a transition zone. 2. The distal and is decompressed. 3. The findings are suspicious for small bowel obstruction. 4. Sigmoid diverticulosis without evidence for diverticulitis. 5. Additional nonacute findings are delineated above. ACT 112: Negative or not required by law. Electronically signed by: Ariel Plummer M.D. 10/05/2021 5:46 PM
[2021-10-05] MEDS ORDERED: SODIUM CHLORIDE 0.9% 1000ML 500 ML IV ONE (18:18)
--- NOTE | 2021-10-05 18:21 | History & Physical Report ---
Date of Service October 05, 2021 Assessment & Plan (1) SBO (small bowel obstruction): Plan: -General surgery consulted, appreciate their input. Recommending nonoperative management at this time==> NG tube, IVF with possible contrast study in the future depending on her progress. -NG tube placed in ED for decompression, initially was at GE junction, after advancement an reimaging, NG tube curled back on itself. During repositioning, the tube was removed. At this time, patient is being given a break before a 3rd attempt. -NPO, IVF, antiemetic ordered. -Ativan PRN for anxiety. -Holding all PO meds for now. -Mg++ and phosphorus labs later this evening, BMP and CBC in AM. -Stool PCR panel ordered. -WBC 8, no indication or abx at this time. (2) Hypokalemia: Plan: -K+ 3.4 in ED, given 10 MEq. Also given 1 g Mg++, borderline normal at 1.7 -Recheck BMP w/ Mg++ in AM. (3) Hypertension: Plan: -On HCTZ 25 mg and atenolol 12.5 mg daily; holding for now. (4) Osteoporosis: Plan: -Takes alendronate; holding for now. Plan: -Admit medsurg w/ tele. -SCDs, Lovenox for dvt ppx. -Full Code. History of Present Illness Chief Complaint: abdominal pain Primary Care Provider: Wong Navarrete DO Patient is a 76 y/o F with a PMH of HTN, osteoporosis, and insomnia who presents with abdominal pain with nausea and vomiting. Two days ago (10/03), patient began experiencing yellow diarrhea and mild abdominal pain. Was not severe at that time, however since then has become increasingly worse, she has also developed nausea and vomiting in the past 24 hours. She has not taken any medications at home, has had difficulty with PO intake since onset of abdominal pain. Denies fever/chills, chest pain, SOB, constipation, hematemesis, melena, hematochezia. Last BM today, has been diarrhea since Wednesday. Has been passing gas. Patient has a history of diverticulitis and abdominal surgery several years ago, no recent procedures. In ED, VS stable and within normal limits, routine labs including CBC and CMP largely unremarkable, K+ slightly low at 3.4, glucose 129. CTAP => compared to the previous examination, there are mildly to moderately dilated loops of small bowel to the level of the left lower quadrant with what appears to be a transition zone, the distal ileum and colon is decompressed, suspicious for SBO. Sigmoid diverticulosis without evidence for diverticulitis. Patient has received 1L NS bolus, zofran, morphine in ED as well as KCl and Mg for repletion. General surgery was consulted, recommending nonoperative management at this time. Hospitalist service was consulted for further evaluation and admission. Allergies Allergy/AdvReac Type Severity Reaction Status Date / Time No Known Allergies Allergy Verified 10/05/21 16:15 Home Medications Medication Instructions Recorded Confirmed Type alendronate 70 mg tablet 70 mg PO MAGANA@0800 07/09/19 10/05/21 History amitriptyline 10 mg tablet 10 mg PO HS 07/09/19 10/05/21 History atenolol 25 mg tablet 12.5 mg PO QAM 07/09/19 10/05/21 History calcium carbonate 600 mg-vitamin 1 cap PO BID 07/09/19 10/05/21 History D3 5 mcg (200 unit) capsule (Calcium 600 + D(3)) hydrochlorothiazide 25 mg tablet 25 mg PO QAM 07/09/19 10/05/21 History ibuprofen 200 mg tablet (Advil) 400 mg PO Q6H PRN 02/16/21 10/05/21 History aspirin 325 mg tablet,delayed 325 mg PO DAILY 10/05/21 10/05/21 History release Past Med/Surg History Medical History Abdominal pain Acute diverticulitis Influenza A Near syncope Syncope and collapse Surgical History Hx of appendectomy Hx of hysterectomy Family History Other Family history non-contributory Social History Smoking Status: Former smoker Tobacco Type: Cigarettes Second Hand Exposure: No; Hx Alcohol Use: No Hx Substance Use: No Preferred Language: French [place] Blower Required: No Beliefs That Will Affect Care: None marital status: Current Living Situation: Alone current occupational status: retired Feels Safe at Home: Yes Assistive Devices: None Review of Systems Review of Systems: Constitutional: No fever, sweats or chills Eyes: No diplopia, no worsening or blurred vision ENT: normal hearing, no trouble swallowing Respiratory: No cough, sputum, dyspnea at rest or on exertion Cardiovascular: No chest pain, tightness or palpitations Abdomen: diarrhea, nausea, vomiting, and abdominal pain since Wednesday Musculoskeletal: No joint pain, calf pain, swelling Neurologic: No weakness, numbness/tingling, or balance problems Psychiatric: No anxiety or depression Skin: No rash or itch Physical Exam Physical Exam: General: awake, alert, no apparent distress, with NG tube, on RA. Head: Normocephalic, atraumatic ENT: PERRL, EOMI, no pharyngeal exudate, mucous membranes moist Chest: Clear to auscultation, on room air, no adventitious breath sounds Cardiac: Regular rate and rhythm, no murmur, no JVD, normal peripheral pulses, good capillary refill Abdominal: mild distension with central tenderness upon deep palpation; no ecchymosis; NABS x 4 quadrants, no rebound or guarding Extremities: Normal inspection, no peripheral edema or erythema, calfs nontender to palpation Psych: Normal mood and affect Neuro: AAO x 3, strength intact bilaterally and rated 5/5, no motor deficits, speech is clear, no peripheral sensory deficits Skin: no rash or erythema Results & Data Results & Data ([facility]) Vital Signs (Past 12 Hours) Vital Signs Temp Pulse Pulse Resp BP BP Pulse Ox 10/05/21 17:45 92 H 18 152/74 H 96 10/05/21 16:42 91 H 18 148/65 H 93 10/05/21 15:40 35.6 C L 85 16 118/83 96 Laboratory Results Abnormal lab results 10/05/21 10/05/21 Range/Units 16:00 16:00 Neut # (Auto) 7.35 H (1.4-6.5) K/uL Lymph # (Auto) 0.32 L (1.2-3.4) K/uL Potassium 3.4 L (3.5-5.1) mmol/L Glucose 129 H (70-99(Fasting)) mg/dl Diagnostic Findings Abdomen/Pelvis CT 10/05/21 16:01 CT abd pelvis IV con only CLINICAL HISTORY: n/v/diarrhea COMPARISON STUDY: 07/09/2019 CT DOSE: 365.82 mGy.cm TECHNIQUE: Standard CT of the Abdomen and Pelvis was performed with IV contrast. A dose lowering technique was utilized adhering to the principles of ALARA. Contrast Volume: Optiray 320, 94 ml. The patient did not receive oral contrast. FINDINGS: Lung base: The lung bases are clear. Abdominal cavity: There is no evidence for abdominal mass, adenopathy or ascite s. Liver: There is homogeneous attenuation of the liver parenchyma. There is no evidence for enhancing mass lesion. Spleen: There is homogeneous attenuation of the splenic parenchyma. There is no enhancing mass lesion. Pancreas: There is homogeneous attenuation of the pancreatic parenchyma. There is no evidence for mass lesion or peripancreatic fluid collection. Gall Bladder: Surgical clips are present from previous cholecystectomy. Adrenal glands: The adrenal glands are normal in size and attenuation. There is no evidence for enhancing mass lesion. Kidneys: There is homogeneous attenuation of the renal parenchyma bilaterally. There is no evidence for renal calculus or hydronephrosis. There is no evidence for enhancing mass. Bowel: There are mildly to moderately dilated fluid-filled loops of small bowel throughout the abdomen and pelvis with fluid levels present. There is evidence for decompression in the left lower quadrant as seen on image 253. The findings are suspicious for partial small bowel obstruction. The distal ileum is decompressed. The colon is decompressed. There is evidence for diverticulosis of the sigmoid colon without evidence for diverticulitis. There are no inflammatory changes present. There is no evidence for free air. Appendix is absent. Bladder: The bladder is within normal limits with no evidence for focal mass, calculus or diverticulum. : There is no evidence for pelvic mass or adenopathy. There is no evidence for pelvic ascites. Vasculature: There is no evidence for aneurysmal dilatation of the abdominal aorta. Atherosclerotic calcification is present. Osseous structures: There is no acute osseous pathology. Degenerative changes are seen within the spine. IMPRESSION: 1. Compared to the previous examination, there are mildly to moderately dilated loops of small bowel to the level of the left lower quadrant with what appears to be a transition zone. 2. The distal and is decompressed. 3. The findings are suspicious for small bowel obstruction. 4. Sigmoid diverticulosis without evidence for diverticulitis. 5. Additional nonacute findings are delineated above. ACT 112: Negative or not required by law. Electronically signed by: Ariel Plummer M.D. 10/05/2021 5:46 PM Chest X-Ray 10/05/21 18:42 XR chest 1V portable CLINICAL HISTORY: s/p NG tube placement. COMPARISON STUDY: 07/07/2017 TECHNIQUE: 1 view of the chest FINDINGS: Single frontal view of the chest demonstrates the cardiomediastinal silhouette to be within normal limits. NG tube has been placed with its tip just Past the GE junction. It should be further advanced into the stomach. The lungs are clear of alveolar opacities. There is no evidence for pleural effusion. There is no evidence for vascular congestion. There is no acute osseous pathology. IMPRESSION: 1. No acute cardiopulmonary disease. 2. Tip of NG tube just past the GE junction. It should be further advanced into the stomach. ACT 112: Negative or not required by law. Electronically signed by: Ariel Plummer M.D. 10/05/2021 7:10 PM ECG Additional Comments: Normal sinus rhythm Nonspecific T wave abnormality Abnormal ECG When compared with ECG of 09-JUL-2019 11:15, Vent. rate has increased BY 26 BPM Nonspecific T wave abnormality, worse in Lateral leads QT has lengthened Code Status & VTE Plan Code Status Full Code. VTE Prophylaxis Plan VTE Prophylaxis will be ordered: Yes Supervising Physician Co-Signing Physician Notes Patient was seen and examined independently I discussed the case with Ondina Maria PAC I reviewed pertinent past medical social family history and also the plan of care and agree with the plan of care. She has a history of diverticulitis and abdominal surgery approximately 8 to 10 years ago she presents with nausea vomiting abdominal pain there is concern there may be transitional zone appearing on the CT scan of the left lower quadrant G-tube was placed but needs to be advanced there is been no output there is diverticulosis without diverticulitis. Patient is being admitted for bowel obstruction parenteral pain and nausea control IV hydration should be kept n.p.o. This point time her abdomen exam is not acutely she has no rebound or guarding she is hyperactive bowel sounds were not instituting antibiotics as she is white count of 8.06 but if she develops of infectious symptomatology or worsens clinically may consider antibiotics to cover intra-abdominal pathogens Any exceptions will be noted below PG Care Time/CCT Total # of Minutes Spent Total Time Spent with Patient: Total time spent is greater than 50% in coordination of care (as documented) at patient's floor/unit and/or counseling patient: Coding Level of Care Code 28013 Initial Inpt Care Lvl 3 Diagnoses SBO (small bowel obstruction) K56.609 Hypokalemia E87.6 Hypertension I10 Osteoporosis M81.0
--- NOTE | 2021-10-05 18:40 | Surgery Consultation ---
Date of Consultation October 05, 2021 Assessment & Plan (1) SBO (small bowel obstruction): Patient with nausea vomiting and diarrhea She has evidence on her CAT scan a mildly dilated small bowel Possible partial small bowel obstruction which would likely be from adhesions NG tube to be placed IV fluids Monitor electrolytes Depending on her progress we may consider a contrast study at some point Nonoperative management at the present time History of Present Illness History of Present Illness 76-year-old female with severe nausea vomiting and diarrhea Her CAT scan shows some mildly dilated small bowel with possible transition in the left lower quadrant Possible partial small bowel obstruction White blood cell count is 8000 Allergies Allergy/AdvReac Type Severity Reaction Status Date / Time No Known Allergies Allergy Verified 10/05/21 16:15 Home Medications Medication Instructions Recorded Confirmed Type alendronate 70 mg tablet 70 mg PO MAGANA@0800 07/09/19 10/05/21 History amitriptyline 10 mg tablet 10 mg PO HS 07/09/19 10/05/21 History atenolol 25 mg tablet 12.5 mg PO QAM 07/09/19 10/05/21 History calcium carbonate 600 mg-vitamin 1 cap PO BID 07/09/19 10/05/21 History D3 5 mcg (200 unit) capsule (Calcium 600 + D(3)) hydrochlorothiazide 25 mg tablet 25 mg PO QAM 07/09/19 10/05/21 History ibuprofen 200 mg tablet (Advil) 400 mg PO Q6H PRN 02/16/21 10/05/21 History aspirin 325 mg tablet,delayed 325 mg PO DAILY 10/05/21 10/05/21 History release Patient History Medical History (Updated 10/05/21 @ 18:32 by Ondina Maria PA-C) Abdominal pain Acute diverticulitis Influenza A Near syncope Syncope and collapse Surgical History Hx of appendectomy Hx of hysterectomy Family History Other Family history non-contributory Social History Smoking Status: Never smoker Tobacco Type: Cigarettes Preferred Language: Uzbek marital status: current occupational status: retired Feels Safe at Home: Yes Review of Systems Review of Systems: All systems reviewed & are unremarkable except as noted in HPI & below Physical Exam Physical Exam: Patient in her ER room watching wrestling on the TV She is in no distress Constitutional: well developed; no acute distress Eyes: + anicteric sclerae Respiratory: normal respiratory effort; no respiratory distress Cardiovascular: Rate/Rhythm: regular rate Gastrointestinal (Abdomen): Inspection/Auscultation: + abdomen distended Musculoskeletal: Head/Neck/Chest: head atraumatic Skin: no rashes, warm and dry Neurologic: awake Psychiatric: Orientation: alert Results & Data ([facility]) Vital Signs (Past 12 Hours) Vital Signs Temp Pulse Pulse Resp BP BP Pulse Ox 10/05/21 17:45 92 H 18 152/74 H 96 10/05/21 16:42 91 H 18 148/65 H 93 10/05/21 15:40 35.6 C L 85 16 118/83 96 Laboratory Results I reviewed her laboratories Diagnostic Findings I reviewed her CAT scan PG Care Time/CCT Total # of Minutes Spent Total Time Spent with Patient: Total time spent is greater than 50% in coordination of care (as documented) at patient's floor/unit and/or counseling patient: Coding Level of Care Code 28506 Initial Inpt Care Lvl 3 Diagnoses SBO (small bowel obstruction) K56.609
[2021-10-05] MEDS ORDERED: LORazepam 2 MG/1 ML VIAL IV STA (18:50)
[2021-10-05] MEDS ORDERED: LORazepam 2 MG/1 ML VIAL IV PRN (18:50)
[2021-10-05 18:53] LABS: Appearance Urine Clear (Clear); Bacteria Urine Automated Negative (Negative); Bilirubin Urine Negative (Negative); Blood Urine 1+ (Negative); Color Urine Yellow; Glucose Urine UA Negative (Negative); Ketones Urine Negative (Negative); Leukocyte Esterase Urine Negative (Negative); Nitrite Urine Negative (Negative); Protein Urine Negative (Negative); Specific Gravity Urine > 1.045 (1.000-1.030); Urobilinogen Urine Negative (Negative); pH Urine 6.5 (4.5-7.5)
[2021-10-05] MEDS ORDERED: LORazepam 2 MG/1 ML VIAL ONE (19:02)
--- NOTE | 2021-10-05 19:12 | XRay Report ---
XR chest 1V portable CLINICAL HISTORY: s/p NG tube placement. COMPARISON STUDY: 07/07/2017 TECHNIQUE: 1 view of the chest FINDINGS: Single frontal view of the chest demonstrates the cardiomediastinal silhouette to be within normal li mits. NG tube has been placed with its tip just Past the GE junction. It should be further advanced into the stomach. The lungs are clear of alveolar opacities. There is no evidence for pleural effusion. There is no ev idence for vascular congestion. There is no acute osseous pathology. IMPRESSION: 1. No acute cardiopulmonary disease. 2. Tip of NG tube just past the GE junction. It should be further advanced into the stomach. ACT 112: Negative or not required by law. Electronically signed by: Ariel Plummer M.D. 10/05/2021 7:10 PM
[2021-10-05] MEDS ORDERED: POLYETHYLENE (MIRALAX) 17 GM PACK PO PRN (20:54)
[2021-10-05] MEDS: LACTATED RINGER'S 1,000 ML IV SCH (21:35)
[2021-10-05] MEDS: ENOXAPARIN INJ 40 MG/0.4 ML SYR SQ SCH (22:43)
[2021-10-06] MEDS: ONDANSETRON INJ 2 MG/ML 2 ML VIAL IV PRN ×2 (02:30→20:28)
[2021-10-06 06:10] LABS: BUN Creatinine Ratio 17.3 (10-20); Calcium 8.2 mg/dl (8.5-10.1); Creatinine Clr Calc Pharmacy 62.8 ml/min; Est GFR (African American) 89.7 ml/min; Est GFR (Non-African American) 77.4 ml/min; Magnesium 1.8 mg/dl (1.7-2.4); Phosphorus 2.7 mg/dl (2.5-4.9); Potassium 3.3 mmol/L (3.5-5.1)
[2021-10-06 06:17] LABS: Basophils # (auto) 0.01 K/uL (0-0.2); Basophils % (auto) 0.1 %; Eosinophils # (auto) 0.01 K/uL (0-0.5); Eosinophils % (auto) 0.1 %; Hematocrit (blood only) 35.3 % (37-47); Hemoglobin 12.3 g/dL (12.0-16.0); Immature Granulocytes # (auto) 0.01 K/uL (0.00-0.02); Immature Granulocytes % (auto) 0.1 %; Lymphocytes # (auto) 0.67 K/uL (1.2-3.4); Mean Corpuscular Hemoglobin 30.2 pg (25-34); Mean Corpuscular Hgb Conc 34.8 g/dL (32-36); Mean Corpuscular Volume 86.7 fL (80-100); Mean Platelet Volume 9.3 fL (7.4-10.4); Monocytes # (auto) 0.42 K/uL (0.11-0.59); Monocytes % (auto) 6.3 %; Neutrophils # (auto) 5.56 K/uL (1.4-6.5); Neutrophils % (auto) 83.4 %; Platelet Count 193 K/uL (130-400); RDW Coefficient of Variation 13.1 % (11.5-14.5); RDW Standard Deviation 42.4 fL (36.4-46.3); Red Blood Count 4.07 M/uL (4.2-5.4); White Blood Count 6.68 K/uL (4.8-10.8)
--- NOTE | 2021-10-06 06:55 | Surgery Progress Note ---
Date of Service October 06, 2021 Assessment & Plan (1) SBO (small bowel obstruction): Plan: Patient is improved passing flatus and having bowel movements No emesis We will allow her to have clear liquids Monitor closely for now If she worsens will consider NG tube and contrast study Check labs including phos and mag Admission and Anticipated Discharge Date Admission Date: October 05, 2021 Subjective Patient appears to be doing well I would like to have something to drink She is passing flatus and had some bowel movements She has not had any emesis Review of Systems Review of Systems: All systems reviewed & are unremarkable except as noted in HPI & below Physical Exam Physical Exam: Awake and alert in no distress Constitutional: well developed; no acute distress Eyes: + anicteric sclerae Respiratory: normal respiratory effort; no respiratory distress Cardiovascular: Rate/Rhythm: regular rate Gastrointestinal (Abdomen): Inspection/Auscultation: abdomen not distended Musculoskeletal: Head/Neck/Chest: head atraumatic Skin: no rashes, warm and dry Neurologic: awake Psychiatric: Orientation: alert Results & Data ([facility]) Vital Signs (Past 12 Hours) Vital Signs Temp Pulse Pulse Pulse Resp BP BP 10/06/21 02:33 37 C 96 H 17 144/75 H 10/06/21 00:00 94 H 10/05/21 22:07 37.4 C 95 H 18 156/74 H 10/05/21 20:55 37.3 C 93 H 20 10/05/21 20:38 93 H 16 143/74 H 10/05/21 19:00 94 H 18 BP Pulse Ox 10/06/21 02:33 90 10/06/21 00:00 10/05/21 22:07 92 10/05/21 20:55 153/76 H 94 10/05/21 20:38 94 10/05/21 19:00 145/74 H 94 PG Care Time/CCT Total # of Minutes Spent Total Time Spent with Patient: Total time spent is greater than 50% in coordination of care (as documented) at patient's floor/unit and/or counseling patient: Coding Level of Care Code 27307 Inpt Consult Level 3 Diagnoses SBO (small bowel obstruction) K56.609
--- NOTE | 2021-10-06 07:42 | XRay Report ---
XR chest 1V portable CLINICAL HISTORY: s/p NG tube placement TECHNIQUE: Single frontal radiograph of the chest was obtained. Comparison: Comparison is made to chest one view 10/05/2021 FINDINGS: There is an enteric tube which is looped in the distal esophagus on the tip remains in the distal eso phagus. The cardiomediastinal silhouette is normal. The lungs are clear. No evidence of pleural effus ion or pneumothorax. IMPRESSION: Enteric tube tip is looped in the distal esophagus. ACT 112: Negative or not required by law. Electronically signed by: Kory Man M.D. 10/06/2021 7:41 AM
[2021-10-06] MEDS: LACTATED RINGER'S 1,000 ML IV SCH ×2 (09:40→21:38)
[2021-10-06] MEDS ORDERED: PIPERACILL/TAZOBAC CONSULT ACTIVE PRN (11:56)
[2021-10-06] MEDS: ACETAMINOPHEN 325 MG TAB PO PRN ×2 (12:23→19:38)
--- NOTE | 2021-10-06 12:29 | Hospitalist Progress Note ---
Date of Service October 06, 2021 Assessment & Plan (1) SBO (small bowel obstruction): Plan: Presentation with vomiting, nausea, diarrhea-abdominal symptoms better but sudden fever spike-etiology not clear Cultures and empiric Zosyn, increase IV fluids (2) Hypokalemia: Plan: -Replace (3) Hypertension: Plan: -On HCTZ 25 mg and atenolol 12.5 mg daily; holding for now. (4) Osteoporosis: Plan: -Takes alendronate; holding for now. Plan: Main new issue is fever spikeas above Admission and Anticipated Discharge Date Admission Date: October 05, 2021 Subjective Presentation with nausea, vomiting, abdominal pain, diarrheaat present abdominal pain resolved; passing bowel movements but sudden fever spike Physical Exam Physical Exam: Constitutional and general: No acute distress, looks biologic age Head and face: No puffiness, atraumatic Eyes: No scleral icterus, extraocular movements normal Neck: Supple, no JVD Musculoskeletal: No acute joint swelling, no bony abnormalities Skin/dermatologic/integument: No rash, no purpura Hematologic and lymphatic: pallor +, no petechia Gastrointestinal/abdomen: Nondistended, soft, nonacute Neurologic: Cranial nerves intact, nonfocal Psychiatry: Awake, alert, pleasant, communicative Cardiovascular: Heart rhythm regular, no rub, no murmur, no gallop Respiratory: Chest movements equal, no use of accessory muscles, no adventitious sounds Extremities: No edema, no cyanosis Results & Data Results & Data ([facility]) Vital Signs (Past 12 Hours) Vital Signs Temp Pulse Pulse Pulse Resp BP Pulse Ox 10/06/21 11:48 38.9 C H 10/06/21 10:56 93 H 17 118/62 90 10/06/21 08:00 90 10/06/21 07:15 36.9 C 95 H 16 122/54 L 91 10/06/21 02:33 37 C 96 H 17 144/75 H 90 Laboratory Results Laboratory Results - last 24 hr 10/05/21 10/05/21 10/05/21 16:00 16:00 16:00 WBC 8.06 RBC 5.03 Hgb 15.3 Hct 44.2 MCV 87.9 MCH 30.4 MCHC 34.6 RDW Std Deviation 42.3 RDW Coeff of Javier 13.2 Plt Count 253 MPV 9.4 Immature Gran % (Auto) 0.1 Neut % (Auto) 91.2 Lymph % (Auto) 4.0 [place] % (Auto) 4.1 Eos % (Auto) 0.5 Baso % (Auto) 0.1 Neut # (Auto) 7.35 H Lymph # (Auto) 0.32 L [place] # (Auto) 0.33 Eos # (Auto) 0.04 Baso # (Auto) 0.01 Immature Gran # (Auto) 0.01 Sodium 137 Potassium 3.4 L Chloride 100 Carbon Dioxide 27 Anion Gap 10 BUN 18 Creatinine 0.94 Est Cr Clr Drug Dosing Not Reportable Est GFR ( Amer) 68.3 Est GFR (Non-Af Amer) 58.9 BUN/Creatinine Ratio 19.1 Glucose 129 H Calcium 9.6 Phosphorus Magnesium 1.7 Total Bilirubin 0.9 AST 18 ALT 11 Alkaline Phosphatase 56 Troponin I < 0.03 Total Protein 7.7 Albumin 4.3 Globulin 3.4 Albumin/Globulin Ratio 1.3 Lipase 16 TSH 1.755 Urine Color Urine Appearance Urine pH Ur Specific [place] Urine Protein Urine Glucose (UA) Urine Ketones Urine Blood Urine Nitrite Urine Bilirubin Urine Urobilinogen Ur Leukocyte Esterase Urine WBC (Auto) Urine RBC (Auto) U Hyaline Cast (Auto) U Epithel Cells (Auto) Urine Bacteria (Auto) Hepatitis C Ab Screen SARS-CoV-2, RNA, NAAT 10/05/21 10/05/21 10/06/21 18:08 18:16 05:27 WBC RBC Hgb Hct MCV MCH MCHC RDW Std Deviation RDW Coeff of Javier Plt Count MPV Immature Gran % (Auto) Neut % (Auto) Lymph % (Auto) [place] % (Auto) Eos % (Auto) Baso % (Auto) Neut # (Auto) Lymph # (Auto) [place] # (Auto) Eos # (Auto) Baso # (Auto) Immature Gran # (Auto) Sodium Potassium Chloride Carbon Dioxide Anion Gap BUN Creatinine Est Cr Clr Drug Dosing Est GFR ( Amer) Est GFR (Non-Af Amer) BUN/Creatinine Ratio Glucose Calcium Phosphorus Cancelled Magnesium Cancelled Total Bilirubin AST ALT Alkaline Phosphatase Troponin I Total Protein Albumin Globulin Albumin/Globulin Ratio Lipase TSH Urine Color Yellow Urine Appearance Clear Urine pH 6.5 Ur Specific [place] > 1.045 H Urine Protein Negative Urine Glucose (UA) Negative Urine Ketones Negative Urine Blood 1+ H Urine Nitrite Negative Urine Bilirubin Negative Urine Urobilinogen Negative Ur Leukocyte Esterase Negative Urine WBC (Auto) 1-5 Urine RBC (Auto) 5-10 H U Hyaline Cast (Auto) 1-5 U Epithel Cells (Auto) 5-10 H Urine Bacteria (Auto) Negative Hepatitis C Ab Screen SARS-CoV-2, RNA, NAAT NEGATIVE 10/06/21 10/06/21 10/06/21 05:27 05:27 05:27 WBC 6.68 RBC 4.07 L Hgb 12.3 D Hct 35.3 L MCV 86.7 MCH 30.2 MCHC 34.8 RDW Std Deviation 42.4 RDW Coeff of Javier 13.1 Plt Count 193 MPV 9.3 Immature Gran % (Auto) 0.1 Neut % (Auto) 83.4 Lymph % (Auto) 10.0 [place] % (Auto) 6.3 Eos % (Auto) 0.1 Baso % (Auto) 0.1 Neut # (Auto) 5.56 Lymph # (Auto) 0.67 L [place] # (Auto) 0.42 Eos # (Auto) 0.01 Baso # (Auto) 0.01 Immature Gran # (Auto) 0.01 Sodium 135 L Potassium 3.3 L Chloride 102 Carbon Dioxide 28 Anion Gap 5 BUN 13 Creatinine 0.75 Est Cr Clr Drug Dosing 62.8 Est GFR ( Amer) 89.7 Est GFR (Non-Af Amer) 77.4 BUN/Creatinine Ratio 17.3 Glucose 108 H Calcium 8.2 L Phosphorus 2.7 Magnesium 1.8 Total Bilirubin AST ALT Alkaline Phosphatase Troponin I Total Protein Albumin Globulin Albumin/Globulin Ratio Lipase TSH Urine Color Urine Appearance Urine pH Ur Specific [place] Urine Protein Urine Glucose (UA) Urine Ketones Urine Blood Urine Nitrite Urine Bilirubin Urine Urobilinogen Ur Leukocyte Esterase Urine WBC (Auto) Urine RBC (Auto) U Hyaline Cast (Auto) U Epithel Cells (Auto) Urine Bacteria (Auto) Hepatitis C Ab Screen Neg SARS-CoV-2, RNA, NAAT PG Care Time/CCT Total # of Minutes Spent Total Time Spent with Patient: Total time spent is greater than 50% in coordination of care (as documented) at patient's floor/unit and/or counseling patient: Coding Level of Care Code 05821 Subseq Hosp Care Lvl 2 Diagnoses SBO (small bowel obstruction) K56.609 Hypokalemia E87.6 Hypertension I10 Osteoporosis M81.0
[2021-10-06] MEDS ORDERED: POTASSIUM CHLORIDE 20 MEQ/15 ML UDC PO STA (12:31)
[2021-10-06] MEDS ORDERED: PIPERACILLIN/TAZOBACTAM 4.5 GM in DEXTROSE 5% 100 ML IV ONE (12:45)
[2021-10-06] MEDS: PIPERACILLIN/TAZOBACTAM 3.375 GM in DEXTROSE 5% 100 ML IV SCH (17:09)
[2021-10-06] MEDS: ENOXAPARIN INJ 40 MG/0.4 ML SYR SQ SCH (20:42)
--- NOTE | 2021-10-06 22:14 | Electrocardiogram Report ---
Test Reason : Blood Pressure : / mmHG Vent. Rate : 078 BPM Atrial Rate : 078 BPM P-R Int : 146 ms QRS Dur : 072 ms QT Int : 476 ms P-R-T Axes : 065 043 085 degrees QTc Int : 542 ms Normal sinus rhythm Nonspecific T wave abnormality Abnormal ECG When compared with ECG of 09-JUL-2019 11:15, Vent. rate has increased BY 26 BPM Nonspecific T wave abnormality, worse in Lateral leads Confirmed by Albert Caraballo ([id number]) on 10/06/2021 10:14:10 PM Referred By: REFERRED SELF Confirmed By:Albert Caraballo
[2021-10-07] MEDS: PIPERACILLIN/TAZOBACTAM 3.375 GM in DEXTROSE 5% 100 ML IV SCH ×2 (02:22→10:41)
[2021-10-07] MEDS: LACTATED RINGER'S 1,000 ML IV SCH ×2 (07:53→17:50)
[2021-10-07 08:37] LABS: Basophils # (auto) 0.01 K/uL (0-0.2); Basophils % (auto) 0.2 %; Eosinophils # (auto) 0.13 K/uL (0-0.5); Eosinophils % (auto) 2.6 %; Hemoglobin 11.9 g/dL (12.0-16.0); Immature Granulocytes # (auto) 0.01 K/uL (0.00-0.02); Immature Granulocytes % (auto) 0.2 %; Lymphocytes # (auto) 1.15 K/uL (1.2-3.4); Lymphocytes % (auto) 22.7 %; Mean Corpuscular Hemoglobin 30.7 pg (25-34); Mean Corpuscular Volume 87.6 fL (80-100); Mean Platelet Volume 9.1 fL (7.4-10.4); Monocytes % (auto) 7.9 %; Neutrophils # (auto) 3.37 K/uL (1.4-6.5); Neutrophils % (auto) 66.4 %; Platelet Count 169 K/uL (130-400); RDW Coefficient of Variation 13.4 % (11.5-14.5); Red Blood Count 3.88 M/uL (4.2-5.4); White Blood Count 5.07 K/uL (4.8-10.8)
[2021-10-07 09:19] LABS: Albumin Globulin Ratio 1.2 (0.9-2); Albumin Level 3.2 gm/dl (3.4-5.0); BUN Creatinine Ratio 11.8 (10-20); Bilirubin,Total 0.6 mg/dl (0.2-1.0); Calcium 7.1 mg/dl (8.5-10.1); Creatinine Clr Calc Pharmacy 68.9 ml/min; Est GFR (African American) 98.5 ml/min; Globulin 2.6 gm/dl (2.5-4.0); Magnesium 1.8 mg/dl (1.7-2.4); Potassium 3.2 mmol/L (3.5-5.1); Total Protein 5.8 gm/dl (6.0-8.3)
--- NOTE | 2021-10-07 09:52 | Surgery Progress Note ---
Date of Service October 07, 2021 Assessment & Plan (1) SBO (small bowel obstruction): Plan: I think the patient may have had more of an enteritis than a bowel obstruction We will advance her to low fiber diet Discharge when medical team feels appropriate We will check a C. difficile Admission and Anticipated Discharge Date Admission Date: October 05, 2021 Subjective Bowels are moving but loose She has a very good affect and is very cheerful No abdominal pain or emesis Tolerating clear liquids Had a low-grade fever but afebrile now Review of Systems Review of Systems: All systems reviewed & are unremarkable except as noted in HPI & below Physical Exam Physical Exam: Awake and alert in no distress Abdomen soft nontender Constitutional: well developed; no acute distress Eyes: + anicteric sclerae Respiratory: normal respiratory effort; no respiratory distress Cardiovascular: Rate/Rhythm: regular rate Gastrointestinal (Abdomen): Inspection/Auscultation: abdomen not distended Musculoskeletal: Head/Neck/Chest: head atraumatic Skin: no rashes, warm and dry Neurologic: awake Psychiatric: Orientation: alert Results & Data ([facility]) Vital Signs (Past 12 Hours) Vital Signs Temp Pulse Pulse Resp BP BP Pulse Ox 10/07/21 07:50 74 10/07/21 06:56 37.2 C 78 20 138/73 97 10/07/21 03:59 36.9 C 78 20 123/69 94 10/06/21 23:39 36.7 C 75 20 122/70 92 10/06/21 22:16 80 PG Care Time/CCT Total # of Minutes Spent Total Time Spent with Patient: Total time spent is greater than 50% in coordination of care (as documented) at patient's floor/unit and/or counseling patient: Coding Level of Care Code 96020 Inpt Consult Level 3 Diagnoses SBO (small bowel obstruction) K56.609
[2021-10-07 12:02] LABS: Adenovirus F 40/41 PCR Not Detected (NotDetected); Astrovirus PCR Not Detected (NotDetected); Campylobacter PCR Not Detected (NotDetected); Clostridium diff Toxin A/B PCR Not Detected (NotDetected); Cryptosporidium PCR Not Detected (NotDetected); Cyclospora cayetanensis PCR Not Detected (NotDetected); Entamoeba histolytica PCR Not Detected (NotDetected); Enteroaggregative E.coli(EAEC) Not Detected (NotDetected); Enteropathogenic E.coli (EPEC) Not Detected (NotDetected); Enterotoxigenic E.coli (ETEC) Not Detected (NotDetected); Giardia lamblia PCR Not Detected (NotDetected); Plesiomonas shigelloides PCR Not Detected (NotDetected); Rotavirus A PCR Not Detected (NotDetected); Salmonella PCR Not Detected (NotDetected); Sapovirus PCR Not Detected (NotDetected); Shiga-like Toxin E.coli (STEC) Not Detected (NotDetected); Shigella/Enteroinvasive E.coli Not Detected (NotDetected); Vibrio cholerae PCR Not Detected (NotDetected); Vibrio species PCR Not Detected (NotDetected); Yersinia enterocolitica PCR Not Detected (NotDetected)
[2021-10-07] MEDS ORDERED: POTASSIUM CHLORIDE 20 MEQ/15 ML UDC PO STA (12:27)
--- NOTE | 2021-10-07 12:31 | Hospitalist Progress Note ---
Date of Service October 07, 2021 Assessment & Plan (1) Diarrhea: Plan: Presentation with gastrointestinal-like illness with some bowel dilatation- etiology not clear; during the course fever spike At present being treated with supportive care; empiric antibiotic pending c ultures Overall better but severe dizzinesscontinue volume, therapy (2) Hypokalemia: Plan: -Replace (3) Hypertension: Plan: -On HCTZ 25 mg and atenolol 12.5 mg daily; holding for now. (4) Osteoporosis: Plan: -Takes alendronate; holding for now. Plan: Fever spike yesterdayas above PT/OT-severe dizziness almost vertigo but unlikely to be BPPV, likely related to acute illness at present Admission and Anticipated Discharge Date Admission Date: October 05, 2021 Subjective Follow-up of presentation with diarrhea, vomiting- overall better but loose bowel movements continue; severe dizziness; no more fever spikes Physical Exam Physical Exam: Constitutional and general: No acute distress, looks biologic age Head and face: No puffiness, atraumatic Eyes: No scleral icterus, extraocular movements normal Neck: Supple, no JVD Musculoskeletal: No acute joint swelling, no bony abnormalities Skin/dermatologic/integument: No rash, no purpura Hematologic and lymphatic: pallor +, no petechia Gastrointestinal/abdomen: Nondistended, soft, nonacute Neurologic: Cranial nerves intact, nonfocal Psychiatry: Awake, alert, pleasant, communicative Cardiovascular: Heart rhythm regular, no rub, no murmur, no gallop Respiratory: Chest movements equal, no use of accessory muscles, no adventitious sounds Extremities: No edema, no cyanosis Results & Data Results & Data ([facility]) Vital Signs (Past 12 Hours) Vital Signs Temp Pulse Pulse Resp BP Pulse Ox 10/07/21 07:50 74 10/07/21 06:56 37.2 C 78 20 138/73 97 10/07/21 03:59 36.9 C 78 20 123/69 94 Laboratory Results Laboratory Results - last 24 hr 10/06/21 10/07/21 10/07/21 21:49 08:12 08:12 WBC 5.07 RBC 3.88 L Hgb 11.9 L Hct 34.0 L MCV 87.6 MCH 30.7 MCHC 35.0 RDW Std Deviation 43.0 RDW Coeff of Javier 13.4 Plt Count 169 MPV 9.1 Immature Gran % (Auto) 0.2 Neut % (Auto) 66.4 Lymph % (Auto) 22.7 [place] % (Auto) 7.9 Eos % (Auto) 2.6 Baso % (Auto) 0.2 Neut # (Auto) 3.37 Lymph # (Auto) 1.15 L [place] # (Auto) 0.40 Eos # (Auto) 0.13 Baso # (Auto) 0.01 Immature Gran # (Auto) 0.01 Sodium 136 Potassium 3.2 L Chloride 105 Carbon Dioxide 26 Anion Gap 5 BUN 8 Creatinine 0.68 Est Cr Clr Drug Dosing 68.9 Est GFR ( Amer) 98.5 Est GFR (Non-Af Amer) 85.0 BUN/Creatinine Ratio 11.8 Glucose 94 POC Glucose 101 H Calcium 7.1 L Magnesium 1.8 Total Bilirubin 0.6 AST 17 ALT 10 Alkaline Phosphatase 41 Total Protein 5.8 L D Albumin 3.2 L Globulin 2.6 Albumin/Globulin Ratio 1.2 Stl C. cayetanensis PCR Stool Rotavirus A PCR Stl Adenov F 40/41 PCR Stool Astrovirus (PCR) Stool Campylobacter PCR Stl C. diff Tox B Gene Stl C. diff Tox A/B PCR Stool Cryptosporidium PCR Stl E.coli Shiga Tox PCR Stl Enterotoxigenic E PCR Stool EAEC (PCR) Stl E. histolytica PCR Stool Giardia Lamblia PCR Stool Salmonella PCR Stool Sapovirus (PCR) Stl P. shigelloides PCR Stl Shigella/EIEC PCR St Y.enterocolitica PCR Stool Vibrio (PCR) Stl Vibrio cholerae PCR Stl Norovirus GI/GII PCR 10/07/21 10/07/21 10:00 10:00 WBC RBC Hgb Hct MCV MCH MCHC RDW Std Deviation RDW Coeff of Javier Plt Count MPV Immature Gran % (Auto) Neut % (Auto) Lymph % (Auto) [place] % (Auto) Eos % (Auto) Baso % (Auto) Neut # (Auto) Lymph # (Auto) [place] # (Auto) Eos # (Auto) Baso # (Auto) Immature Gran # (Auto) Sodium Potassium Chloride Carbon Dioxide Anion Gap BUN Creatinine Est Cr Clr Drug Dosing Est GFR ( Amer) Est GFR (Non-Af Amer) BUN/Creatinine Ratio Glucose POC Glucose Calcium Magnesium Total Bilirubin AST ALT Alkaline Phosphatase Total Protein Albumin Globulin Albumin/Globulin Ratio Stl C. cayetanensis PCR Pending Stool Rotavirus A PCR Pending Stl Adenov F 40/41 PCR Pending Stool Astrovirus (PCR) Pending Stool Campylobacter PCR Pending Stl C. diff Tox B Gene Cancelled Stl C. diff Tox A/B PCR Pending Stool Cryptosporidium PCR Pending Stl E.coli Shiga Tox PCR Pending Stl Enterotoxigenic E PCR Pending Stool EAEC (PCR) Pending Stl E. histolytica PCR Pending Stool Giardia Lamblia PCR Pending Stool Salmonella PCR Pending Stool Sapovirus (PCR) Pending Stl P. shigelloides PCR Pending Stl Shigella/EIEC PCR Pending St Y.enterocolitica PCR Pending Stool Vibrio (PCR) Pending Stl Vibrio cholerae PCR Pending Stl Norovirus GI/GII PCR Pending PG Care Time/CCT Total # of Minutes Spent Total Time Spent with Patient: Total time spent is greater than 50% in coordination of care (as documented) at patient's floor/unit and/or counseling patient: Coding Level of Care Code 09702 Subseq Hosp Care Lvl 2 Diagnoses Hypokalemia E87.6 Hypertension I10 Osteoporosis M81.0 Diarrhea R19.7
[2021-10-07 12:41] LABS: Norovirus GI/GII PCR DETECTED (NotDetected)
--- NOTE | 2021-10-07 20:36 | Communication Note ---
Date of Service: October 07, 2021 Called to assess the patient for right hip rash which reportedly started today. Patient reports itchy rash on both hips/buttocks and over lower back. Of note was recently on Zosyn and was stopped today. Denies throat/lip/tongue swelling, SOB, dizziness/lightheadedness. Afebrile, VSS/WNL. Maculopapular rash on bilateral hips/buttocks and over lower back without warmth/discharge/tenderness/surrounding redness. Suspect contact dermatitis, possibly due to detergent used for hospital sheets. Less likely developing allergic reaction to Zosyn although certainly possible. - start Hydroxyzine 25mg PO Q6H PRN for pruritus - consider Benadryl for refractory symptoms
[2021-10-07] MEDS: AMITRIPTYLINE HCL 10 MG TAB PO SCH (21:56)
[2021-10-07] MEDS: hydrOXYzine HCl 25 MG TAB PO PRN (21:56)
[2021-10-07] MEDS: ENOXAPARIN INJ 40 MG/0.4 ML SYR SQ SCH (21:56)
[2021-10-08] MEDS: LACTATED RINGER'S 1,000 ML IV SCH (04:02)
--- NOTE | 2021-10-08 05:24 | Surgery Progress Note ---
Date of Service October 08, 2021 Assessment & Plan (1) Nausea & vomiting: Plan: Enteritis interestingly positive for Noro virus Zosyn stopped supportive care medical mgt no plan for surgical intervention Admission and Anticipated Discharge Date Admission Date: October 05, 2021 Results & Data ([facility]) Vital Signs (Past 12 Hours) Vital Signs Temp Pulse Pulse Resp BP Pulse Ox 10/08/21 04:00 36.8 C 74 20 156/73 H 92 10/07/21 23:45 78 10/07/21 22:00 36.8 C 80 20 181/79 H 94 10/07/21 19:00 36.9 C 78 20 155/76 H 92 PG Care Time/CCT Total # of Minutes Spent Total Time Spent with Patient: Total time spent is greater than 50% in coordination of care (as documented) at patient's floor/unit and/or counseling patient: Coding Level of Care Code None Diagnoses Nausea & vomiting R11.2 Vomiting type: unspecified (1) Nausea & vomiting Vomiting type: unspecified Qualified Code(s): R11.2 - Nausea with vomiting, unspecified
[2021-10-08 08:40] LABS: Basophils # (auto) 0.03 K/uL (0-0.2); Basophils % (auto) 0.6 %; Eosinophils # (auto) 0.27 K/uL (0-0.5); Eosinophils % (auto) 5.8 %; Hematocrit (blood only) 35.6 % (37-47); Hemoglobin 12.1 g/dL (12.0-16.0); Immature Granulocytes # (auto) 0.01 K/uL (0.00-0.02); Immature Granulocytes % (auto) 0.2 %; Lymphocytes # (auto) 1.27 K/uL (1.2-3.4); Lymphocytes % (auto) 27.1 %; Mean Corpuscular Hemoglobin 29.6 pg (25-34); Mean Platelet Volume 9.1 fL (7.4-10.4); Monocytes # (auto) 0.46 K/uL (0.11-0.59); Monocytes % (auto) 9.8 %; Neutrophils # (auto) 2.65 K/uL (1.4-6.5); Neutrophils % (auto) 56.5 %; Platelet Count 189 K/uL (130-400); RDW Coefficient of Variation 13.2 % (11.5-14.5); RDW Standard Deviation 42.3 fL (36.4-46.3); Red Blood Count 4.09 M/uL (4.2-5.4); White Blood Count 4.69 K/uL (4.8-10.8)
[2021-10-08 09:01] LABS: Albumin Globulin Ratio 1.1 (0.9-2); Albumin Level 3.2 gm/dl (3.4-5.0); BUN Creatinine Ratio 8.9 (10-20); Bilirubin,Total 0.4 mg/dl (0.2-1.0); Calcium 7.5 mg/dl (8.5-10.1); Creatinine Clr Calc Pharmacy 84.7 ml/min; Est GFR (Non-African American) 90.6 ml/min; Globulin 2.8 gm/dl (2.5-4.0); Magnesium 1.7 mg/dl (1.7-2.4); Potassium 3.3 mmol/L (3.5-5.1)
[2021-10-08] MEDS: ACETAMINOPHEN 325 MG TAB PO PRN (10:00)
[2021-10-08] MEDS ORDERED: POTASSIUM CHLORIDE 20 MEQ/15 ML UDC PO STA (10:18)
[2021-10-08] MEDS ORDERED: KETOROLAC 30 MG/ML VIAL IV ONE (11:25)
--- NOTE | 2021-10-08 11:29 | Hospitalist Progress Note ---
Date of Service October 08, 2021 Assessment & Plan (1) Viral gastroenteritis: Plan: Clearly viral gastroenteritis; supportive care; DC IV fluid (2) Hypokalemia: Plan: -Replace (3) Hypertension: Plan: -On HCTZ 25 mg and atenolol 12.5 mg daily; BP drifting up, resume atenolol, still hold thiazide for now (4) Osteoporosis: Plan: -Takes alendronate; holding for now. Plan: Continue supportive care, ketorolac 1 dose for headache Admission and Anticipated Discharge Date Admission Date: October 05, 2021 Subjective Follow-up of presentation with diarrhea, vomiting, abdominal paindoing overall better, GI symptomology better, dizziness better; no fever spikes; primary compl aint this a.m. severe headache Physical Exam Physical Exam: Constitutional and general: No acute distress, looks biologic age Head and face: No puffiness, atraumatic Eyes: No scleral icterus, extraocular movements normal Neck: Supple, no JVD Musculoskeletal: No acute joint swelling, no bony abnormalities Skin/dermatologic/integument: No rash, no purpura Hematologic and lymphatic: pallor +, no petechia Gastrointestinal/abdomen: Nondistended, soft, nonacute Neurologic: Cranial nerves intact, nonfocal Psychiatry: Awake, alert, pleasant, communicative Cardiovascular: Heart rhythm regular, no rub, no murmur, no gallop Respiratory: Chest movements equal, no use of accessory muscles, no adventitious sounds Extremities: No edema, no cyanosis Results & Data Results & Data ([facility]) Vital Signs (Past 12 Hours) Vital Signs Temp Pulse Pulse Resp BP Pulse Ox 10/08/21 08:07 36.2 C L 72 20 152/68 H 94 10/08/21 07:10 67 10/08/21 04:00 36.8 C 74 20 156/73 H 92 10/07/21 23:45 78 Laboratory Results Laboratory Results - last 24 hr 10/07/21 10/08/21 10/08/21 10:00 08:28 08:28 WBC 4.69 L RBC 4.09 L Hgb 12.1 Hct 35.6 L MCV 87.0 MCH 29.6 MCHC 34.0 RDW Std Deviation 42.3 RDW Coeff of Javier 13.2 Plt Count 189 MPV 9.1 Immature Gran % (Auto) 0.2 Neut % (Auto) 56.5 Lymph % (Auto) 27.1 [place] % (Auto) 9.8 Eos % (Auto) 5.8 Baso % (Auto) 0.6 Neut # (Auto) 2.65 Lymph # (Auto) 1.27 [place] # (Auto) 0.46 Eos # (Auto) 0.27 Baso # (Auto) 0.03 Immature Gran # (Auto) 0.01 Sodium 139 Potassium 3.3 L Chloride 106 Carbon Dioxide 29 Anion Gap 4 BUN 5 L Creatinine 0.56 L Est Cr Clr Drug Dosing 84.7 Est GFR ( Amer) 105.0 Est GFR (Non-Af Amer) 90.6 BUN/Creatinine Ratio 8.9 L Glucose 105 H Calcium 7.5 L Magnesium 1.7 Total Bilirubin 0.4 AST 22 ALT 13 Alkaline Phosphatase 46 Total Protein 6.0 Albumin 3.2 L Globulin 2.8 Albumin/Globulin Ratio 1.1 Stl C. cayetanensis PCR Not Detected Stool Rotavirus A PCR Not Detected Stl Adenov F 40/41 PCR Not Detected Stool Astrovirus (PCR) Not Detected Stool Campylobacter PCR Not Detected Stl C. diff Tox A/B PCR Not Detected Stool Cryptosporidium PCR Not Detected Stl E.coli Shiga Tox PCR Not Detected Stl Enterotoxigenic E PCR Not Detected Stool EPEC (PCR) Not Detected Stool EAEC (PCR) Not Detected Stl E. histolytica PCR Not Detected Stool Giardia Lamblia PCR Not Detected Stool Salmonella PCR Not Detected Stool Sapovirus (PCR) Not Detected Stl P. shigelloides PCR Not Detected Stl Shigella/EIEC PCR Not Detected St Y.enterocolitica PCR Not Detected Stool Vibrio (PCR) Not Detected Stl Vibrio cholerae PCR Not Detected Stl Norovirus GI/GII PCR DETECTED A* PG Care Time/CCT Total # of Minutes Spent Total Time Spent with Patient: Total time spent is greater than 50% in coordination of care (as documented) at patient's floor/unit and/or counseling patient: Coding Level of Care Code 97095 Subseq Hosp Care Lvl 2 Diagnoses Hypokalemia E87.6 Hypertension I10 Osteoporosis M81.0 Viral gastroenteritis A08.4
[2021-10-08] MEDS: ATENOLOL 25 MG TABLET PO SCH (12:20)
[2021-10-08] MEDS ORDERED: KETOROLAC TROMETHAMINE 10 MG TABLET PO STA (21:25)
[2021-10-08] MEDS ORDERED: CALCIUM CARBONATE 500 MG CHEWABLE TAB PO STA (21:26)
[2021-10-08] MEDS: AMITRIPTYLINE HCL 10 MG TAB PO SCH (22:18)
[2021-10-08] MEDS: ENOXAPARIN INJ 40 MG/0.4 ML SYR SQ SCH (22:19)
[2021-10-08] MEDS: hydrOXYzine HCl 25 MG TAB PO PRN (23:14)
[2021-10-09 07:11] LABS: Basophils # (auto) 0.04 K/uL (0-0.2); Basophils % (auto) 0.8 %; Eosinophils # (auto) 0.39 K/uL (0-0.5); Eosinophils % (auto) 8.2 %; Hematocrit (blood only) 36.6 % (37-47); Hemoglobin 12.7 g/dL (12.0-16.0); Lymphocytes # (auto) 1.68 K/uL (1.2-3.4); Lymphocytes % (auto) 35.2 %; Mean Corpuscular Hemoglobin 30.1 pg (25-34); Mean Corpuscular Hgb Conc 34.7 g/dL (32-36); Mean Corpuscular Volume 86.7 fL (80-100); Mean Platelet Volume 9.2 fL (7.4-10.4); Monocytes # (auto) 0.43 K/uL (0.11-0.59); Neutrophils # (auto) 2.23 K/uL (1.4-6.5); Neutrophils % (auto) 46.8 %; Platelet Count 222 K/uL (130-400); RDW Coefficient of Variation 13.2 % (11.5-14.5); RDW Standard Deviation 42.3 fL (36.4-46.3); Red Blood Count 4.22 M/uL (4.2-5.4); White Blood Count 4.77 K/uL (4.8-10.8)
[2021-10-09 07:42] LABS: Albumin Globulin Ratio 1.3 (0.9-2); Albumin Level 3.5 gm/dl (3.4-5.0); BUN Creatinine Ratio 16.7 (10-20); Bilirubin,Total 0.4 mg/dl (0.2-1.0); Calcium 8.2 mg/dl (8.5-10.1); Creatinine Clr Calc Pharmacy 78.8 ml/min; Est GFR (African American) 102.6 ml/min; Est GFR (Non-African American) 88.5 ml/min; Globulin 2.8 gm/dl (2.5-4.0); Magnesium 1.7 mg/dl (1.7-2.4); Potassium 3.8 mmol/L (3.5-5.1); Total Protein 6.3 gm/dl (6.0-8.3)
[2021-10-09] MEDS ORDERED: ASPIRIN 325 MG ECTAB PO SCH (09:00)
[2021-10-09] MEDS: ATENOLOL 25 MG TABLET PO SCH (09:44)
--- NOTE | 2021-10-09 12:34 | Hospitalist Progress Note ---
Date of Service October 09, 2021 Assessment & Plan (1) Viral gastroenteritis: Plan: Clearly viral gastroenteritis; supportive care (2) Hypokalemia: Plan: -Replace as appropriate (3) Hypertension: Plan: -Slightly high trend of pressures noted but continue to observe and atenolol; hold off thiazide (4) Osteoporosis: Plan: -Takes alendronate; holding for now. (5) Vertigo: Plan: Probably acute viral labyrinthitisobserve; hold off steroids; PT ordered Plan: Mildly elevated liver enzymes and mild leukopenia can be observedoverall picture consistent with viral syndrome If vertigo better tomorrow can be discharged Admission and Anticipated Discharge Date Admission Date: October 05, 2021 Subjective Follow-up of presentation with diarrhea, vomiting, abdominal paindoing overall better, GI symptomology better; prominent symptom is ongoing vertigonot erect position, does occur with sudden head turning Physical Exam Physical Exam: Constitutional and general: No acute distress, looks biologic age Head and face: No puffiness, atraumatic Eyes: No scleral icterus, extraocular movements normal Neck: Supple, no JVD Musculoskeletal: No acute joint swelling, no bony abnormalities Skin/dermatologic/integument: No rash, no purpura Hematologic and lymphatic: pallor +, no petechia Gastrointestinal/abdomen: Nondistended, soft, nonacute Neurologic: Cranial nerves intact, nonfocal Psychiatry: Awake, alert, pleasant, communicative Cardiovascular: Heart rhythm regular, no rub, no murmur, no gallop Respiratory: Chest movements equal, no use of accessory muscles, no adventitious sounds Extremities: No edema, no cyanosis Results & Data Results & Data ([facility]) Vital Signs (Past 12 Hours) Vital Signs Temp Pulse Resp BP Pulse Ox 10/09/21 07:32 36.5 C 68 16 151/81 H 94 10/09/21 03:20 36.5 C 61 20 174/83 H 94 Laboratory Results Laboratory Results - last 24 hr 10/09/21 10/09/21 06:13 06:13 WBC 4.77 L RBC 4.22 Hgb 12.7 Hct 36.6 L MCV 86.7 MCH 30.1 MCHC 34.7 RDW Std Deviation 42.3 RDW Coeff of Javier 13.2 Plt Count 222 MPV 9.2 Immature Gran % (Auto) 0.0 Neut % (Auto) 46.8 Lymph % (Auto) 35.2 [place] % (Auto) 9.0 Eos % (Auto) 8.2 Baso % (Auto) 0.8 Neut # (Auto) 2.23 Lymph # (Auto) 1.68 [place] # (Auto) 0.43 Eos # (Auto) 0.39 Baso # (Auto) 0.04 Immature Gran # (Auto) 0.00 Sodium 138 Potassium 3.8 Chloride 106 Carbon Dioxide 26 Anion Gap 6 BUN 10 Creatinine 0.60 Est Cr Clr Drug Dosing 78.8 Est GFR ( Amer) 102.6 Est GFR (Non-Af Amer) 88.5 BUN/Creatinine Ratio 16.7 Glucose 91 Calcium 8.2 L Magnesium 1.7 Total Bilirubin 0.4 AST 46 H ALT 31 Alkaline Phosphatase 60 Total Protein 6.3 Albumin 3.5 Globulin 2.8 Albumin/Globulin Ratio 1.3 PG Care Time/CCT Total # of Minutes Spent Total Time Spent with Patient: Total time spent is greater than 50% in coordination of care (as documented) at patient's floor/unit and/or counseling patient: Coding Level of Care Code 54074 Subseq Hosp Care Lvl 2 Diagnoses Viral gastroenteritis A08.4 Hypokalemia E87.6 Hypertension I10 Osteoporosis M81.0 Vertigo R42
[2021-10-09] MEDS: ENOXAPARIN INJ 40 MG/0.4 ML SYR SQ SCH (20:48)
[2021-10-09] MEDS: AMITRIPTYLINE HCL 10 MG TAB PO SCH (20:48)
[2021-10-10] MEDS: ACETAMINOPHEN 325 MG TAB PO PRN (07:10)
[2021-10-10 08:35] LABS: Basophils # (auto) 0.05 K/uL (0-0.2); Basophils % (auto) 0.8 %; Eosinophils # (auto) 0.24 K/uL (0-0.5); Hematocrit (blood only) 39.6 % (37-47); Hemoglobin 13.5 g/dL (12.0-16.0); Immature Granulocytes # (auto) 0.02 K/uL (0.00-0.02); Immature Granulocytes % (auto) 0.3 %; Lymphocytes # (auto) 2.15 K/uL (1.2-3.4); Lymphocytes % (auto) 35.5 %; Mean Corpuscular Hemoglobin 29.7 pg (25-34); Mean Corpuscular Hgb Conc 34.1 g/dL (32-36); Mean Platelet Volume 9.2 fL (7.4-10.4); Monocytes # (auto) 0.45 K/uL (0.11-0.59); Monocytes % (auto) 7.4 %; Neutrophils # (auto) 3.15 K/uL (1.4-6.5); Platelet Count 276 K/uL (130-400); RDW Coefficient of Variation 13.2 % (11.5-14.5); Red Blood Count 4.55 M/uL (4.2-5.4); White Blood Count 6.06 K/uL (4.8-10.8)
[2021-10-10] MEDS ORDERED: hydroCHLOROthiazide 25 MG TAB PO SCH (09:00)
[2021-10-10] MEDS: ATENOLOL 25 MG TABLET PO SCH (09:04)
[2021-10-10 09:44] LABS: Albumin Globulin Ratio 1.3 (0.9-2); Albumin Level 3.7 gm/dl (3.4-5.0); BUN Creatinine Ratio 17.3 (10-20); Bilirubin,Total 0.5 mg/dl (0.2-1.0); Calcium 8.4 mg/dl (8.5-10.1); Est GFR (African American) 89.7 ml/min; Est GFR (Non-African American) 77.4 ml/min; Globulin 2.8 gm/dl (2.5-4.0); Magnesium 1.7 mg/dl (1.7-2.4); Potassium 3.8 mmol/L (3.5-5.1); Total Protein 6.5 gm/dl (6.0-8.3)
--- NOTE | 2021-10-10 10:26 | Discharge Summary ---
Date of Service October 10, 2021 Admission HPI Per Admitting Provider Patient is a 76 y/o F with a PMH of HTN, osteoporosis, and insomnia who presents with abdominal pain with nausea and vomiting. Two days ago (10/03), patient began experiencing yellow diarrhea and mild abdominal pain. Was not severe at that time, however since then has become increasingly worse, she has also developed nausea and vomiting in the past 24 hours. She has not taken any medications at home, has had difficulty with PO intake since onset of abdominal pain. Denies fever/chills, chest pain, SOB, constipation, hematemesis, melena, hematochezia. Last BM today, has been diarrhea since Wednesday. Has been passing gas. Patient has a history of diverticulitis and abdominal surgery several years ago, no recent procedures. In ED, VS stable and within normal limits, routine labs including CBC and CMP largely unremarkable, K+ slightly low at 3.4, glucose 129. CTAP => compared to the previous examination, there are mildly to moderately dilated loops of small bowel to the level of the left lower quadrant with what appears to be a transition zone, the distal ileum and colon is decompressed, suspicious for SBO. Sigmoid diverticulosis without evidence for diverticulitis. Patient has received 1L NS bolus, zofran, morphine in ED as well as KCl and Mg for repletion. General surgery was consulted, recommending nonoperative management at this time. Hospitalist service was consulted for further evaluation and admission. Principal Diagnosis Viral gastroenteritis Discharge Exam Constitutional and general: No acute distress, looks biologic age Head and face: No puffiness, atraumatic Eyes: No scleral icterus, extraocular movements normal Neck: Supple, no JVD Musculoskeletal: No acute joint swelling, no bony abnormalities Skin/dermatologic/integument: No rash, no purpura Hematologic and lymphatic: pallor +, no petechia Gastrointestinal/abdomen: Nondistended, soft, nonacute Neurologic: Cranial nerves intact, nonfocal Psychiatry: Awake, alert, pleasant, communicative Cardiovascular: Heart rhythm regular, no rub, no murmur, no gallop Respiratory: Chest movements equal, no use of accessory muscles, no adventitious sounds Extremities: No edema, no cyanosis Vital Signs Temp Pulse Pulse Resp BP BP Pulse Ox 10/10/21 08:19 36.9 C 69 20 160/82 H 98 10/10/21 07:12 36.7 C 67 16 169/84 H 97 10/10/21 02:13 36.7 C 68 18 190/79 H 95 10/09/21 22:49 36.8 C 65 20 183/82 H 95 10/09/21 22:19 70 10/09/21 19:18 36.9 C 64 18 178/80 H 98 10/09/21 15:00 36.3 C L 63 18 188/80 H 98 Intake and Output 10/09/21 10/10/21 10/10/21 22:59 06:59 14:59 Intake Total 100 / 780 Balance 100 / 780 Intake: Oral 100 / 780 Other: # Unmeasured Voids 2 1 Discharge Data Allergies Allergy/AdvReac Type Severity Reaction Status Date / Time No Known Allergies Allergy Verified 10/05/21 16:15 Consultations 10/05/21 18:18 ED Decision to Admit Stat Ordered Studies 10/05/21 16:01 CT abd pelvis IV con only Stat Hospital Course (1) Viral gastroenteritis: Clearly viral gastroenteritis-norovirus in stool, improving; recommend avoid lactose for a couple of weekscan have secondary lactose intolerance, probably temporary; slowly increase fiber in diet (2) Hypertension: Resume home meds at discharge (3) Osteoporosis: -Resume at discharge (4) Vertigo: Probably acute viral labyrinthitisimproved; should take it easy (5) Abnormal LFTs: Mildly abnormal; likely viral syndrome; CT scan no liver abnormalities should be followed as outpatient via PCP in 1 to 2 weeks Total Time Total Time Spent Total Time Spent (In Minutes): 25 Discharge Plan Discharge Items Patient Disposition: Home - Self-Care Reason For Visit: SBO Discharge Diagnosis: Viral gastroenteritis Activity: As commented below Activity Comment: As tolerated Non-emergency contact: Primary Care Provider Call non-emergency contact if: your symptoms worsen Follow-up/Referrals: Wong Navarrete, [Primary Care Provider] - Diet: Heart Healthy, Low Fiber and Other - See Diet Comment Diet Comment: Avoid lactose for a couple of weeks; slowly increase fiber in diet Addtl Attending Provider Instructions: None Pending Studies at Discharge: No Stand-Alone Forms: My [employer] Data, Smoking Cessation Medications and DC Order Prescriptions: Continued alendronate 70 mg tablet 70 mg PO MAGANA@0800 RF: 0 atenolol 25 mg tablet 12.5 mg PO QAM RF: 0 amitriptyline 10 mg tablet 10 mg PO HS RF: 0 hydrochlorothiazide 25 mg tablet 25 mg PO QAM RF: 0 Calcium 600 + D(3) 600 mg calcium- 200 unit Capsule 1 cap PO BID RF: 0 ibuprofen [Advil] 200 mg Tablet 400 mg PO Q6H PRN (Reason: fever/pain) RF: 0 aspirin 325 mg Tablet,Delayed Release (Dr/Ec) 325 mg PO DAILY RF: 0 Discharge Orders: Discharge Order (Routine); Ordered 10/10/21 Ordered By: Minesh Almodovar Admission Data Admit Date/Time: 10/05/21 18:23 Attending Provider: Minesh Almodovar Admit Provider: Howie Perez Primary Care Provider: Wong Navarrete Other Providers: Howie Perez Coding Level of Care Code D/C DAY MANAGEMENT <30 MINS Diagnoses Viral gastroenteritis A08.4 Hypertension I10 Osteoporosis M81.0 Vertigo R42 Abnormal LFTs R79.89
== END 2021-10-10 12:19 | disposition home or self-care (01) | DRG 392 ==
LOC: ED 15:39 → 2W 18:23 → SUATTDRO 18:23 → 2W 20:38

== ENCOUNTER 2023-06-26 16:23 | Observation (INO) ==
--- OUTSIDE RECORDS SUMMARY | 2023-06-26 16:27 | External Medical Summary | Continuity of Care Document ---
Author Name Unknown Organization [facility] [address] Address [address] [place], [place] [id number] Care Team Providers Care [employer]icer Name Role Phone Wanda Ruggiero Primary Care Physician [phone] [id number] Date(s): 01/06/23 - 01/06/23 [facility] [address] [facility] [address], [facility] [address] [place], [place] [phone] Encounter Diagnosis Hyperlipidemia, unspecified(Final) - White matter disease, unspecified(Final) - Benign paroxysmal vertigo, unspecified ear(Final) - Discharge Disposition: Home or Self Care Attending Physician: STEPHANIE Ruggiero Shari A Referring Physician: STEPHANIE Ruggiero Shari A Allergies, Adverse Reactions, Alerts No Known Allergies Immunizations Given and Recorded Vaccine Date Status Refusal Reason influenza virus vaccine, inactivated 1 06/08/22 Gi silvia influenza virus vaccine, inactivated 04/25/20 Florin rded influenza virus vaccine, inactivated 04/30/18 Florin rded influenza virus vaccine, inactivated 07/13/17 Give n SARS-CoV-2 mRNA (abglfbrxnpi-cnis-lut) 2 07/04/21 Recorded tetanus toxoids-diphtheria, Td (Adult) 3 03/07/21 Given SARS-CoV-2 (COVID-19) mRNA BNT-162b2 vax 4 12/04/20 Recorded SARS-CoV-2 (COVID-19) mRNA BNT-162b2 vax 5 11/13/20 Recorded zoster vaccine, inactivated 08/30/20 Recorded zoster vaccine, inactivated 05/12/20 Recorded zoster vaccine, inactivated 04/30/18 Recorded pneumococcal 23-valent vaccine 6 04/29/18 Recorded pneumococcal 23-valent vaccine 10/10/10 Recorded pneumococcal 13-valent vaccine 02/21/16 Given zoster vaccine live 08/02/11 Recorded tetanus/diphtheria/pertuss, acel (Tdap) 7 01/24/09 Recorded tetanus/diphtheria/pertuss, acel (Tdap) 01/04/09 R ecorded 1Result Comment: Evelia Edouard LPN 2Result Comment: Booster #1 3Result Comment: Olesya Martinez MA 4Result Comment: 2021-03-07: Historical information-source unspecified 5Result Comment: 2021-03-07: Historical information-source unspecified 6Result Comment: 2020-09-03: Historical information-source unspecified 7Result Comment: 2020-09-03: Historical information-source unspecified Medications alendronate 70 mg oral tablet Start: 04/16/22 12:37:00 EDT, See Instructions, Disp# 12 tab, Refills: 3, TAKE 1 TABLET BY MOUTH EVERY WEEK ON AN EMPTY STOMACH. NO FOOD OR MEDS FOR 30 MINUTES,REMAIN UPRIGHT, Pharmacy: [facility]/pharmacy #[id number] Start Date: 04/16/22 Status: Ordered amitriptyline 10 mg oral tablet Start: 08/18/22 11:34:00 EST, See Instructions, Disp# 90 tab, Refills: 3, TAKE 1 TABLET BY MOUTH EVERYDAY AT BEDTIME, Pharmacy: [facility] Start Date: 08/18/22 Status: Ordered Tito Aspirin 325 mg oral tablet Start: 08/15/12 8:09:00, 1 tab, PO, Daily Start Date: 08/15/12 Status: Ordered hydroCHLOROthiazide 25 mg oral tablet Start: 11/17/22 12:27:00 EDT, See Instructions, Disp# 90 tab, Refills: 0, TAKE 1 TABLET BY MOUTH EVERY DAY, Pharmacy: [facility] Start Date: 11/17/22 Status: Ordered lisinopril 10 mg oral tablet Start: 12/03/22 10:42:00 EDT, See Instructions, Disp# 90 tab, Refills: 1, TAKE 1 TABLET BY MOUTH EVERY DAY, Pharmacy: [facility] Start Date: 12/03/22 Status: Ordered meclizine 12.5 mg oral tablet Start: 04/22/22 10:32:00 EDT, 1 tab, PO, tid, Disp# 100 tab, Refills: 1, PRN: as needed for dizziness, Pharmacy: [facility]/pharmacy #[id number] Start Date: 04/22/22 Status: Ordered Multiple Vitamins oral capsule Start: 08/14/19 15:18:00 EST, 1 cap, PO, Daily Start Date: 08/14/19 Status: Ordered Problem List Condition Confirmation Course Effective Dates Status H ealth Status Informant Aneurysm 1 Confirmed Active Bereavement Confirmed Active HTN - Hypertension Confirmed Active Hypercholesterolemia Confirmed Active Osteopenia Confirmed Active Viral URI Confirmed Active 1right carotid artery Procedures Procedure Date Related Diagnosis Body Site Status Colonoscopy 1 10/05/22 Completed Mammogram 2 01/12/22 Completed Mammography 3 01/09/[address] of abdomen and pelvis 4 07/09/19 Completed DEXA 5 03/23/19 Completed Mammogram 6 01/03/19 Completed Mammogram - screening 7 12/29/17 C ompleted Colonoscopy 8 09/27/17 Completed Chest x-ray 9 07/07/[address] of abdomen and pelvis 10 07/07/[address] of abdomen and pelvis 11 03/22/15 Completed Colonoscopy 12 05/21/14 Completed bowel osbruction surgery 2011 Completed carotid stent 2011 Completed cholecstectomy 2001 Completed appendectomy 1963 Completed colonoscopy [address] of abdomen and pelvis wit h contrast 14 Completed 1Impression: Diverticulosis in the sigmoid colon and in the descending colon, otherwise normal. No specimen collected No repeat due to age 2IMPRESSION: ACR BI-RADS CATEGORY 1: NEGATIVE No mammographic evidence of malignancy. A 1 year screening mammogram is recommended. 3There is no mammographic evidence of malignancy. A 1 year screening mammogram is recommended. 41. Findings compatible with an acute nonspecific pancolitis with associated diarrheal illness 2. no evidence of bowel obstruction, perforation or drainable fluid collection 3. Trace reactive free pelvic fluid 4. Colonic diverticulosis 5. Cholecystectomy and appendectomy 6. Additional findings as above 5AP Spine L1-L4 is 0.961 with a T-score of -1.9 Femur Neck Left is 0.656 with a T-score of -2.8 Femur Neck Right is 0.698 with a T-score of -2.4 Femur Mean is 0.771 with a T-score -1.9 Z-score of -0.9, this patient's BMD is considered within normal limits relative to their age. Even so, they may be considered osteopenic or osteoporotic, which is normal for this age. 6IMPRESSION: ACR BI-RADS CATEGORY 2: BENIGN There is no mammographic evidence of malignancy. A one year screening is recommended. 7There is no mammographic evidence of malignancy. 1 year screening mammogram is recommended. 8Diverticulosis in the sigmoid colon. No specimens collected. Repeat in 5 years 9No active disease in chest. 101. Findings consistent with acute proximal to mid sigmoid as well as descending colonic diverticulitis/colitis 2. no evidence for abscess collection or obstruction 3. milderate pericolonic infiltratives change 11Findings consistent with mild acute sigmoid diverticulitis. No free air or abscess 12Diverticulosis in the sigmoid colon.- Repeat in 5 years due to Personal History of polyps. 132-3 polyps 14findings consistent with acute proximal to mid sigmoid as well as descending colonic diverticulitis/colitis. No evidence for abscess collection or obstruction Moderate pericolonic infiltrative change Results Laboratory List Name Date Folic Acid Level (FOLIC ACID) 01/06/23 Lipid Profile (LIPOPROTEINS) 01/06/23 Lyme Antibodies, IgG and IgM (LYME ABS I GG,IGM) 01/06/23 Vitamin B12 Level (VITAMIN B12) 01/06/23 Most recent to oldest [Reference Range]: 1 Lyme Antibodies, IgG/IgM [NEG] NEGATIVE *Unknown* (01/06/23 7:36 AM) Non-HDL 141 mg/dL 1 (01/06/23 7:36 AM) B12 [211-946 pg/mL] >1800 pg/mL *HI* (01/06/23 7:36 AM) Chol/HDL 4 (01/06/23 7:36 AM) Chol [125-200 mg/dL] 195 mg/dL (01/06/23 7:36 AM) Folate [>7.2 ng/mL] >20.0 ng/mL (01/06/23 7:36 AM) HDL [>35 mg/dL] 54 mg/dL (01/06/23 7:36 AM) LDL Chol, Calculated [50-130 mg/dL] 102 mg/dL (01/06/23 7:36 AM) TG [<200 mg/dL] 197 mg/dL (01/06/23 7:36 AM) 1Result Comment: Testing Performed By: Dept of Pathology [facility] [address], [address], [place] [address] Social History Social History Type Response Tobacco Former smoker 1 Smoking Status Never smoked cigaret kalie Sex Female 1Quit smoking 16 years ago Implantable Device List Procedure Provider Procedure Date Device Type Site Unknown Unknown 12/08/10 Unknown Unknown Device Identifier Serial Number Lot or Batch Number Manufacturing Date Expiration Date Distinct Identification Code MRI Safety Implantable Status Assigning Authority Unknown 1 Unknown Unknown Unknown Unknown Unknown MR Conditi onal Active Unknown Unknown 2 Unknown Unknown Unknown Unknown Unknown MR Conditi onal Active Unknown 1[employer]ryker Neuroform EZ stent - rt. ICA cond. 1.5/3T 2- Target 360 standard x 2 cond. 1.5/3T- Target 360 soft x 2- Target ultipaq helical x 2 Patient Care team information Care Team Personnel Name: DO Navarrete Franklin J Position: Physician - Family Med Member Role: Lifetime Relationship Address: Address: [address] [facility] [address] [place] [address] [place] Name: MD Gerald, Lelo Coreas Position: Physician - Anesthesiologist Member Role: Lifetime Relationship Address: Address: [address] [place] [id number] [place] Name: STEPHANIE Ruggiero Shari A Position: Nurse Pract - Family Med Member Role: Primary Care Provider Address: Address: [address] [place] [address] [address] [place] [address] [place] Name: Mulu Bales MD, Andres Position: Resident Member Role: Lifetime Relationship Address: Address: [address] [facility] [address] [place] [address] [place] Care Team Related Persons Name: DEREJE MICKEY Address: home [address] [place] [id number]
[2023-06-26] MEDS ORDERED: LABETALOL HCL IV 5 MG/ML 20ML IV STA (16:48)
[2023-06-26] MEDS ORDERED: MECLIZINE HCL 25 MG TAB PO STA (16:48)
[2023-06-26] MEDS ORDERED: ONDANSETRON INJ 2 MG/ML 2 ML VIAL IV STA (16:48)
[2023-06-26] MEDS ORDERED: FAMOTIDINE 20MG IV PUSH 20 MG/5 ML SYR IV STA (16:48)
--- NOTE | 2023-06-26 16:55 | Emergency Department Note ---
Impression & Plan Dizziness, Hypertension, Ambulatory dysfunction, Hypokalemia ED Provider Note NAME: SEJAL PARSONS AGE: 78 SEX: F : 1945 ARRIVES VIA: Walk-In INFORMANT: [Patient] ED PROVIDER(S): [Reg Skaggs MD] CHIEF COMPLAINT: Illness HISTORY OF PRESENT ILLNESS: The patient is a 78-year-old female who presents to the ER with several days of what she thinks is vertigo. She states that position seems to make things worse. When she bends over, she is worse, if she lays flat she is worse. She felt a spinning sensation. She felt nausea. There was no vomiting. The patient has had about a week of upper abdominal pain. She has been using Pepto- Bismol. A few hours ago, she had a black stool and she became worried that she had an ulcer or GI bleed. She presents for evaluation. There has been no fever, no cough or congestion. No urinary complaints. No one-sided weakness. No fall. She does have a history of previous vertigo. PMHx/PSHx/Social Hx: See Below PHYSICAL EXAM: GENERAL: Patient is in no acute distress. HEENT: No acute trauma, normocephalic atraumatic, mucous membranes moist, no nasal congestion. No nystagmus. NECK: No stridor, no adenopathy, no meningismus, trachea is midline. LUNGS: Clear to auscultation bilaterally, no wheeze, no rhonchi, breath sounds equal. HEART: Without murmurs gallops or rubs, regular rate and rhythm. ABDOMEN: Soft, nontender, no peritonitis. EXTREMITIES: No cyanosis, full range of motion of all the joints without pain or difficulty. NEUROLOGIC: Oriented x 3, no acute motor or sensory deficits, no focal weakness. No speech slur or facial droop, no extremity drift or cerebellar dysfunction. Excellent historian. SKIN: No jaundice, no diaphoresis. Rectal: This exam was performed with a female nurse button machine operator. The stool was black, heme-negative. DIFFERENTIAL DIAGNOSIS: Vertigo, intracranial bleeding, uncontrolled hypertension, UTI, electrolyte imbalance, ulcer, GI bleed, among others. EMERGENCY DEPARTMENT PROCEDURES: MEDICAL DECISION MAKING: There is no leukocytosis or concerning anemia. There is a normal platelet count. Potassium was somewhat low at 3.4. No renal failure. No concerning liver enzyme elevation. The patient appeared to be in a euthyroid state. Cardiac enzyme testing was not consistent with acute cardiac ischemia. On the monitoring coordinator, the patient appeared to be in a normal sinus rhythm, no dysrhythmia. Chest film showed some chronic parenchymal change, no focal infiltrate. Brain CT showed no acute bleed or mass effect. Urinalysis did not show findings of infection. On exam, the patient did not have any focal upper or lower extremities findings, no speech slur. She did have a difficult time with gait and ambulation as per nursing staff. She was persistently hypertensive. The patient received IV labetalol. She was eventually given IV hydralazine as her blood pressure was persistently high. She was given a 500 cc saline bolus. She received IV Zofran, IV Pepcid. She was given oral meclizine and IV potassium. The patient is dark stool was likely a result of her Pepto-Bismol. Stool testing here was negative for blood. Patient's presentation is certainly consistent with vertigo. Posterior circulation stroke is a possibility as well. I suspect her persistent hypertension is contributing to her presentation either way. The patient would not be a TNK candidate as she has had symptoms for days. With her findings and lack of blood pressure improvement despite IV treatment, I do think she requires a hospital stay. She may benefit from a brain MRI. I did speak with the patient and case management, the on-call hospitalist was consulted. Prior/Outside records/notes reviewed: Plastic surgery note from 09/30/2022 discussing her [place] procedure. Continuous Cardiac Monitoring per my interpretation: An order was placed for continuous cardiac monitoring. The monitor shows a rate of 78 with normal sinus rhythm. Imaging/x-ray results per my interpretation: Chest x-ray shows some chronic parenchymal change, no focal infiltrate or pneumonia. No CHF. Chronic Medical/Social conditions affecting care: Hypertension Care/Management discussed with: Case management, the on-call hospitalist. Level of care consideration(s): After review of the information above and other included data: --I believe the patient requires escalation of care to admission DISPOSITION: Admission Past Med/Surg History Medical History Vertigo Viral gastroenteritis Diarrhea Hypokalemia Nausea & vomiting Syncope and collapse Near syncope Influenza A Acute diverticulitis Abdominal pain Surgical History Hx of hysterectomy Hx of appendectomy Family History Other Family history non-contributory Social History Smoking Status: Former smoker Tobacco Type: Cigarettes Second Hand Exposure: No; Hx Alcohol Use: No Hx Substance Use: No Preferred Language: Hungarian Straddle Bug Driver Required: No Beliefs That Will Affect Care: None marital status: Current Living Situation: Alone current occupational status: retired Feels Safe at Home: Yes Assistive Devices: None Allergies Allergies Allergy/AdvReac Type Severity Reaction Status Date / Time No Known Allergies Allergy Verified 10/05/21 16:15 Home Meds Home Medications Medication Instructions Recorded Confirmed alendronate 70 mg tablet 70 mg PO MAGANA@0800 07/09/19 10/05/21 amitriptyline 10 mg tablet 10 mg PO HS 07/09/19 10/05/21 atenolol 25 mg tablet 12.5 mg PO QAM 07/09/19 10/05/21 calcium carbonate 600 mg-vitamin 1 cap PO BID 07/09/19 10/05/21 D3 5 mcg (200 unit) capsule (Calcium 600 + D(3)) hydrochlorothiazide 25 mg tablet 25 mg PO QAM 07/09/19 10/05/21 ibuprofen 200 mg tablet (Advil) 400 mg PO Q6H PRN fever/pain 02/16/21 10/05/21 aspirin 325 mg tablet,delayed 325 mg PO DAILY 10/05/21 10/05/21 release Previous Rx's Medication Instructions Recorded meclizine 25 mg tablet 25 mg PO TID PRN dizziness #30 tabs 03/31/22 Results & Data (ED) Vital Signs Vital Signs - 24 hr 06/26/23 16:34 06/26/23 17:02 06/26/23 17:19 Temperature 36.7 C Temperature Source Temporal Artery Scan Pulse Rate 71 65 58 L Respiratory Rate 17 Respiratory Effort / Characteristics Non-Labored Spontaneous Respiratory Depth Normal Respiratory Pattern Blood Pressure 164/87 H 187/83 H Blood Pressure [Right Arm] Blood Pressure Mean 112 Blood Pressure Mean [Right Arm] Blood Pressure Position Sitting Blood Pressure Position [Right Arm] Pulse Oximetry 97 Oxygen Delivery Method Room Air Sepsis Recent Fever Within 48 Hours No Sepsis New/Unexplained Change in Mental Status No Sepsis Action Taken by Nursing No Action Required 06/26/23 17:20 06/26/23 17:20 06/26/23 18:00 Temperature Temperature Source Pulse Rate Respiratory Rate 17 Respiratory Effort / Characteristics Non-Labored Spontaneous Respiratory Depth Normal Respiratory Pattern Regular Blood Pressure Blood Pressure [Right Arm] 158/83 H Blood Pressure Mean Blood Pressure Mean [Right Arm] 108 Blood Pressure Position Blood Pressure Position [Right Arm] Semi-fowlers Pulse Oximetry 96 96 Oxygen Delivery Method Room Air Room Air Sepsis Recent Fever Within 48 Hours Sepsis New/Unexplained Change in Mental Status Sepsis Action Taken by Nursing 06/26/23 18:42 Temperature Temperature Source Pulse Rate Respiratory Rate Respiratory Effort / Characteristics Respiratory Depth Respiratory Pattern Blood Pressure Blood Pressure [Right Arm] 201/94 H Blood Pressure Mean Blood Pressure Mean [Right Arm] 129 Blood Pressure Position Blood Pressure Position [Right Arm] Semi-fowlers Pulse Oximetry Oxygen Delivery Method Sepsis Recent Fever Within 48 Hours Sepsis New/Unexplained Change in Mental Status Sepsis Action Taken by Custodial Medications Current Medication List: was personally reviewed by me Laboratory Data Attestation: I reviewed the patient's lab results. 06/26/23 17:08 06/26/23 17:08 Lab Results 06/26/23 06/26/23 Range/Units 17:08 18:18 WBC 7.74 (4.8-10.8) K/ul RBC 4.96 (4.20-5.40) M/uL Hgb 14.6 (12.0-16.0) g/dl Hct 42.8 (37.0-47.0) % MCV 86.3 (80.0-100.0) fL MCH 29.4 (25.0-34.0) pg MCHC 34.1 (32.0-36.0) g/dL RDW Std Deviation 40.3 (36.4-46.3) fL RDW Coeff of Javier 12.9 (11.5-14.5) % Plt Count 258 (130-400) K/uL MPV 9.1 L (9.4-12.4) fL Immature Gran % (Auto) 0.3 % Neut % (Auto) 67.5 % Lymph % (Auto) 23.8 % [place] % (Auto) 5.8 % Eos % (Auto) 2.1 % Baso % (Auto) 0.5 % Neut # (Auto) 5.23 (1.40-6.50) K/uL Lymph # (Auto) 1.84 (1.20-3.40) K/uL [place] # (Auto) 0.45 (0.11-0.59) K/uL Eos # (Auto) 0.16 (0.00-0.50) K/uL Baso # (Auto) 0.04 (0.00-0.20) K/uL Immature Gran # (Auto) 0.02 (0.01-0.20) K/uL Sodium 136 (136-145) mmol/L Potassium 3.4 L (3.5-5.1) mmol/L Chloride 100 (98-107) mmol/L Carbon Dioxide 27 (21-32) mmol/L Anion Gap 9 (3-11) BUN 18 (6-23) mg/dl Creatinine 0.87 (0.6-1.2) mg/dl Est Cr Clr Drug Dosing 52.2 ml/min Est GFR ( Amer) 74.0 ml/min Est GFR (Non-Af Amer) 63.8 ml/min BUN/Creatinine Ratio 20.7 H (10-20) Glucose 109 H (70-99(Fasting)) mg/dl Calcium 10.3 (8.6-10.3) mg/dl Magnesium 1.7 (1.7-2.4) mg/dl Total Bilirubin 0.5 (0.2-1.0) mg/dl AST 18 (13-39) U/L ALT 10 (7-52) U/L Alkaline Phosphatase 64 (34-104) U/L Troponin I High Sens 2.7 (0-14) pg/ml Total Protein 7.6 (6.0-8.3) gm/dl Albumin 4.3 (3.4-5.0) gm/dl Globulin 3.3 (2.5-4.0) gm/dl Albumin/Globulin Ratio 1.3 (0.9-2) TSH 3.359 (0.300-4.500) uIu/ml Urine Color Yellow Urine Appearance Clear (Clear) Urine pH 6.5 (4.5-7.5) Ur Specific [place] 1.015 (1.000-1.030) Urine Protein Negative (Negative) Urine Glucose (UA) Negative (Negative) Urine Ketones Negative (Negative) Urine Blood 1+ H (Negative) Urine Nitrite Negative (Negative) Urine Bilirubin Negative (Negative) Urine Urobilinogen Negative (Negative) Ur Leukocyte Esterase Trace H (Negative) Urine WBC (Auto) 1-5 (0-5) /hpf Urine RBC (Auto) 0-4 (0-4) /hpf U Hyaline Cast (Auto) 1-5 (0-5) /lpf U Epithel Cells (Auto) 10-20 H (0-5) /lpf Urine Bacteria (Auto) Negative (Negative) Administered Medications Discontinued Medications Hydralazine HCl (Hydralazine Hcl 20 Mg/Ml Vial) 10 mg IV NOW STA Stop: 06/26/23 18:45 Last Admin: 06/26/23 18:58 Dose: 10 mg Documented By: HENNY Famotidine (Pepcid 20mg Iv Push) 20 mg in 5 mls @ 2.5 mls/min IV NOW STA Stop: 06/26/23 16:49 Last Admin: 06/26/23 17:02 Dose: 2.5 mls/min Documented By: HENNY Sodium Chloride (Nss) 500 mls @ 999 mls/hr IV .Q31M KARLA Stop: 06/26/23 17:30 Last Admin: 06/26/23 17:02 Dose: 999 mls/hr Documented By: HENNY Labetalol HCl (Labetalol Hcl Iv 5 Mg/Ml 20ml) 10 mg IV NOW STA Stop: 06/26/23 16:49 Last Admin: 06/26/23 17:02 Dose: 10 mg Documented By: HENNY Co-signed By: ANKIT Meclizine HCl (Meclizine Hcl 25 Mg Tab) 25 mg PO NOW STA Stop: 06/26/23 16:49 Last Admin: 06/26/23 17:02 Dose: 25 mg Documented By: HENNY Ondansetron HCl (Ondansetron Inj 2 Mg/Ml 2 Ml Vial) 4 mg IV NOW STA Stop: 06/26/23 16:49 Last Admin: 06/26/23 17:02 Dose: 4 mg Documented By: HENNY Imaging Data Radiologist's Impression: Chest X-Ray 06/26/23 16:48 XR chest 1V portable HISTORY: weakness COMPARISON: Chest 03/31/2022. FINDINGS: Mild interstitial thickening. This is likely chronic. No new focal lung consolidations to suggest a pneumonia. No evidence for pulmonary edema. The cardiac silhouette is normal in size. There are old, healed right-sided rib fractures. No pleural effusions. No pneumothorax. IMPRESSION: Mild interstitial thickening which is likely chronic. Otherwise, no acute process within the chest ACT 112: Negative or not required by law. Electronically signed by: Osmany Mccabe M.D. 06/26/2023 6:[address] 06/26/23 16:[address] DOSE: 547.75 mGy.cm HISTORY: dizzy, htn TECHNIQUE: Multiaxial CT images of the head were performed without the use of intravenous contrast. Automated exposure control was utilized for this study. A dose lowering technique was utilized adhering to the principles of ALARA. Comparison: Head CT 03/31/2022. Findings: The paranasal sinuses and mastoid air cells are clear. The calvarium and skull base are intact. There is no mass, hematoma, midline shift, acute infarct. White matter hypodensity is nonspecific but suggestive of microvascular ischemic change. The ventricles and sulci demonstrate mild age-related involutional changes. Aneurysm coils again noted the right basilar cistern. This results in metallic artifact. Impression: No significant change compared to the prior study. No acute intracranial abnormality. ACT 112: Negative or not required by law. Electronically signed by: Osmany Mccabe M.D. 06/26/2023 6:32 PM Discharge Plan Visit Data Chief Complaint: Illness Stated Complaint: VERTIGO, ABDOMINAL PAIN, BLACK STOOLS ED Provider: Reg Skaggs Discharge Problem: Dizziness, Hypertension, Ambulatory dysfunction, Hypokalemia Patient Disposition: Admitted As Inpatient Condition: Fair Forms Stand Alone Forms: My [facility] Prescriptions Prescriptions: No Action alendronate 70 mg tablet 70 mg PO MAGANA@0800 atenolol 25 mg tablet 12.5 mg PO QAM amitriptyline 10 mg tablet 10 mg PO HS hydrochlorothiazide 25 mg tablet 25 mg PO QAM Calcium 600 + D(3) 600 mg calcium- 200 unit Capsule 1 cap PO BID ibuprofen [Advil] 200 mg Tablet 400 mg PO Q6H PRN (Reason: fever/pain) aspirin 325 mg Tablet,Delayed Release (Dr/Ec) 325 mg PO DAILY meclizine 25 mg tablet 25 mg PO TID PRN (Reason: dizziness) Qty: 30 0RF Referrals Referrals: Wong Navarrete DO [Primary Care Provider] - Discharge Problem: Hypertension Qualifiers: Hypertension type: unspecified Qualified Code(s): I10 - Essential (primary) hypertension
[2023-06-26] MEDS ORDERED: SODIUM CHLORIDE 0.9% 500 ML IV SCH (17:00)
[2023-06-26 17:22] LABS: Basophils # (auto) 0.04 K/uL (0.00-0.20); Basophils % (auto) 0.5 %; Eosinophils # (auto) 0.16 K/uL (0.00-0.50); Eosinophils % (auto) 2.1 %; Hematocrit (blood only) 42.8 % (37.0-47.0); Hemoglobin 14.6 g/dl (12.0-16.0); Immature Granulocytes # (auto) 0.02 K/uL (0.01-0.20); Immature Granulocytes % (auto) 0.3 %; Lymphocytes # (auto) 1.84 K/uL (1.20-3.40); Lymphocytes % (auto) 23.8 %; Mean Corpuscular Hemoglobin 29.4 pg (25.0-34.0); Mean Corpuscular Hgb Conc 34.1 g/dL (32.0-36.0); Mean Corpuscular Volume 86.3 fL (80.0-100.0); Mean Platelet Volume 9.1 fL (9.4-12.4); Monocytes # (auto) 0.45 K/uL (0.11-0.59); Monocytes % (auto) 5.8 %; Neutrophils # (auto) 5.23 K/uL (1.40-6.50); Neutrophils % (auto) 67.5 %; Platelet Count 258 K/uL (130-400); RDW Coefficient of Variation 12.9 % (11.5-14.5); RDW Standard Deviation 40.3 fL (36.4-46.3); Red Blood Count 4.96 M/uL (4.20-5.40); White Blood Count 7.74 K/ul (4.8-10.8)
[2023-06-26 17:39] LABS: Albumin Globulin Ratio 1.3 (0.9-2); Albumin Level 4.3 gm/dl (3.4-5.0); BUN Creatinine Ratio 20.7 (10-20); Bilirubin,Total 0.5 mg/dl (0.2-1.0); Calcium 10.3 mg/dl (8.6-10.3); Creatinine Clr Calc Pharmacy 52.2 ml/min; Est GFR (Non-African American) 63.8 ml/min; Globulin 3.3 gm/dl (2.5-4.0); Magnesium 1.7 mg/dl (1.7-2.4); Potassium 3.4 mmol/L (3.5-5.1); Total Protein 7.6 gm/dl (6.0-8.3)
[2023-06-26 17:46] LABS: Troponin I High Sensitivity 2.7 pg/ml (0-14)
[2023-06-26 17:55] LABS: Thyroid Stimulating Hormone 3.359 uIu/ml (0.300-4.500)
--- NOTE | 2023-06-26 18:10 | XRay Report ---
XR chest 1V portable HISTORY: weakness COMPARISON: Chest 03/31/2022. FINDINGS: Mild interstitial thickening. This is likely chronic. No new focal lung consolidations to s uggest a pneumonia. No evidence for pulmonary edema. The cardiac silhouette is normal in size. There are old, healed right-sided rib fractures. No pleural effusions. No pneumothorax. IMPRESSION: Mild interstitial thickening which is likely chronic. Otherwise, no acute process within the chest ACT 112: Negative or not required by law. Electronically signed by: Osmany Mccabe M.D. 06/26/2023 6:09 PM
--- NOTE | 2023-06-26 18:35 | CT Scan Report ---
HEAD CT NONCONTRAST CT DOSE: 547.75 mGy.cm HISTORY: dizzy, htn TECHNIQUE: Multiaxial CT images of the head were performed without the use of intravenous contrast. A utomated exposure control was utilized for this study. A dose lowering technique was utilized adheri ng to the principles of ALARA. Comparison: Head CT 03/31/2022. Findings: The paranasal sinuses and mastoid air cells are clear. The calvarium and skull base are int act. There is no mass, hematoma, midline shift, acute infarct. White matter hypodensity is nonspecifi c but suggestive of microvascular ischemic change. The ventricles and sulci demonstrate mild age-rela christine involutional changes. Aneurysm coils again noted the right basilar cistern. This results in metal lic artifact. Impression: No significant change compared to the prior study. No acute intracranial abnormality. ACT 112: Negative or not required by law. Electronically signed by: Osmany Mccabe M.D. 06/26/2023 6:32 PM
[2023-06-26 18:37] LABS: Appearance Urine Clear (Clear); Bacteria Urine Automated Negative (Negative); Bilirubin Urine Negative (Negative); Blood Urine 1+ (Negative); Color Urine Yellow; Glucose Urine UA Negative (Negative); Ketones Urine Negative (Negative); Leukocyte Esterase Urine Trace (Negative); Nitrite Urine Negative (Negative); Protein Urine Negative (Negative); RBC Urine Automated 0-4 /hpf (0-4); Specific Gravity Urine 1.015 (1.000-1.030); Urobilinogen Urine Negative (Negative); pH Urine 6.5 (4.5-7.5)
[2023-06-26] MEDS ORDERED: hydrALAZINE HCL 20 MG/ML VIAL IV STA (18:44)
[2023-06-26] MEDS ORDERED: POTASSIUM CHLORIDE / WTR 10 MEQ/100 ML PLCT IV ONE (19:14)
--- NOTE | 2023-06-26 20:31 | History & Physical Report ---
Date of Service June 26, 2023 Assessment & Plan (1) Dizziness: Plan: 78 year old female admitted for vertigo. -Hx of R internal carotid aneurysm s/p coil. [place] [facility] [place]. -CT head negative. Will obtain MRI brain and MRA head and brain to rule out stroke or hemorrhage. -If MRI and MRA negative, likely BPPV. -PT eval and treat for BPPV if that is the case. -Zofran for nausea. -Continue to monitor. (2) Hypertension: Plan: Chronic, continue home hydrochlorothiazide and lisinopril. (3) Osteoporosis: Plan: Chronic, continue home calcium supplement Plan F/E/N/GI: Regular DVT: SCD Code: Full Dispo: med/surg History of Present Illness Chief Complaint: Dizziness Primary Care Provider: DO Art Nicolas is a PmHx HTN, hyperlipidemia, R carotid aneurysm s/p stent and coil 2013 coming in for dizziness/vertigo worsened over the past week. Patient states that over the past year she's had on and off vertigo that was not as intense for her and not something that she brought up with the doctor's office. A week ago she developed worsening of the vertigo which she describes as a "room spinning" sensation that causes her to be nauseous. She has not thrown up from this. Thins worsened even more for her the past 24 hours and she was unable to eat or be stable on her feet due to this. She denies any past history of stroke or heart disease however she does have a history of R carotid aneurysm with coil placement at [facility] in 2013. She follows with Dr. Serna at [facility] for this and states that she was going to have a repeat MRA and follow up at [facility] this year. Denies fevers, chills, shortness of breath, diarrhea, constipation, urinary symptoms. She had a dark stool earlier today however she was Hemoccult negative in the ER as well as had sweet potatoes and pepto bismal prior to the BM. No other abnormal BM. In ER blood work was grossly normal aside from a potassium of 3.4. Of note Hemoglobin was 14.6, around patient's baseline. CT head negative. CXR mild interstitial thickening likely chronic, otherwise no acute processes. She was given labetalol and hydralazine in the ER for elevated BP, Zofran, 500cc bolus NSS, famotidine, 10meq IV potassium chloride. Allergies Allergy/AdvReac Type Severity Reaction Status Date / Time No Known Allergies Allergy Verified 06/26/23 19:50 Home Medications Medication Instructions Recorded Confirmed Type alendronate 70 mg tablet 70 mg PO MAGANA@0800 07/09/19 06/26/23 History calcium carbonate 600 mg-vitamin 1 cap PO BID 07/09/19 06/26/23 History D3 5 mcg (200 unit) capsule (Calcium 600 + D(3)) hydrochlorothiazide 25 mg tablet 25 mg PO QAM 07/09/19 06/26/23 History ibuprofen 200 mg tablet (Advil) 400 mg PO Q6H PRN fever/pain 02/16/21 06/26/23 History aspirin 325 mg tablet,delayed 325 mg PO DAILY 10/05/21 06/26/23 History release lisinopril 10 mg tablet 10 mg PO DAILY 06/26/23 06/26/23 History trazodone 50 mg tablet 25 mg (1/2 x 50 mg) PO DAILY 06/27/23 Rx Insomnia #30 tabs Past Med/Surg History Medical History (Updated 06/27/23 @ 15:15 by Fernanda Martinez DO) Vertigo Viral gastroenteritis Diarrhea Hypokalemia Nausea & vomiting Syncope and collapse Near syncope Influenza A Acute diverticulitis Abdominal pain Surgical History Hx of hysterectomy Hx of appendectomy Family History Other Family history non-contributory Social History Smoking Status: Former smoker Tobacco Type: Cigarettes Smoking End Date: 23 years ago; Second Hand Exposure: No; Do You Dip or Chew Tobacco: No; Hx Alcohol Use: No Hx Substance Use: No Preferred Language: Welsh Communication Ability: Effective Attendant Self Service Store Required: No Beliefs That Will Affect Care: None marital status: Current Living Situation: Alone current occupational status: retired Other Information That Helps Us Care for You: No Feels Safe at Home: Yes Safety Concerns: Feels Safe At This Time Assistive Devices: Glasses Review of Systems Review of Systems: As per HPI. Physical Exam Constitutional: WD/WN, vitals as above Eyes: PERRL, conjunctivae normal, anicteric sclerae ENMT: external ear and nose normal, oropharynx normal Respiratory: normal respiratory effort, lungs clear to auscultation Cardiovascular: RRR, no murmur, no edema Gastrointestinal (Abdomen): normal bowel sounds, soft, nontender, no hepatosplenomegaly Neurologic: PERRL, EOMI, accommodation nl, no face palsy, no dysarthria Psychiatric: A+Ox3, euthymic affect Results & Data Results & Data Vital Signs (Past 12 Hours) Vital Signs Temp Pulse Resp BP BP Pulse Ox O2 Del Method 06/26/23 20:00 17 148/73 H 06/26/23 18:42 201/94 H 06/26/23 18:00 158/83 H 06/26/23 17:20 96 Room Air 06/26/23 17:20 17 96 Room Air 06/26/23 17:19 58 L 06/26/23 17:02 65 187/83 H 06/26/23 16:34 36.7 C 71 17 164/87 H 97 Room Air Supervising Physician Co-Signing Physician Notes Attending addendum: I have physically seen this patient, have supervised the medical residents activities, and agree with the H&P unless as otherwise noted. Assessment and Plan: Dizziness- History of R ICA aneurysm status post coil MRI brain performed by the ED without contrast and is negative Order MRA of head and neck to further assess The patient will be admitted to telemetry for serial cardiac enzymes, serial EKG's, cardiac rhythm monitoring and a 2-D echocardiogram with Dopplers. Zofran 4 mg IV every 6 hours as needed for nausea or vomiting If all testing negative, order PT, and may need to see audiology Hypertension- Continue usual dosing of HCTZ and lisinopril Remaining orders and notations as noted Resident Activity Tracking Resident Involvement: Resident Care Provided Care Provided: Adult Hospital Medicine
[2023-06-26] MEDS ORDERED: ONDANSETRON INJ 2 MG/ML 2 ML VIAL IV PRN (22:00)
[2023-06-26] MEDS ORDERED: POLYETHYLENE (MIRALAX) 17 GM PACK PO PRN (22:00)
[2023-06-26] MEDS ORDERED: AMITRIPTYLINE HCL 10 MG TAB PO SCH (22:00)
[2023-06-26] MEDS: CALCIUM 600MG + VIT D 400 IU TAB PO SCH (22:34)
[2023-06-26] MEDS: ACETAMINOPHEN 325 MG TAB PO PRN (23:49)
[2023-06-27] MEDS ORDERED: MECLIZINE HCL 25 MG TAB PO PRN (04:37)
[2023-06-27] MEDS: SODIUM CHLORIDE 0.9% 1,000 ML IV SCH ×2 (04:45→15:44)
[2023-06-27] MEDS: ACETAMINOPHEN 325 MG TAB PO PRN (07:15)
--- NOTE | 2023-06-27 07:22 | Hospitalist Progress Note ---
Date of Service June 27, 2023 Assessment & Plan (1) Vertigo: Plan: Pt is a 78 yo female with a past medical history of HTN and osteoporosis who presents to the hospital on 06/26 for vertigo. -Hx of R internal carotid aneurysm s/p coil. Follows with [facility] [place], has appointment 08/14/2023. -CT head negative. Will obtain MRI brain and MRA head and brain to rule out stroke or hemorrhage. -If MRI and MRA negative, likely BPPV -PT eval and treat for BPPV -Zofran for nausea. (2) Hypertension: Plan: Chronic, continue home hydrochlorothiazide and lisinopril. (3) Osteoporosis: Plan: Chronic, continue home calcium supplement Plan F/E/N/GI: Regular DVT: SCD Code: Full Admission and Anticipated Discharge Date Admission Date: June 26, 2023 Subjective Pt is a 78 yo female with a past medical history of HTN and osteoporosis who presents to the hospital on 06/26 for vertigo. Pt states that she has had a similar episode of vertigo about a year ago, where if she moved around too quickly or turned her head too quick that she ended up getting vertigo or a feeling that the room was spinning around her. She states that at the time she was given meclizine, which made her nauseated so she only took it a few times, then it went away. She states that this time her symptoms started on Wednesday where she felt nauseated with headache and fatigue. She states she felt largely okay on wednesday, then wednesday evening when she bent over to pick something up she started to get bad vertigo. She states that this episode feels similar to what she experienced a year ago but this feels much worse. No tinnitus or hearing changes. Pt states she has been getting up slowly since when she stands quickly or turns her head quickly, thats when she gets symptoms. At rest she feels fine. No u/l weakness. Has not fallen. She is overall feeling well today. No nausea or vomiting today. No questions or complaints at this time. Review of Systems Review of Systems: Per HPI. Physical Exam Physical Exam: General:Alert and oriented, no acute distress, HEENT: Normocephalic, moist oral mucosa, Cardio: Regular rate and rhythm, Resp:Lungs clear to auscultation b/l, no wheezes or rhonchi, GI: Soft and nontender, nondistended, bowel sounds active Skin: Warm, pink, dry, Psych: Mood-affect congruence. Neuro: symmetric smile, brow raise, and molder wax ball strength, Results & Data Results & Data Vital Signs (Past 12 Hours) Vital Signs Temp Pulse Pulse Resp BP BP Pulse Ox 06/27/23 07:05 36.8 C 78 18 129/90 98 06/27/23 06:26 73 148/75 H 06/27/23 05:20 76 20 132/76 95 06/27/23 04:12 67 108/58 L 97 06/26/23 23:52 80 132/72 06/26/23 22:58 06/26/23 22:41 06/26/23 22:41 36.4 C L 84 20 131/78 99 06/26/23 22:39 84 131/78 99 06/26/23 22:00 36.4 C L 86 20 146/78 H 99 06/26/23 21:35 75 19 146/70 H 98 06/26/23 20:00 17 148/73 H O2 Del Method 06/27/23 07:05 Room Air 06/27/23 06:26 06/27/23 05:20 Room Air 06/27/23 04:12 Room Air 06/26/23 23:52 06/26/23 22:58 Room Air 06/26/23 22:41 Room Air 06/26/23 22:41 Room Air 06/26/23 22:39 Room Air 06/26/23 22:00 Room Air 06/26/23 21:35 Room Air 06/26/23 20:00
--- NOTE | 2023-06-27 08:07 | Electrocardiogram Report ---
Test Reason : Blood Pressure : / mmHG Vent. Rate : 069 BPM Atrial Rate : 069 BPM P-R Int : 160 ms QRS Dur : 070 ms QT Int : 386 ms P-R-T Axes : 065 034 076 degrees QTc Int : 413 ms Normal sinus rhythm Normal ECG When compared with ECG of 31-MAR-2022 08:06, Premature atrial complexes are no longer Present Confirmed by Pollo Ley ([id number]) on 06/27/2023 8:07:18 AM Referred By: REFERRED SELF Confirmed By:Pollo Ley
[2023-06-27] MEDS: CALCIUM 600MG + VIT D 400 IU TAB PO SCH (08:20)
[2023-06-27] MEDS ORDERED: lisinopril 10 MG TAB PO SCH (09:00)
[2023-06-27] MEDS ORDERED: hydroCHLOROthiazide 25 MG TAB PO SCH (09:00)
[2023-06-27] MEDS ORDERED: ASPIRIN 325 MG ECTAB PO SCH (09:00)
[2023-06-27 09:02] LABS: Basophils # (auto) 0.04 K/uL (0.00-0.20); Basophils % (auto) 0.6 %; Eosinophils # (auto) 0.17 K/uL (0.00-0.50); Eosinophils % (auto) 2.4 %; Hematocrit (blood only) 38.3 % (37.0-47.0); Hemoglobin 12.8 g/dl (12.0-16.0); Immature Granulocytes # (auto) 0.02 K/uL (0.01-0.20); Immature Granulocytes % (auto) 0.3 %; Lymphocytes # (auto) 1.99 K/uL (1.20-3.40); Lymphocytes % (auto) 27.8 %; Mean Corpuscular Hemoglobin 29.1 pg (25.0-34.0); Mean Corpuscular Hgb Conc 33.4 g/dL (32.0-36.0); Mean Platelet Volume 9.3 fL (9.4-12.4); Monocytes # (auto) 0.55 K/uL (0.11-0.59); Monocytes % (auto) 7.7 %; Neutrophils # (auto) 4.38 K/uL (1.40-6.50); Neutrophils % (auto) 61.2 %; Platelet Count 269 K/uL (130-400); RDW Coefficient of Variation 13.2 % (11.5-14.5); RDW Standard Deviation 42.4 fL (36.4-46.3); White Blood Count 7.15 K/ul (4.8-10.8)
[2023-06-27 09:17] LABS: Albumin Level 3.8 gm/dl (3.4-5.0); BUN Creatinine Ratio 18.6 (10-20); Calcium 9.6 mg/dl (8.6-10.3); Creatinine Clr Calc Pharmacy 46.5 ml/min; Est GFR (African American) 64.8 ml/min; Est GFR (Non-African American) 55.9 ml/min
[2023-06-27] MEDS ORDERED: IBUPROFEN 200 MG TAB PO STA (11:37)
--- NOTE | 2023-06-27 11:50 | Magnetic Resonance Report ---
MR angio head wo con CLINICAL HISTORY: Severe vertigo, hx R carotid aneurysm TECHNIQUE: 3D time of flight MRA of the head was performed without intravenous contrast. 3-D reconstr uctions were obtained in multiple planes. Comparison: None available at the time of this dictation. FINDINGS: Flow signal is shown in the intracranial segments of the internal carotid arteries, the anterior, mid dle and posterior cerebral arteries, the anterior and posterior communicating arteries, cerebellar ar teries, the intracranial segments of the vertebral arteries, and the basilar artery. No aneurysm, ar teriovenous malformation, dissection, nor hemodynamically significant flow stenosis is shown. Assessment of stenosis of the internal carotid arteries is based on NASCET criteria. IMPRESSION: No evidence of acute intracranial abnormality. In particular, no occlusion, hemorrhage, or aneurysmal disease is seen. ACT 112: Negative or not required by law. Electronically signed by: Kory Man M.D. 06/27/2023 11:47 AM
--- NOTE | 2023-06-27 13:13 | Magnetic Resonance Report ---
MR brain wo con CLINICAL HISTORY: Severe vertigo, hx R carotid aneurysm TECHNIQUE: Multiplanar and multisequence MR images of the brain were obtained without intravenous con trast. Comparison: Prior MRI brain 12/17/2022 FINDINGS: No abnormal restricted diffusion is identified. Foci of T2 and FLAIR hyperintensity are noted in the paraventricular areas consistent with chronic small vessel ischemic disease. Ex vacuo ventriculomegal y and sulcal enlargement is noted compatible with diffuse volume loss. No mass is seen. There is no m ass effect or midline shift. There is no evidence of acute intraparenchymal hemorrhage. No extra axia l fluid collections are seen. The corpus callosum, pituitary gland, and cerebellar tonsils appear bryanna ssly unremarkable. Flow voids of the major intracranial arterial vessels are identified. The imaged portions of the para nasal sinuses, mastoid air cells, and orbits are unremarkable. IMPRESSION: No acute abnormalities. ACT 112: Negative or not required by law. Electronically signed by: Kory Man M.D. 06/27/2023 1:11 PM
--- NOTE | 2023-06-27 15:11 | Discharge Summary ---
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 Patient states that over the past year she's had on and off vertigo that was not as intense for her and not something that she brought up with the doctor's office. A week ago she developed worsening of the vertigo which she describes as a "room spinning" sensation that causes her to be nauseous. She has not thrown up from this. Thins worsened even more for her the past 24 hours and she was unable to eat or be stable on her feet due to this. She denies any past history of stroke or heart disease however she does have a history of R carotid aneurysm with coil placement at [place] in 2013. She follows with Dr. Serna at [place] for this and states that she was going to have a repeat MRA and follow up at [place] this year. Denies fevers, chills, shortness of breath, diarrhea, constipation, urinary symptoms. She had a dark stool earlier today however she was Hemoccult negative in the ER as well as had sweet potatoes and pepto bismal prior to the BM. No other abnormal BM. In ER blood work was grossly normal aside from a potassium of 3.4. Of note Hemoglobin was 14.6, around patient's baseline. CT head negative. CXR mild interstitial thickening likely chronic, otherwise no acute processes. She was given labetalol and hydralazine in the ER for elevated BP, Zofran, 500cc bolus NSS, famotidine, 10meq IV potassium chloride. Admission Exam Per Admitting Provider Constitutional: WD/WN, vitals as above Eyes: PERRL, conjunctivae normal, anicteric sclerae ENMT: external ear and nose normal, oropharynx normal Respiratory: normal respiratory effort, lungs clear to auscultation Cardiovascular: RRR, no murmur, no edema Gastrointestinal (Abdomen): normal bowel sounds, soft, nontender, no hepatosplenomegaly Neurologic: PERRL, EOMI, accommodation nl, no face palsy, no dysarthria Psychiatric: A+Ox3, euthymic affect Principal Diagnosis Vertigo and Medication reaction Discharge Exam General: Alert and oriented, no acute distress Resp: normal resp effort, lungs clear to auscultation bilaterally Cardio: regular rate and rhythm GI: soft, bowel sounds active Skin: warm, pink Neuro: smile and brow raise symmetric, statistical developer strength 5/5 bilaterally, Discharge Data Allergies Allergy/AdvReac Type Severity Reaction Status Date / Time No Known Allergies Allergy Verified 06/26/23 19:50 Consultations 06/26/23 19:02 ED Decision to Admit Stat Ordered Studies 06/26/23 16:49 CT head/brain wo con Stat 06/26/23 22:00 MRI Angio Brain [MR angio head wo con] Routine MRI Brain [MR brain wo con] Routine Hospital Course (1) Vertigo: (2) Medication adverse effect: (3) Hypertension: (4) Osteoporosis: (5) Dizziness: Plan Pt is a 78 yo female with a pmhx of HTN, insomnia, and osteoporosis who presents to the hospital on 06/26/23 for vertigo and dizziness. Suspect that her vertigo episode was secondary to something like a viral labyrinthitis, which is self limited and already improved. In terms of her dizziness/uneasiness that she has felt for 4-5 years now, suspect medication induced from her amitriptyline or HCTZ. Discussed stopping one of these with the patient and seeing how she does. She states she does not feel the amitriptyline helps, so in favor of stopping it and if in need of a new sleep aid, discussed trazodone as an option. If not improved by Jul 11, consider stopping the HCTZ and see how she does over the 1-2 weeks after. If stopping both yields no improvement, consider other autonomic dysfunction conditions. Vertigo - Hx of R internal carotid aneurysm s/p coil. Follows with [facility], has appointment 08/14/2023 - CT head negative, MRI and MRA both unremarkable - as pt just had 1 episode of actual vertigo on Wednesday and has been able to ambulate without difficulty, suspect pt had viral labyrinthitis that is improving Dizziness secondary to possible medication reaction - pt notes having a feeling of blood hunt to her head and feeling "off" or "bad" with position changes for 4-5 years now - suspect this may be due to autonomic sluggishness secondary to either her HCTZ or amitriptyline - orthostatic vitals done by PT were negative for true orthostasis - pt notes she compensates by changing positions slowly and now bending over, dr powerss around 60 ounces of water daily Hypertension - Chronic, continue home hydrochlorothiazide and lisinopril Osteoporosis - Chronic, continue home calcium supplement Total Time Total Time Spent Total Time Spent (In Minutes): >30 Discharge Plan Discharge Items Patient Disposition: Home - Self-Care Reason For Visit: VERTIGO Discharge Diagnosis: Vertigo and Medication reaction Condition on Discharge: Fair Activity: Per Instructions section Non-emergency contact: Primary Care Provider Call non-emergency contact if: you have any medication questions and your symptoms worsen Follow-up/Referrals: Wong Navarrete DO [Primary Care Provider] - Diet: Regular Addtl Attending Provider Instructions: You were seen at the hospital on 06/26 and 06/27 for symptoms of both vertigo and chronic dizziness/uneasiness. As we discussed your vertigo further, with only 1 episode happening on Wednesday night, we think the episode may have been related to a condition called viral labyrinthitis. This involves a viral infection that sometimes may not cause any overt symptoms that can lead to irritation of the inner ear, leading to a sensation of the room spinning, also known as vertigo. This condition is self- limited and goes away on its' own without further treatment needed. Your symptoms of chronic dizziness/uneasiness with quick positional changes and bending over seems to be related to an autonomic dysfunction, where your vessels are not able to quite keep up with your movement when you change positions quickly. We think this may further be related to either your hydrochlorothiazide or amitriptyline. As we discussed, we feel it is reasonable at this point to dis continue your amitriptyline and see how you feel. If you do not feel any improvement by July 11, please let us know (see below). If you find that the amitriptyline was helpful for sleep and need another agent, we have sent a medication called Trazodone to the pharmacy for you (and if you do not need it, you can defer picking it up). Please plan to follow-up with us in our office across from the hospital in 1-2 weeks. Please call our office at [phone] tomorrow, June 28, to set up an appointment. Your physician during this stay was Dr. Martinez, and you can elect to see the same physician if you let our office staff know. Our office address is [address], [address], [place] [address]. Medications: Your medication list has been reviewed and reconciled upon discharge to ensure accuracy and continuity of care. An updated list of all your medications is included with your hospital discharge paperwork. Please review this list closely, and make note of any changes. We sent a new medication called Trazodone to your pharmacy. Take Trazodone 25 mg before bed. This is a medication to help you sleep. If you have any issues filling these prescriptions, please call [phone] and ask to leave a message for Dr. Martinez. Take your medications as instructed; do not skip a dose of your medicines. Make sure all of your doctors know every medicine you are taking (including lilv-rnb-irbbwho medicines, vitamins, and supplements). Call your primary care provider before taking any new medicines (including over- the-counter medicines, vitamins, and supplements), because some of these may interact with your current medications, or may make your symptoms worse. Tell your primary care provider if you cannot afford your medications. Activity: You can do normal everyday activities as your body allows. Take rest breaks if you feel tired. Do not overexert. Stop activity if you have pain, shortness of breath or feel dizzy. CONTACT YOUR PRIMARY CARE PROVIDER if you experience any of the following: Shortness of breath or difficulty breathing Swelling of your feet, ankles, hands or abdomen Feeling tired with normal activity or experiencing worsening dizziness or an episode of fainting Difficulty following your treatment plan, or difficulty taking medications CALL 911 OR GO TO THE EMERGENCY DEPARTMENT if you experience any of the following: Severe abdominal pain or nausea/vomiting Severe chest pain, or chest pain that radiates (moves) to your jaw or arm Sudden, severe shortness of breath or difficulty breathing Sudden weakness, especially if on one side of the body, or abrupt vision changes or changes in yoru speech Thank you for allowing us to participate in your care. Pending Studies at Discharge: No Stand-Alone Forms: [facility] Medications and DC Order Prescriptions: New trazodone 50 mg tablet 25 mg PO DAILY Qty: 30 3RF Continued alendronate 70 mg tablet 70 mg PO MAGANA@[id number] Rx Instructions: Take this medicne every Wednesday. hydrochlorothiazide 25 mg tablet 25 mg PO QAM Calcium 600 + D(3) 600 mg calcium- 200 unit Capsule 1 cap PO BID ibuprofen [Advil] 200 mg Tablet 400 mg PO Q6H PRN (Reason: fever/pain) lisinopril 10 mg tablet 10 mg PO DAILY aspirin 325 mg Tablet,Delayed Release (Dr/Ec) 325 mg PO DAILY Discontinued amitriptyline 10 mg tablet 10 mg PO HS Discharge Orders: Discharge Order (Routine); Ordered 06/27/23 Ordered By: Fernanda Martinez Admission Data Admit Date/Time: 06/26/23 20:37 Attending Provider: Cameron Mckeon Admit Provider: Rick Varela Primary Care Provider: Wong Navarrete Other Providers: Gerardo Ritchie Other Interventions: Discharge Summary Assessment (RN) Last Done: 06/27/23 15:58 Supervising Physician Co-Signing Physician Notes I personally examined the patient and verified all chappell points of history and exam, discussed case, and agree with decision making with Dr Martinez Had 2 different types of dizziness. The dizziness that ended up bringing her to the ER was a short-lived but fairly intense spinning sensation that was present even when she was laying down. This seems to have totally resolved. Separate to that she has had about 4-5 years of a lightheaded or unsettled near lightheaded sensation that when brought to its worst makes her feel like she is going to pass out, it does happen with position change but largely/most pronounced whenever she stands up from bending over or goes from sitting to standing, etc. She notes it is worse in the heat as well. She drinks at least 60 ounces of fluid a day, and exercises regularly. Vitals noted, in general she is awake and alert pleasant no distress. HEENT normocephalic atraumatic mucous membranes moist. Breathing unlabored no accessory muscle use good effort. Skin shows no rashes no pallor or icterus. Neuro without focal deficits. Vertigoshe presented for what sounds to have been a labyrinthitis type of vertigo that has essentially resolved Lightheadednessshe has 4-5 years of lightheadedness that seems most consistent with an orthostatic type of symptomatology. She stays well-hydrated and exercises regularly. She does not have significant signs or symptoms of venous stasis, she does not have any signs or symptoms of parkinsonism or other chronic conditions that would lead to autonomic instability. I suspect this is medication side effecteither due to her tricyclic or her thiazidereally either 1 almost equally culpable. Possibly both. Discussed with patient this seems to be the most likely cause of her chronic symptomswe discussed that it would make sense to do a therapeutic cessation in stepwise fashion. She noted that she was not really sure that the tricyclic was doing anything for her anyway, and given that she is on a fairly low dose, we discussed and opted to simply stop it. She was mostly taking it to help her sleep and she is not sure it was helpingif her lightheadedness gets better over the next few days to 2 weeks off of the tricyclic, then it would be clear that it was the culprit. If the tricyclic was the culprit, but with hindsight it was helping her sleep more than she was giving her credit for, can give trial to trazodone. If the tricyclic was not the culprit, would repeat the same "cessation trial" with hydrochlorothiazide. Both could easily be culprit as well, which would require stepwise cessation of both. Close outpatient follow-up. Otherwise as above Resident Activity Tracking Resident Involvement: Resident Care Provided Care Provided: Adult Hospital Medicine
--- NOTE | 2023-06-27 18:22 | Billing Data ---
Date of Service June 27, 2023 Coding Level of Care Code 30203 INP/OBS DISCH >30 MIN
--- NOTE | 2023-06-27 18:22 | Billing Data ---
Date of Service June 27, 2023 Coding Level of Care Code 16276 INP/OBS DISCH >30 MIN Comment disregard [id number]
--- NOTE | 2023-06-29 03:30 | Billing Data ---
Date of Service June 29, 2023 Coding Level of Care Code 27384 INT INP/OBS CARE
== END 2023-06-27 17:58 | disposition home or self-care (01) ==
LOC: ED 16:23 → SUATTDRO 20:37 → INTOOBSV 20:37 → 3E 20:37

== ENCOUNTER 2023-06-29 10:57 | Observation (INO) ==
--- NOTE | 2023-06-29 11:29 | XRay Report ---
SINGLE VIEW CHEST CLINICAL HISTORY: Atypical chest pain. Dizziness. FINDINGS: A PA chest radiograph is compared to study dated 06/26/2023. The cardiomediastinal silhouet te is unremarkable. Chronic interstitial thickening is similar to previous. The lungs and pleural spa mary are clear. No pneumothorax is seen. The skeletal structures are osteopenic. There are chronic/hea led right-sided rib fractures. Cholecystectomy clips are noted in the right upper quadrant. IMPRESSION: No active disease in the chest. ACT 112: Negative or not required by law. Electronically signed by: Reg Lambert M.D. 06/29/2023 11:28 AM
[2023-06-29 12:46] LABS: Basophils # (auto) 0.04 K/uL (0.00-0.20); Basophils % (auto) 0.4 %; Eosinophils # (auto) 0.19 K/uL (0.00-0.50); Eosinophils % (auto) 1.7 %; Hematocrit (blood only) 43.8 % (37.0-47.0); Immature Granulocytes # (auto) 0.04 K/uL (0.01-0.20); Immature Granulocytes % (auto) 0.4 %; Lymphocytes # (auto) 1.74 K/uL (1.20-3.40); Lymphocytes % (auto) 15.4 %; Mean Corpuscular Hemoglobin 29.2 pg (25.0-34.0); Mean Corpuscular Hgb Conc 34.2 g/dL (32.0-36.0); Mean Corpuscular Volume 85.2 fL (80.0-100.0); Mean Platelet Volume 9.4 fL (9.4-12.4); Monocytes # (auto) 0.62 K/uL (0.11-0.59); Monocytes % (auto) 5.5 %; Neutrophils # (auto) 8.67 K/uL (1.40-6.50); Neutrophils % (auto) 76.6 %; Platelet Count 298 K/uL (130-400); RDW Coefficient of Variation 12.9 % (11.5-14.5); RDW Standard Deviation 40.1 fL (36.4-46.3); Red Blood Count 5.14 M/uL (4.20-5.40)
[2023-06-29 12:56] LABS: Albumin Globulin Ratio 1.4 (0.9-2); Albumin Level 4.8 gm/dl (3.4-5.0); BUN Creatinine Ratio 20.5 (10-20); Bilirubin,Total 0.8 mg/dl (0.2-1.0); Calcium 9.8 mg/dl (8.6-10.3); Creatinine Clr Calc Pharmacy 51.3 ml/min; Est GFR (African American) 84.4 ml/min; Est GFR (Non-African American) 72.8 ml/min; Globulin 3.5 gm/dl (2.5-4.0); Potassium 3.8 mmol/L (3.5-5.1); Total Protein 8.3 gm/dl (6.0-8.3)
[2023-06-29 13:02] LABS: Troponin I High Sensitivity 3.4 pg/ml (0-14)
[2023-06-29 13:07] LABS: INR 0.9 (0.9-1.1); Partial Thromboplastin Time 28.4 Seconds (21.0-31.0); Prothrombin Time 10.3 Seconds (9.0-12.0)
[2023-06-29] MEDS ORDERED: amLODIPine BESYLATE 5 MG TAB PO ONE (15:15)
--- NOTE | 2023-06-29 15:17 | Emergency Department Note ---
Impression & Plan Hypertension, Lightheadedness ED Provider Note ED Provider Note NAME: SEJAL PARSONS AGE:78 SEX: Female : 1945 ARRIVES VIA: private vehicle INFORMANT: Patient ED PROVIDER(s): Melody Flores DO CHIEF COMPLAINT: Hypertension HPI: This is a 70-year-old female presents emergency department due to concern for hypertension. Patient was seen and admitted over the weekend with vertigo and underwent extensive evaluation. She was just discharged on Wednesday. She states the only change in her medications at time of discharge was discontinuing amitriptyline. Patient states she has not had any further episodes of vertigo. She has had some mild intermittent lightheadedness. She denies headaches, chest pain, palpitations, trouble breathing, or leg swelling. She states she has had a normal appetite and feels she is staying well-hydrated. She states she did feel well enough to go to work this morning however around 10 AM at work began to not feel well and so asked one of her colleagues to check her blood pressure. She states it was found to be markedly elevated with a systolic of 212. She states this is similar to when she initially presented to the emergency room for admission and had an initial systolic of 202. She states she has still been taking her lisinopril and HCTZ as directed. She has not yet had her follow-up appointment with her PCP. PAST MEDICAL HISTORY:See Below PAST SURGICAL HISTORY:See Below FAMILY HISTORY:See Below SOCIAL HISTORY:See Below HOME MEDICATIONS:See Below ALLERGIES:See Below VITALS:See Below PHYSICAL EXAMINATION: GENERAL: alert, well appearing, well nourished, no distress, non-toxic EYE EXAM: normal conjunctiva, PERRL and EOM's grossly intact OROPHARYNX: no exudate, no erythema, lips, buccal mucosa, and tongue normal and mucous membranes are moist NECK: supple, no nuchal rigidity, no adenopathy, non-tender LUNGS: Clear to auscultation. Normal chest wall mechanics, no w/r/r HEART: no murmurs, S1 normal and S2 normal ABDOMEN: abdomen soft, non-tender, normo-active bowel sounds, no masses, no rebound or guarding. BACK: Back is symmetrical on inspection and there is no deformity, no midline tenderness, no CVA tenderness. SKIN: no rashes, petechiae, orbruising UPPER EXTREMITIES: upper extremities are grossly normal. FROM, nml pulses b/l. LOWER EXTREMITIES: No pitting edema. FROM, nml pulses b/l. NEURO EXAM: Normal sensorium, cranial nerves II-XII grossly intact, normal speech, no facial droop,nogross weakness of arms, no gross weakness of legs. Gross sensation intact. No ataxia. Vital Signs: reviewed and remarkable Differential Diagnosis: Benign hypertension, hypertensive emergency, cardiovascular pathology, toxicologic, pheochromocytoma, electrolyte abnormality, renal disease, end organ damage, as well as other pathologies. MEDICAL DECISION MAKING: This is a 78-year-old female who presents emerged from due to concern for mild lightheadedness and significant blood pressure elevation noted while she was at work today. Patient with longstanding history of hypertension and is taking her medications as prescribed. Patient recently hospitalized for workup involving vertigo which was reassuring. Patient has had no further vertiginous symptoms. She was afebrile and vital signs stable. Labs drawn and sent, IV established, EKG and chest x-ray performed bedside interpreted by me and patient monitored on telemetry. Patient given oral amlodipine 5 mg additionally with no significant improvement. Patient had no other new or evolving symptoms while here. Case discussed with on-call hospitalist for additional evaluation and management. I do not suspect hypertensive emergency at this time. No ectopy or dysrhythmia noted on telemetry. Patient's other labs and chest x-ray imaging reassuring. Consultation(s): 1839: Discussed with Dr. Bueno, [facility] hospitalist team, for additional evaluation and management. ER Treatment Provided: See below Diagnostics Interpreted By Me: -ECG: Sinus bradycardia at 54, normal axis, normal intervals, no acute ST/T wave changes -Cardiac Monitoring: An order was placed for continuous cardiac monitoring. The monitor shows a rate of 70 with normal sinus rhythm. -Laboratory studies: As stated above and show below. -Imaging studies: X-ray Chest: A single view study of the chest was reviewed and was negative for cardiomegaly, focal infiltrate, effusion, pulmonary edema, or wide mediastinum. Triage Nursing Note Reviewed Prior/Outside Records Reviewed Past Med/Surg History Medical History Vertigo Viral gastroenteritis Diarrhea Hypokalemia Nausea & vomiting Syncope and collapse Near syncope Influenza A Acute diverticulitis Abdominal pain Surgical History Hx of hysterectomy Hx of appendectomy Family History Other Family history non-contributory Social History Smoking Status: Former smoker Tobacco Type: Cigarettes Smoking End Date: 23 years; Second Hand Exposure: No; Do You Dip or Chew Tobacco: No; Hx Alcohol Use: No Hx Substance Use: No Preferred Language: Serbian Communication Ability: Effective Retread Builder Required: No Beliefs That Will Affect Care: None marital status: Current Living Situation: Alone current occupational status: retired Other Information That Helps Us Care for You: No Feels Safe at Home: Yes Safety Concerns: Feels Safe At This Time Assistive Devices: Glasses Allergies Allergies Allergy/AdvReac Type Severity Reaction Status Date / Time No Known Allergies Allergy Verified 06/29/23 17:02 Home Meds Home Medications Medication Instructions Recorded Confirmed alendronate 70 mg tablet 70 mg PO WK 07/09/19 06/29/23 calcium carbonate 600 mg-vitamin 1 cap PO BID 07/09/19 06/29/23 D3 5 mcg (200 unit) capsule (Calcium 600 + D(3)) hydrochlorothiazide 25 mg tablet 25 mg PO QAM 07/09/19 06/29/23 ibuprofen 200 mg tablet (Advil) 400 mg PO Q6H PRN fever/pain 02/16/21 06/29/23 aspirin 325 mg tablet,delayed 325 mg PO DAILY 10/05/21 06/29/23 release lisinopril 10 mg tablet 10 mg PO DAILY 06/26/23 06/29/23 trazodone 50 mg tablet 25 mg PO DAILY PRN Insomnia 06/29/23 06/29/23 Results & Data (ED) Vital Signs Vital Signs - 24 hr 06/29/23 11:03 06/29/23 13:15 06/29/23 15:33 Temperature 36.7 C Temperature Source Temporal Artery Scan Pulse Rate 58 L Pulse Rate [Left Finger] 52 L 55 L Pulse Rate from SpO2 Sensor Pulse Rhythm [Left Finger] Regular Pulse Strength [Left Finger] Normal Respiratory Rate 18 16 19 Respiratory Effort / Characteristics Non-Labored Spontaneous Non-Labored Spontaneous Non-Labored Respiratory Depth Normal Normal Normal Respiratory Pattern Regular Blood Pressure 191/91 H Blood Pressure [Right Arm] 150/78 H 183/93 H Blood Pressure Mean 124 Blood Pressure Mean [Right Arm] 102 123 Blood Pressure Position Sitting Pulse Oximetry 99 98 97 Oxygen Delivery Method Room Air Room Air Room Air Sepsis Recent Fever Within 48 Hours No Sepsis New/Unexplained Change in Mental Status No Sepsis Action Taken by Nursing No Action Required 06/29/23 16:46 06/29/23 16:50 06/29/23 17:00 Temperature Temperature Source Pulse Rate 54 L 59 L 56 L Pulse Rate [Left Finger] Pulse Rate from SpO2 Sensor 59 L 56 L Pulse Rhythm [Left Finger] Pulse Strength [Left Finger] Respiratory Rate 20 20 Respiratory Effort / Characteristics Respiratory Depth Respiratory Pattern Blood Pressure 196/81 H 189/88 H Blood Pressure [Right Arm] Blood Pressure Mean 114 136 Blood Pressure Mean [Right Arm] Blood Pressure Position Pulse Oximetry 100 100 Oxygen Delivery Method Room Air Room Air Sepsis Recent Fever Within 48 Hours Sepsis New/Unexplained Change in Mental Status Sepsis Action Taken by Nursing 06/29/23 17:09 06/29/23 17:48 06/29/23 18:00 Temperature Temperature Source Pulse Rate 60 64 Pulse Rate [Left Finger] 63 Pulse Rate from SpO2 Sensor 60 64 Pulse Rhythm [Left Finger] Pulse Strength [Left Finger] Respiratory Rate 18 21 Respiratory Effort / Characteristics Respiratory Depth Respiratory Pattern Blood Pressure 202/88 H 200/93 H Blood Pressure [Right Arm] 202/88 H Blood Pressure Mean 147 104 Blood Pressure Mean [Right Arm] 126 Blood Pressure Position Pulse Oximetry 96 99 Oxygen Delivery Method Room Air Sepsis Recent Fever Within 48 Hours Sepsis New/Unexplained Change in Mental Status Sepsis Action Taken by Nursing 06/29/23 18:09 06/29/23 18:30 Temperature Temperature Source Pulse Rate 67 68 Pulse Rate [Left Finger] Pulse Rate from SpO2 Sensor 66 68 Pulse Rhythm [Left Finger] Pulse Strength [Left Finger] Respiratory Rate 20 20 Respiratory Effort / Characteristics Respiratory Depth Respiratory Pattern Blood Pressure 193/96 H 198/86 H Blood Pressure [Right Arm] Blood Pressure Mean 112 107 Blood Pressure Mean [Right Arm] Blood Pressure Position Pulse Oximetry 96 98 Oxygen Delivery Method Room Air Room Air Sepsis Recent Fever Within 48 Hours Sepsis New/Unexplained Change in Mental Status Sepsis Action Taken by Nursing Laboratory Data 06/29/23 11:53 06/29/23 11:53 Lab Results 06/29/23 Range/Units 11:53 WBC 11.30 H (4.8-10.8) K/ul RBC 5.14 (4.20-5.40) M/uL Hgb 15.0 (12.0-16.0) g/dl Hct 43.8 (37.0-47.0) % MCV 85.2 (80.0-100.0) fL MCH 29.2 (25.0-34.0) pg MCHC 34.2 (32.0-36.0) g/dL RDW Std Deviation 40.1 (36.4-46.3) fL RDW Coeff of Javier 12.9 (11.5-14.5) % Plt Count 298 (130-400) K/uL MPV 9.4 (9.4-12.4) fL Immature Gran % (Auto) 0.4 % Neut % (Auto) 76.6 % Lymph % (Auto) 15.4 % Mchenry % (Auto) 5.5 % Eos % (Auto) 1.7 % Baso % (Auto) 0.4 % Neut # (Auto) 8.67 H (1.40-6.50) K/uL Lymph # (Auto) 1.74 (1.20-3.40) K/uL Mchenry # (Auto) 0.62 H (0.11-0.59) K/uL Eos # (Auto) 0.19 (0.00-0.50) K/uL Baso # (Auto) 0.04 (0.00-0.20) K/uL Immature Gran # (Auto) 0.04 (0.01-0.20) K/uL PT 10.3 (9.0-12.0) Seconds INR 0.9 (0.9-1.1) APTT 28.4 (21.0-31.0) Seconds PTT Ratio 1.0 Sodium 138 (136-145) mmol/L Potassium 3.8 (3.5-5.1) mmol/L Chloride 101 (98-107) mmol/L Carbon Dioxide 28 (21-32) mmol/L Anion Gap 9 (3-11) BUN 16 (6-23) mg/dl Creatinine 0.78 (0.6-1.2) mg/dl Est Cr Clr Drug Dosing 51.3 ml/min Est GFR ( Amer) 84.4 ml/min Est GFR (Non-Af Amer) 72.8 ml/min BUN/Creatinine Ratio 20.5 H (10-20) Glucose 89 (70-99(Fasting)) mg/dl Calcium 9.8 (8.6-10.3) mg/dl Total Bilirubin 0.8 (0.2-1.0) mg/dl AST 18 (13-39) U/L ALT 10 (7-52) U/L Alkaline Phosphatase 63 (34-104) U/L Troponin I High Sens 3.4 (0-14) pg/ml Total Protein 8.3 (6.0-8.3) gm/dl Albumin 4.8 (3.4-5.0) gm/dl Globulin 3.5 (2.5-4.0) gm/dl Albumin/Globulin Ratio 1.4 (0.9-2) Administered Medications Calcium/Vitamin D (Calcium 600mg + Vit D 400 Iu Tab) 1 tab PO BID KARLA Stop: 07/29/23 20:59 Last Admin: 06/29/23 21:49 Dose: 1 tab Documented By: CR Discontinued Medications Amlodipine Besylate (Amlodipine Besylate 5 Mg Tab) 5 mg PO NOW ONE Stop: 06/29/23 15:16 Last Admin: 06/29/23 15:32 Dose: 5 mg Documented By: [facility] Spironolactone (Spironolactone 12.5 Mg Tab) 12.5 mg PO NOW ONE Stop: 06/29/23 18:54 Last Admin: 06/29/23 20:44 Dose: 12.5 mg Documented By: HENNY Imaging Data Radiologist's Impression: Chest X-Ray 06/29/23 11:07 SINGLE VIEW CHEST CLINICAL HISTORY: Atypical chest pain. Dizziness. FINDINGS: A PA chest radiograph is compared to study dated 06/26/2023. The cardiomediastinal silhouette is unremarkable. Chronic interstitial thickening is similar to previous. The lungs and pleural spaces are clear. No pneumothorax is seen. The skeletal structures are osteopenic. There are chronic/healed right- sided rib fractures. Cholecystectomy clips are noted in the right upper quadrant. IMPRESSION: No active disease in the chest. ACT 112: Negative or not required by law. Electronically signed by: Reg Lambert M.D. 06/29/2023 11:28 AM Discharge Plan Visit Data Chief Complaint: Hypertension Stated Complaint: HIGH BP ED Provider: Melody Flores Discharge Problem: Hypertension, Lightheadedness Patient Disposition: Admitted As Inpatient Discharge Instructions Interventions: ED Discharge Assessment Last Done: 06/29/23 20:30
--- NOTE | 2023-06-29 18:24 | History & Physical Report ---
Date of Service June 29, 2023 Assessment & Plan (1) Resistant hypertension: Plan: 78 y/o female admitted due to symptomatic HTN -Headache and lightheadedness -Prev admission CT Head, MRI, MRA with no acute intracranial abnormality, no AVM/dissection/ or stenosis -Cr: 0.78 K:3.8 - Home medications Lisinopril 10 mg and hydrochlorothiazide 25 mg daily - No signs of end organ damage -Will admit to PCU/telemetry -S/p Amlodipine 5 mg -No BB indicated to bradycardia on ER -Spironolactone added on ER, patient with hx of low potassium -Hydralazine 2.5 mg IV q6H prn -Us Duplex renal artery ordered to rule out stenosis -Continue Lisinopril and HCTZ - (2) Osteoporosis: Plan: Continue home medications Plan Patient seen and examined, chart reviewed, case discussed with Art Meneses MD and I agree with the assessment and plan as above except as otherwise noted Labs and images reviewed Art is a 78yo F who presents for some mild lightheadedness and who on checking her blood pressure as an outpatient was over 200. She was referred for the management of severe hypertension with concern for some lightheadedness. He had recent hospitalization with dizzinessextensive evaluation at prior hospitalization. CT of the head, MRI, MRA MRI/MRI without evidence of acute intracranial abnormality and no AVM/dissection/hemodynamically significant stenoses were noted at that time. She has been clinically improved with some lightheadedness, but BP has been elevated on rechecks and prior to coming in today. At the time of her last hospitalization vertigo was suspected to be due to potential labyrinthitis. Vertiginous symptoms have not recurred. She has chronic hypertension on hydrochlorothiazide/lisinopril however she reports this has been poorly controlled since returning home. Her amitriptyline was discontinued for potential autonomic dysfunction, she has not noticed much of a change from this. She received amlodipine without benefit/improvement in the ER; beta-blockers not recommended due to intermittent bradycardia in the 50s. Art was seen at the bedside. She reports she has had some vague feeling of l ightheadedness but not like she was going to pass out. At that vertigo and room spinning she had experienced with her prior admission has completely resolved and has not recurred. She has however been very worried about her blood pressure, which was noted to be over 200 as outpatient today. She did receive a blood pressure pill, amlodipine, while in the ER this did not bring her down below 180. On recheck in room does decrease to 160, and then back to 180s. Patient endorses significant stress and anxiety. She reports her daughter over a decade and a half ago was killed by her daughters , and still lives with some anxiety and trauma from this. She has been caring for her granddaughter who is 3 years old at the time. She reports her granddaughter is now moved out and going to college and is doing extremely well, but with her daughters increasing independence she has increased stress and worry. She reports she knows that she must let her granddaughter develop independence, and she is doing very well and she is proud of her, but cannot help but worry because of what happened her daughter. Patient reports the amitriptyline did seem to help with this, but this was discontinued and was not tolerating this due to potential autonomic dysfunction. She was prescribed trazodone at 25 mg daily and while discussed that this was a very low dose and is generally very safe medication, she really does not feel comfortable taking this medication at any dose especially after looking at the side effects. She reports she has not had nightmares or night terrors, and with some history of orthostasis will defer alpha-oli at this time. Suspect she has baseline incompletely treated hypertension, but with a substantial stress burden contributing to this. Patient is very worried about her blood pressure and it being resistant to 3 medications. Will order renal artery dopplers to r/o MARIUSZ. If patient's blood pressure continues to be hypertensive as inpatient greater than 180 spironolactone likely a reasonable choice as she has been hypokalemic in the past. Beta-oli would have secondary benefit w comorbid anxiety but limited by resting bradycardia in the 50s while in the ER. Patient is very comfortable with the resident team, and would like to continue to follow TSH currently Kassy both for blood pressure and stress. Will think about SSRI treatment, is hesitant of this due to looking of side effects to amitriptyline. No focal neurologic symptoms including weakness, vision change, headache, numbness, tingling, or confusion at bedside indicate hypertensive emergency or acute CVA. History of Present Illness Primary Care Provider: Wong Navarrete DO Ailyn is a 78 y/o female with PMHx of HTN, hyperlipidemia and R-carotid aneurism s/p stent and coil at 2013 here after a BP at work of 212. Patient was d/c home on Wednesday after evaluation of vertigo and dizziness. She states that amitriptyline was discontinue on discharge. She refers that last night she had a headache before going to bed, only took ibuprofen and went to bed. She woke up this morning feeling better but at around 10 AM she began to feel tired and lightheaded. A colleague checked her blood pressure and found her systolic pressure at 212. She take Lisinopril 10 mg and hydrochlorothiazide 25 mg daily, she refers taking both this morning. She denied any weakness, chest pain, SOB, palpitation, abdominal pain, visual disturbances, nausea, diarrhea or any other symptoms. At the moment of evaluation she didn't had the headache but felt a little light headed. In the ER she received a dose of amlodipine without much improvement. No sign of end organ damage, CR 0.78. No neuro deficit noted on physical exam. Will Spironolactone added. No beta blockers recommended due to bradycardia in ER Allergies Allergy/AdvReac Type Severity Reaction Status Date / Time No Known Allergies Allergy Verified 06/29/23 17:02 Home Medications Medication Instructions Recorded Confirmed Type alendronate 70 mg tablet 70 mg PO WK 07/09/19 06/29/23 History calcium carbonate 600 mg-vitamin 1 cap PO BID 07/09/19 06/29/23 History D3 5 mcg (200 unit) capsule (Calcium 600 + D(3)) hydrochlorothiazide 25 mg tablet 25 mg PO QAM 07/09/19 06/29/23 History ibuprofen 200 mg tablet (Advil) 400 mg PO Q6H PRN fever/pain 02/16/21 06/29/23 History aspirin 325 mg tablet,delayed 325 mg PO DAILY 10/05/21 06/29/23 History release lisinopril 10 mg tablet 10 mg PO DAILY 06/26/23 06/29/23 History trazodone 50 mg tablet 25 mg PO DAILY PRN Insomnia 06/29/23 06/29/23 History Past Med/Surg History Medical History (Updated 06/29/23 @ 19:39 by Georgia Meneses MD) Vertigo Viral gastroenteritis Diarrhea Hypokalemia Nausea & vomiting Syncope and collapse Near syncope Influenza A Acute diverticulitis Abdominal pain Surgical History Hx of hysterectomy Hx of appendectomy Family History Other Family history non-contributory Social History Smoking Status: Never smoker Tobacco Type: Cigarettes Second Hand Exposure: No; Do You Dip or Chew Tobacco: No; Hx Alcohol Use: No Hx Substance Use: No Preferred Language: Khmer Communication Ability: Effective Manager Clinical Research Required: No Beliefs That Will Affect Care: None marital status: Current Living Situation: Alone current occupational status: retired Feels Safe at Home: Yes Assistive Devices: Glasses Review of Systems Review of Systems: as per HPI Physical Exam Constitutional: well developed and cooperative; no acute distress Eyes: PERRL, conjunctivae normal, anicteric sclerae ENMT: external ear and nose normal, oropharynx normal Neck: trachea midline, no thyromegaly Respiratory: normal respiratory effort, lungs clear to auscultation Cardiovascular: RRR, no murmur, no edema Gastrointestinal (Abdomen): normal bowel sounds, soft, nontender, no hepatosplenomegaly Musculoskeletal: no cyanosis or clubbing, extremities motor strength 5/5 Neurologic: PERRL, EOMI, accommodation nl, no face palsy, no dysarthria CN's II-XI intact bilaterally and awake Speech / Cognition: normal speech Motor/Sensory: normal movement Results & Data Results & Data Vital Signs (Past 12 Hours) Vital Signs Temp Pulse Pulse Resp BP BP Pulse Ox 06/29/23 17:48 63 18 202/88 H 96 06/29/23 16:46 54 L 06/29/23 15:33 55 L 19 183/93 H 97 06/29/23 13:15 52 L 16 150/78 H 98 06/29/23 11:03 36.7 C 58 L 18 191/91 H 99 O2 Del Method 06/29/23 17:48 06/29/23 16:46 06/29/23 15:33 Room Air 06/29/23 13:15 Room Air 06/29/23 11:03 Room Air Resident Activity Tracking Resident Involvement: Resident Care Provided Care Provided: Adult Hospital Medicine
[2023-06-29] MEDS ORDERED: SPIRONOLACTONE 12.5 MG TAB PO ONE (18:53)
[2023-06-29] MEDS ORDERED: IBUPROFEN 200 MG TAB PO PRN (20:30)
[2023-06-29] MEDS ORDERED: hydrALAZINE HCL 20 MG/ML VIAL IV PRN (20:30)
[2023-06-29] MEDS ORDERED: POLYETHYLENE (MIRALAX) 17 GM PACK PO PRN (20:30)
[2023-06-29] MEDS ORDERED: traZODone HCL 50 MG TAB PO PRN (20:30)
[2023-06-29] MEDS ORDERED: ACETAMINOPHEN 325 MG TAB PO PRN (20:30)
[2023-06-29] MEDS ORDERED: ONDANSETRON INJ 2 MG/ML 2 ML VIAL IV PRN (20:30)
[2023-06-29] MEDS: CALCIUM 600MG + VIT D 400 IU TAB PO SCH (21:49)
[2023-06-30 06:38] LABS: Hematocrit (blood only) 38.2 % (37.0-47.0); Mean Corpuscular Volume 85.1 fL (80.0-100.0); Mean Platelet Volume 9.3 fL (9.4-12.4); Platelet Count 269 K/uL (130-400); RDW Coefficient of Variation 12.9 % (11.5-14.5); RDW Standard Deviation 40.3 fL (36.4-46.3); Red Blood Count 4.49 M/uL (4.20-5.40); White Blood Count 13.02 K/ul (4.8-10.8)
[2023-06-30 06:58] LABS: Creatinine Clr Calc Pharmacy 62.8 ml/min; Est GFR (Non-African American) 80.2 ml/min; Magnesium 1.8 mg/dl (1.7-2.4); Phosphorus 4.2 mg/dl (2.5-4.9); Potassium 3.6 mmol/L (3.5-5.1)
--- NOTE | 2023-06-30 06:58 | Electrocardiogram Report ---
Test Reason : Blood Pressure : / mmHG Vent. Rate : 054 BPM Atrial Rate : 054 BPM P-R Int : 142 ms QRS Dur : 072 ms QT Int : 408 ms P-R-T Axes : 067 046 087 degrees QTc Int : 386 ms Sinus bradycardia Otherwise normal ECG When compared with ECG of 26-JUN-2023 16:50, No significant change was found Confirmed by Austin Issa ([id number]) on 06/29/2023 4:17:56 PM Referred By: Confirmed By:Vitor Issa
[2023-06-30] MEDS ORDERED: ENOXAPARIN INJ 40 MG/0.4 ML SYR SQ SCH (07:00)
--- NOTE | 2023-06-30 07:22 | Hospitalist Progress Note ---
Date of Service June 30, 2023 Assessment & Plan (1) Resistant hypertension: Plan: - (2) Osteoporosis: Plan: Continue home medications Plan 78 y/o female admitted due to symptomatic HTN/hypertensive urgency Symptomatic HTN/Hypertensive urgency -Headache and lightheadedness -Prev admission CT Head, MRI, MRA with no acute intracranial abnormality, no AVM/dissection/ or stenosis -Cr: 0.78 K:3.8 - Home medications Lisinopril 10 mg and hydrochlorothiazide 25 mg daily - No signs of end organ damage -Will admit to PCU/telemetry -S/p Amlodipine 5 mg -No BB indicated to bradycardia on ER -Spironolactone added on ER, patient with hx of low potassium -Hydralazine 2.5 mg IV q6H prn -Us Duplex renal artery ordered to rule out stenosis -Continue Lisinopril and HCTZFull code DVT prophylaxis: SCD now, Lovenox 40 mg SQ daily Diet: Heart healthy Dispo: PCU/Telemetry Admission and Anticipated Discharge Date Admission Date: June 29, 2023 Results & Data Results & Data Vital Signs (Past 12 Hours) Vital Signs Temp Pulse Pulse Resp BP BP Pulse Ox 06/30/23 03:20 37 C 71 18 107/70 95 06/29/23 22:47 75 06/29/23 22:20 37.7 C H 76 18 150/73 H 96 06/29/23 21:26 82 06/29/23 20:46 73 06/29/23 20:45 36.4 C L 81 16 192/80 H 97 06/29/23 20:45 06/29/23 20:45 76 19 175/83 H 99 O2 Del Method 06/30/23 03:20 Room Air 06/29/23 22:47 06/29/23 22:20 Room Air 06/29/23 21:26 06/29/23 20:46 06/29/23 20:45 Room Air 06/29/23 20:45 Room Air 06/29/23 20:45 Room Air
[2023-06-30] MEDS ORDERED: lisinopril 10 MG TAB PO SCH (09:00)
[2023-06-30] MEDS ORDERED: SPIRONOLACTONE 12.5 MG TAB PO ONE (09:00)
[2023-06-30] MEDS ORDERED: hydroCHLOROthiazide 25 MG TAB PO SCH (09:00)
[2023-06-30] MEDS ORDERED: ASPIRIN 325 MG ECTAB PO SCH (09:00)
[2023-06-30] MEDS: CALCIUM 600MG + VIT D 400 IU TAB PO SCH (09:02)
--- NOTE | 2023-06-30 09:38 | Ultrasound Report ---
US duplex renal artery HISTORY: 78 years-old Female Resistant HTN acute hypertension COMPARISON: CT 10/05/2021 TECHNIQUE: Multiple real-time sonography images of the renal vascular structures were obtained assess ing grayscale appearance, color and spectral flow FINDINGS: Normal waveforms in the abdominal aorta, peak systolic velocities measuring up to 81 cm/s. Resistive index of 0.82. Right kidney measures 9.5 cm in length. Normal waveforms within the right renal artery with patent ri ght renal vein. Left kidney measures 9.1 cm in length. Normal waveforms within the left renal artery with patent left renal vein. IMPRESSION: Normal exam. ACT 112: Negative or not required by law. The above report was generated using voice recognition software. It may contain grammatical, syntax o r spelling errors. Electronically signed by: Akira Nunes M.D. 06/30/2023 9:36 AM
--- NOTE | 2023-06-30 10:58 | Discharge Summary ---
Date of Service June 30, 2023 Admission HPI Per Admitting Provider Ailyn is a 78 y/o female with PMHx of HTN, hyperlipidemia and R-carotid aneurysm s/p stent and coil in 2013, presents here after a SBP at work of 212. Patient was d/c home on Wednesday after evaluation of vertigo and dizziness from recent ED visit. She states that amitriptyline was discontinue on discharge. She refers that last night she had a headache before going to bed, only took ibuprofen and went to bed. She woke up this morning feeling better but at around 10 AM she began to feel tired and lightheaded. A colleague checked her blood pressure and found her systolic pressure at 212. She takes Lisinopril 10 mg and hydrochlorothiazide 25 mg daily, she endorses taking both this morning. She denied any weakness, chest pain, SOB, palpitations, abdominal pain, visual disturbances, nausea, diarrhea or any other symptoms. At the moment of evaluation she didn't have a headache but felt a little lightheaded. In the ER she received a dose of amlodipine without much improvement. No sign of end organ damage, CR 0.78. No neuro deficit noted on physical exam. Will Spironolactone added. No beta blockers recommended due to bradycardia in ER. Admission Exam Per Admitting Provider Physical Exam Constitutional: well developed and cooperative; no acute distress Eyes: PERRL, conjunctivae normal, anicteric sclerae ENMT: external ear and nose normal, oropharynx normal Neck: trachea midline, no thyromegaly Respiratory: normal respiratory effort, lungs clear to auscultation Cardiovascular: RRR, no murmur, no edema Gastrointestinal (Abdomen): normal bowel sounds, soft, nontender, no hepatosplenomegaly Musculoskeletal: no cyanosis or clubbing, extremities motor strength 5/5 Neurologic: PERRL, EOMI, accommodation nl, no face palsy, no dysarthria CN's II-XI intact bilaterally and awake Speech / Cognition: normal speech Motor/Sensory: normal movement Principal Diagnosis hypertensive urgency Discharge Exam Constitutional WD/WN, vitals as above Respiratory normal respiratory effort, lungs clear to auscultation Cardiovascular RRR, no murmur, no edema Gastrointestinal (Abdomen) normal bowel sounds, soft, nontender, no hepatosplenomegaly Psychiatric A+Ox3, euthymic affect Discharge Data Allergies Allergy/AdvReac Type Severity Reaction Status Date / Time No Known Allergies Allergy Verified 06/29/23 17:02 Consultations 06/29/23 19:21 ED Decision to Admit Stat Ordered Studies 06/30/23 duplex renal artery Routine Hospital Course (1) Hypertensive urgency: (2) Lightheadedness: (3) Osteoporosis: Continue home medications Plan 78 y/o female admitted due to symptomatic HTN/hypertensive urgency call [facility] about f/u appt Symptomatic HTN/Hypertensive urgency -Headache and lightheadedness -Prev admission CT Head, MRI, MRA with no acute intracranial abnormality, no AVM/dissection/ or stenosis -Cr: 0.78 K:3.8 - Home medications: Lisinopril 10 mg and hydrochlorothiazide 25 mg daily - No signs of end organ damage -Will admit to PCU/telemetry -S/p Amlodipine 5 mg -No BB indicated to bradycardia on ER -Spironolactone added on ER, patient with hx of low potassium -Hydralazine 2.5 mg IV q6H prn -Us Duplex renal artery ordered to rule out stenosis -Continue Lisinopril and HCTZ Full code DVT prophylaxis: SCD now, Lovenox 40 mg SQ daily Diet: Heart healthy Dispo: Home Total Time Total Time Spent Total Time Spent (In Minutes): see attending attestation Discharge Plan Discharge Items Patient Disposition: Home - Self-Care Reason For Visit: HYPERTENSION URGENCY Discharge Diagnosis: hypertensive urgency, resolved Activity: Resume your previous activity Non-emergency contact: Primary Care Provider Call non-emergency contact if: you have any medication questions and you have a fever Follow-up/Referrals: Wong Navarrete DO [Primary Care Provider] - 07/12/23 3:05 pm Diet: Regular Addtl Attending Provider Instructions: You were admitted to the hospital for hypertensive urgency. You were treated with amlodipine, spironolactone, lisinopril, hydrochlorothiazide. A discharge summary will be sent to your primary care physician to ensure continuity of care. Please bring this discharge summary with you to your next office appointment so that your provider can review it at that time. Follow-up appointments: You have an appointment with Dr. Camarillo on 07/05/23 at 1:25 pm. If you are unable to make this appointment, or have any other questions, their office can be reached at [phone]. Keep all your follow-up appointments as already scheduled. If you cannot make an appointment, notify your provider. Medications: Your medication list has been reviewed and reconciled upon discharge to ensure accuracy and continuity of care. An updated list of all your medications is included with your hospital discharge paperwork. Please review this list closely, and make note of any changes. Take your medications as instructed; do not skip a dose of your medicines. Make sure all of your doctors know every medicine you are taking (including aozm-tfy-gmzsazw medicines, vitamins, and supplements). Call your primary care provider before taking any new medicines (including oifz-iqq-xaycnrq medicines, vitamins, and supplements), because some of these may interact with your current medications, or may make your symptoms worse. Tell your primary care provider if you cannot afford your medications. CONTACT YOUR PRIMARY CARE PROVIDER if you experience any of the following: Elevated BP readings with the systolic or "top" number > 150 mm Hg. Difficulty following your treatment plan, or difficulty taking medications CALL 911 OR GO TO THE EMERGENCY DEPARTMENT if you experience any of the following: Sudden, severe abdominal pain or nausea/vomiting Severe chest pain, or chest pain that radiates (moves) to your jaw or arm Sudden, severe shortness of breath or difficulty breathing Thank you for allowing us to participate in your care Pending Studies at Discharge: No Stand-Alone Forms: My [facility] [employer], Smoking Cessation Medications and DC Order Prescriptions: Continued alendronate 70 mg tablet 70 mg PO WK Rx Instructions: Take this medicne every Wednesday. hydrochlorothiazide 25 mg tablet 25 mg PO QAM Calcium 600 + D(3) 600 mg calcium- 200 unit Capsule 1 cap PO BID ibuprofen [Advil] 200 mg Tablet 400 mg PO Q6H PRN (Reason: fever/pain) lisinopril 10 mg tablet 10 mg PO DAILY trazodone 50 mg tablet 25 mg PO DAILY PRN (Reason: Insomnia) Rx Instructions: PER PT "DON'T WANT TO TRY, DON'T WANT TO TAKE". aspirin 325 mg Tablet,Delayed Release (Dr/Ec) 325 mg PO DAILY Discharge Orders: Discharge Order (Routine); Ordered 06/30/23 Ordered By: Austin Arellano Admission Data Admit Date/Time: 06/29/23 19:01 Attending Provider: Austin Millan Admit Provider: Georgia Osorio Primary Care Provider: Wong Navarrete Other Providers: Jaylon Bueno Other Interventions: Discharge Summary Assessment (RN) Last Done: 06/30/23 13:03 Supervising Physician Co-Signing Physician Notes Attending attestation Pt seen and examined in concert with Dr. Arellano. In agreement with the documented findings as noted in the resident documentation with any exceptions or additions as noted here. Resolution of presenting symptoms without new complaint. Chronic lightheadedness was briefly present when heat in room was ++ and resolved with temp change. On examination, S1/S2 nl RRR no MCG. CTAB. Abd NT/ND BS+ve VS: 109/72, 58, 17, 36.5C, 93% RA Data: hgb 13, bun 18, Cr 0.72 Hypertensive urgency - resolved following spironolactone and amlodipine in ED with borderline orthostasis. d/w PCP - will discharge on baseline regimen which she has tolerated well in the setting of h/o lightheadedness. Patient will monitor BP at home and with persistently elevated values over 150/90 will call office and can start amlodipine 2.5mg. Else see resident documentation as noted. Total attending physician time spent with this patient's care on the day of discharge: 35 minutes Resident Activity Tracking Resident Involvement: Resident Care Provided Care Provided: Adult Hospital Medicine
[2023-07-04] MEDS ORDERED: ALENDRONATE SODIUM 70 MG TAB PO SCH (06:30)
== END 2023-06-30 15:01 | disposition home or self-care (01) ==
LOC: ED 10:57 → EDINP 19:01 → INTOOBSV 19:01 → SUATTDRO 19:01 → 4W 20:30

== ENCOUNTER 2023-07-03 18:07 | Observation (INO) ==
[2023-07-03] MEDS ORDERED: MoRPHine SULFATE 4 MG/ML 1 ML CARP\\VIAL IV STA (18:29)
[2023-07-03] MEDS ORDERED: ONDANSETRON INJ 2 MG/ML 2 ML VIAL IV STA ×2 (18:29→19:54)
[2023-07-03] MEDS ORDERED: SODIUM CHLORIDE 0.9% 500 ML IV ONE (18:29)
--- NOTE | 2023-07-03 18:29 | ED Triage Note ---
Date of Service July 03, 2023 History of Present Illness This patient was briefly evaluated while in triage. An abbreviated physical exam was performed. This patient is a 78-year-old Female who presents to the ED for evaluation of constipation and lower abdominal pain. Abdominal pain comes and goes. She has nausea and dry heaves. No urinary symptoms. + history of diverticulosis. No history of abdominal surgeries. Physical Exam CONSTITUTIONAL: in no acute pain or distress, resting comfortably SKIN: pink, warm, dry CARDIAC: regular rate and rhythm RESPIRATORY: in no respiratory distress, lungs clear to auscultation ABDOMEN: tender in lower abdomen Initial orders for labs and / or imaging were placed and patient was placed in the waiting area until a bed is available. Please see further documentation for the full ED course.
[2023-07-03 19:59] LABS: Basophils # (auto) 0.06 K/uL (0.00-0.20); Basophils % (auto) 0.4 %; Eosinophils # (auto) 0.18 K/uL (0.00-0.50); Eosinophils % (auto) 1.3 %; Hematocrit (blood only) 41.5 % (37.0-47.0); Hemoglobin 13.8 g/dl (12.0-16.0); Immature Granulocytes # (auto) 0.05 K/uL (0.01-0.20); Immature Granulocytes % (auto) 0.4 %; Lymphocytes # (auto) 1.72 K/uL (1.20-3.40); Lymphocytes % (auto) 12.5 %; Mean Corpuscular Hemoglobin 29.1 pg (25.0-34.0); Mean Corpuscular Hgb Conc 33.3 g/dL (32.0-36.0); Mean Corpuscular Volume 87.4 fL (80.0-100.0); Mean Platelet Volume 9.2 fL (9.4-12.4); Monocytes # (auto) 0.82 K/uL (0.11-0.59); Neutrophils # (auto) 10.94 K/uL (1.40-6.50); Neutrophils % (auto) 79.4 %; Platelet Count 318 K/uL (130-400); RDW Coefficient of Variation 12.9 % (11.5-14.5); RDW Standard Deviation 41.2 fL (36.4-46.3); Red Blood Count 4.75 M/uL (4.20-5.40); White Blood Count 13.77 K/ul (4.8-10.8)
[2023-07-03 20:02] LABS: iSTAT Creatinine 0.6 mg/dl (0.6-1.3); iSTAT Hemoglobin 13.9 g/dl (12.0-16.0); iSTAT Ionized Calcium 1.09 mmol/l (1.12-1.32); iSTAT Potassium 3.6 mmol/L (3.3-5.0)
[2023-07-03] MEDS: HYDROmorphone INJ 0.5 MG/0.5 ML SYR IV PRN ×2 (20:05→21:01)
[2023-07-03] MEDS ORDERED: OPTIRAY 320 500ml IV ONE (20:16)
[2023-07-03 20:17] LABS: Alanine Aminotransferase 9 U/L (7-52); Albumin Globulin Ratio 1.3 (0.9-2); Albumin Level 3.9 gm/dl (3.4-5.0); Alkaline Phosphatase 67 U/L (34-104); Anion Gap 9 (3-11); Aspartate Aminotransferase 15 U/L (13-39); BUN Creatinine Ratio 25.7 (10-20); Bilirubin,Total 0.5 mg/dl (0.2-1.0); Blood Urea Nitrogen 18 mg/dl (6-23); Calcium 8.8 mg/dl (8.6-10.3); Carbon Dioxide 24 mmol/L (21-32); Chloride 105 mmol/L (98-107); Est GFR (African American) 96.2 ml/min; Glucose 100 mg/dl (70-99(Fasting)); Lipase 25 U/L (11-82); Potassium 3.6 mmol/L (3.5-5.1); Sodium 138 mmol/L (136-145); Total Protein 6.9 gm/dl (6.0-8.3)
[2023-07-03 21:48] LABS: Appearance Urine Clear (Clear); Bacteria Urine Automated Negative (Negative); Bilirubin Urine Negative (Negative); Blood Urine 1+ (Negative); Color Urine Yellow; Glucose Urine UA Negative (Negative); Ketones Urine Negative (Negative); Leukocyte Esterase Urine Negative (Negative); Nitrite Urine Negative (Negative); Protein Urine Negative (Negative); Specific Gravity Urine > 1.045 (1.000-1.030); Urobilinogen Urine Negative (Negative); pH Urine 5.5 (4.5-7.5)
--- NOTE | 2023-07-03 22:10 | CT Scan Report ---
Exam(s): CT ABDOMEN + PELVIS With Contrast IV Amt: 82ml EXAM: CT Abdomen and Pelvis With Intravenous Contrast CLINICAL HISTORY: Reason for exam: lower abdominal pain with constipation x 4 days.. TECHNIQUE: Axial computed tomography images of the abdomen and pelvis with intravenous contrast. CTDI is 20.71 mGy and DLP is 1052.3 mGy-cm. Automated exposure control was utilized for the study. A dose lowering technique was utilized adhering to the principles of ALARA. CONTRAST: Patient received 82ml of IV contrast COMPARISON: No relevant prior studies available. FINDINGS: Lung bases: Unremarkable. No mass. No consolidation. ABDOMEN: Liver: Hepatic steatosis. Gallbladder and bile ducts: Cholecystectomy. No ductal dilation. Pancreas: Unremarkable. No mass. No ductal dilation. Spleen: Unremarkable. No splenomegaly. Adrenals: Unremarkable. No mass. Kidneys and ureters: Unremarkable. No hydronephrosis or delayed nephrogram. Stomach and bowel: Moderate fecal retention, correlate for constipation. Mild wall thickening of the sigmoid colon with pericolonic fat stranding, concerning for mild stercoral colitis. No obstruction. PELVIS: Appendix: Appendectomy. Bladder: Decompressed urinary bladder. Reproductive: Unremarkable as visualized. ABDOMEN and PELVIS: Intraperitoneal space: Unremarkable. No free air. No significant fluid collection. Bones/joints: Degenerative changes of the spine. No acute fracture. No dislocation. Soft tissues: Unremarkable. Vasculature: Atherosclerotic changes of the aorta. No abdominal aortic aneurysm. Lymph nodes: Unremarkable. No enlarged lymph nodes. IMPRESSION: Moderate fecal retention, correlate for constipation. Mild wall thickening of the sigmoid colon with pericolonic fat stranding, concerning for mild stercoral colitis. Electronically signed by: Jorge Last MD 07/03/23 22:09 PM
--- NOTE | 2023-07-03 22:31 | History & Physical Report ---
Date of Service July 03, 2023 Assessment & Plan (1) Constipation: Plan: -Likely source of her abdominal pain -CTAP currently does not suggest acute bowel obstruction -Maintenance IVF ordered -Clear liquid diet for now, advance as tolerated -Aggressive bowel regimen ordered -Miralax TID -Senna daily -Colace BID -Magnesium citrate x1 ordered on admission -Dulcolax x1 ordered on admission -Pt would like to avoid manual disimpaction for now but is amenable if above fails -Pain control- scheduled Tylenol, Toradol PRN. Will avoid further opioids for now (2) Stercoral colitis: Plan: -CTAP suggesting mild sigmoid stercoral colitis -Pt does report subjective fever/chills and has mild leukocytosis 13.8. Will check CRP and PCT with AM labs -Deferring antibiotics for now -Bowel regimen as above (3) Hematochezia: Plan: -Reported incident of very mild BRBPR on 07/03 likely from straining -Stable Hgb at present -Continue to monitor (4) S/P cerebral aneurysm operation: Plan: -Continue aspirin 325 mg daily (5) Hypertension: Plan: -BP stable -Continue HCTZ/lisinopril Plan FENGI: Clear liquids Code status: Full DVT prophylaxis: SCDs. Deferring chemoprophylaxis for now given report of earlier BRBPR and pt already being on aspirin 325 mg daily Isolation: None Unit: Medical/surgical Disposition planning: Likely home History of Present Illness Chief Complaint: Abdominal pain, constipation Primary Care Provider: Wong Navarrete DO Pt is 78 yo F with PMH HTN w/ recent admission 06/29-06/30 for hypertensive urgency, cerebral aneurysm s/p repair w/ coiling in 2013, previous SBO w/ multiple abdominal surgeries presenting with abdominal pain. Pt reports ongoing mild abdominal pain for weeks which has started to acutely worsen over past few days. Notes last normal BM was on 06/26, did have BM on 06/30 though with minimal, fragmented, hard stool. Did have a similar BM today and noticed slight BRBPR in toilet bowl afterward. Pt reports frequent tenesmus since day prior with worsening abdominal pain- wrapping around LLQ/center/RLQ, / severity, dull. She is passing flatus normally but having reduced appetite to solids, though hydrating well. Has also been having subjective fevers/chills over past day. Pt arrived to ER hemodynamically stable. Initial evaluation significant for WBC 13.8, no other lab abnormality. CTAP demonstrating moderate fecal retention and possible mild sigmoid stercoral colitis. ER interventions include Zofran 4 mg IV x2, morphine 4 mg IV, 500 NSS bolus, Dilaudid 0.5 mg IV x2, Toradol 15 mg IV x1. At present, pt reports no new complaints. Allergies Allergy/AdvReac Type Severity Reaction Status Date / Time No Known Allergies Allergy Verified 07/03/23 20:11 Home Medications Medication Instructions Recorded Confirmed Type alendronate 70 mg tablet 70 mg PO WK 07/09/19 07/03/23 History calcium carbonate 600 mg-vitamin 1 cap PO BID 07/09/19 07/03/23 History D3 5 mcg (200 unit) capsule (Calcium 600 + D(3)) hydrochlorothiazide 25 mg tablet 25 mg PO QAM 07/09/19 07/03/23 History ibuprofen 200 mg tablet (Advil) 400 mg PO Q6H PRN fever/pain 02/16/21 07/03/23 History aspirin 325 mg tablet,delayed 325 mg PO DAILY 10/05/21 07/03/23 History release lisinopril 10 mg tablet 10 mg PO DAILY 06/26/23 07/03/23 History trazodone 50 mg tablet 25 mg PO DAILY PRN Insomnia 06/29/23 07/03/23 History Past Med/Surg History Medical History Vertigo Viral gastroenteritis Diarrhea Hypokalemia Nausea & vomiting Syncope and collapse Near syncope Influenza A Acute diverticulitis Abdominal pain Surgical History Hx of hysterectomy Hx of appendectomy Family History Other Family history non-contributory Social History Smoking Status: Former smoker Tobacco Type: Cigarettes Smoking End Date: 1999; Second Hand Exposure: No; Do You Dip or Chew Tobacco: No; Hx Alcohol Use: No Hx Substance Use: No Preferred Language: Persian Communication Ability: Effective Pharm Spec Required: No Beliefs That Will Affect Care: None marital status: Current Living Situation: Alone current occupational status: retired Feels Safe at Home: Yes Safety Concerns: Feels Safe At This Time Assistive Devices: Glasses Review of Systems Review of Systems: Per HPI/Subjective Physical Exam Physical Exam: General: uncomfortable-appearing, no acute distress HEENT: PERRL, EOMI, conjunctivae clear without injection, anicteric sclerae, moist mucous membranes, clear oropharynx without exudate or erythema Neck: supple, trachea midline, no thyromegaly, no JVD, no cervical lymphadenopathy CV: RRR, normal S1 and S2, no murmurs Resp: CTAB, no increased work of breathing, no crackles or wheezes Abd: Soft, diffusely tender from LLQ to RLQ in band-like pattern, distended, no guarding or rebound, no hepatosplenomegaly, not tympanitic to percussion, normal bowel sounds MSK: Normal bulk of all four extremities Neuro: AOx3, no focal motor or sensory deficits Skin: no rashes or lesions, warm and dry Ext: no LE peripheral edema or erythema, capillary refill <2s in all four extre mities, 2+ LE peripheral pulses b/l Results & Data Results & Data Vital Signs (Past 12 Hours) Vital Signs Temp Pulse Resp BP Pulse Ox O2 Del Method 07/03/23 21:32 155/78 H 07/03/23 21:32 66 19 94 07/03/23 19:59 59 L 07/03/23 18:21 36.7 C 56 L 22 149/60 H 98 Room Air Supervising Physician Co-Signing Physician Notes Patient seen and examined, chart reviewed, case discussed with Dr. Childs and I agree with the assessment and plan as above. In brief, patient is a 78yo female presenting with severe abdominal pain, constipation, nausea. On exam she is resting comfortably, NAD Skin - intact HEENT - MMM, Neck supple Heart - +S1/S2, regular, no m/r/g Lungs - CTA Abd - +BS, soft, mildly tender diffusely with no rebound/guarding, mildly diminished bowel sounds Ext - warm, well perfused Labs and images reviewed Assessment/Plan -Aggressive bowel regimen as above with Miralax, Senna, Colace, Magnesium citrate and DUlcolax -Pain control -REmainder as above Resident Activity Tracking Resident Involvement: Resident Care Provided Care Provided: [facility]
[2023-07-03] MEDS ORDERED: KETOROLAC TROMETHAMINE 15 MG/ML VIAL IV ONE (22:38)
[2023-07-03] MEDS ORDERED: LACTATED RINGER'S 1,000 ML IV SCH (23:30)
[2023-07-04 00:05] LABS: Phosphorus 3.6 mg/dl (2.5-4.9)
[2023-07-04] MEDS ORDERED: ONDANSETRON INJ 2 MG/ML 2 ML VIAL IV PRN (01:00)
[2023-07-04] MEDS ORDERED: KETOROLAC TROMETHAMINE 15 MG/ML VIAL IV PRN (01:00)
[2023-07-04] MEDS ORDERED: MAGNESIUM HYDROXIDE SUSP 30 ML UDC PO PRN (01:00)
[2023-07-04] MEDS ORDERED: MAGNESIUM CITRATE 296 ML/BTL PO STA (01:00)
[2023-07-04] MEDS ORDERED: bisacodyL 10 MG SUPP PR STA (01:00)
[2023-07-04] MEDS ORDERED: ACETAMINOPHEN 500 MG TAB PO STA (01:20)
[2023-07-04] MEDS: LACTATED RINGER'S 1,000 ML IV SCH ×2 (01:23→08:59)
[2023-07-04] MEDS ORDERED: ACETAMINOPHEN 1,000 MG/100 ML VIAL IV PRN (01:53)
--- NOTE | 2023-07-04 03:40 | Emergency Department Note ---
Impression & Plan Stercoral colitis, Constipation, Abdominal pain ED Provider Note NAME: SEJAL PARSONS AGE: 78 SEX: Female INFORMANT: Patient ED PROVIDER(S): Filipe Ontiveros MD CHIEF COMPLAINT: Abdominal pain PLAN: Disposition: Admitted Outpatient prescription management: None Referral: None MEDICAL DECISION MAKING: Patient presented because of abdominal pain. She was concerned about obstruction. She was tender diffusely. Patient had a leukocytosis on CBC. Chemistry panel was consistent with mild dehydration. Patient had some trace blood but no signs of infection on urinalysis. Patient underwent CT imaging and she was found to have stercoral colitis as well as severe constipation. No rectal impaction. Patient will need a bowel cleanout and careful management in the hospital given the pain requirements. She did receive a dose of IV Dilaudid and Zofran and did feel somewhat better with this. Consultation was made with Dr. Da Silva of internal medicine. Patient was evaluated in the ER and admitted for further management. Care/management discussed with: Discussed with territory sales manager Level of care consideration(s): After review of the information above and other included data, I feel the patient requires escalation of care to admission. Triage Nursing notes: reviewed and agree them. Vital Signs: reviewed and remarkable for no significant abnormalities Additional History obtained from: none Chronic Medical/Social Conditions affecting care: Hypertension Prior/ Outside/ External records reviewed: none Differential Diagnosis: Renal colic, UTI, appendicitis, diverticulitis, mesenteric ischemia, aortic pathology, infections, inflammatory bowel disease, PUD, biliary pathology, as well as other pathologies. Obstruction, Diagnostics, independently interpreted by me: ECG: none Cardiac Monitoring: Cardiac monitoring ordered by me: The patient was placed on continuous cardiac monitoring and observed. It revealed a normal sinus rhythm at 60 beats per minute without ectopy or evidence of dysrhythmia. Medical decision rules: none Imaging studies: CT scan of the abdomen pelvis reveals severe constipation. No clear evidence of obstruction. Stercoral colitis present. HPI: 78 year old Female arrives for evaluation of abdominal pain. This started over the last few days. Patient has not had a bowel movement last 4 days. She is concerned that she has a history of obstruction. She did have nausea and dry heaves. Patient found no relieving factors. She rates her pain as an 8 out of 10.. Pt denies LOC, headache, fevers, chills, diaphoresis, visual changes, neck pain, chest pain, breathing difficulties, back pain, melena, hematochezia, urinary symptoms, numbness, weakness, lymphadenopathy, rash, or other complaints.. PAST MEDICAL HISTORY: See Below, hypertension, obstruction PAST SURGICAL HISTORY: See Below, appendectomy, cholecystectomy, hysterectomy SOCIAL HISTORY: See Below, retired HOME MEDICATIONS: See Below ALLERGIES: See Below VITALS: See Below PHYSICAL EXAMINATION: GENERAL: Awake, alert, well-appearing, in no distress HENT: Normocephalic, atraumatic. Oropharynx unremarkable. EYES: Normal conjunctiva. Sclera non-icteric. NECK: Inspection normal. Non-tender. Supple. No nuchal rigidity. FROM. No masses. RESPIRATORY: Clear to auscultation. No wheezes. No rales. Normal respiratory effort. CARDIAC: Normal rate. Normal rhythm. No murmurs. No rubs. Extremities warm and well perfused. Pulses equal. No JVD. GI: Soft, non-distended. Diffuse tenderness to palpation. No rebound but mild guarding. No masses. RECTAL: Deferred. MUSCULOSKELETAL: Atraumatic. Chest examination reveals no tenderness. The back is symmetrical on inspection without obvious abnormality. There is no CVA tenderness to palpation. No joint edema. LOWER EXTREMITIES: Calves are equal size bilaterally and non-tender. No edema. No discoloration. NEURO: Normal sensorium. No sensory or motor deficits noted. SKIN: No rash or jaundice noted. PROCEDURES: none CRITICAL CARE: none OBSERVATION NOTE: none Past Med/Surg History Medical History Vertigo Viral gastroenteritis Diarrhea Hypokalemia Nausea & vomiting Syncope and collapse Near syncope Influenza A Acute diverticulitis Abdominal pain Surgical History Hx of hysterectomy Hx of appendectomy Family History Other Family history non-contributory Social History Smoking Status: Former smoker Tobacco Type: Cigarettes Smoking End Date: 1999; Second Hand Exposure: No; Do You Dip or Chew Tobacco: No; Hx Alcohol Use: No Hx Substance Use: No Preferred Language: Cymro Communication Ability: Effective Water Control Supervisor Required: No Beliefs That Will Affect Care: None marital status: Current Living Situation: Alone current occupational status: retired Feels Safe at Home: Yes Safety Concerns: Feels Safe At This Time Assistive Devices: Glasses Allergies Allergies Allergy/AdvReac Type Severity Reaction Status Date / Time No Known Allergies Allergy Verified 07/03/23 20:11 Home Meds Home Medications Medication Instructions Recorded Confirmed alendronate 70 mg tablet 70 mg PO WK 07/09/19 07/03/23 calcium carbonate 600 mg-vitamin 1 cap PO BID 07/09/19 07/03/23 D3 5 mcg (200 unit) capsule (Calcium 600 + D(3)) hydrochlorothiazide 25 mg tablet 25 mg PO QAM 07/09/19 07/03/23 ibuprofen 200 mg tablet (Advil) 400 mg PO Q6H PRN fever/pain 02/16/21 07/03/23 aspirin 325 mg tablet,delayed 325 mg PO DAILY 10/05/21 07/03/23 release lisinopril 10 mg tablet 10 mg PO DAILY 06/26/23 07/03/23 trazodone 50 mg tablet 25 mg PO DAILY PRN Insomnia 06/29/23 07/03/23 Results & Data (ED) Vital Signs Vital Signs - 24 hr 07/03/23 18:21 07/03/23 19:59 07/03/23 21:32 Temperature 36.7 C Temperature Source Temporal Artery Scan Pulse Rate 56 L 59 L 66 Pulse Rate from SpO2 Sensor 64 Respiratory Rate 22 19 Blood Pressure 149/60 H Blood Pressure Mean 89 Pulse Oximetry 98 94 Oxygen Delivery Method Room Air Sepsis Recent Fever Within 48 Hours No Sepsis New/Unexplained Change in Mental Status N/A Sepsis Action Taken by Nursing No Action Required 07/03/23 21:32 07/03/23 22:31 07/03/23 22:31 Temperature Temperature Source Pulse Rate 62 Pulse Rate from SpO2 Sensor 61 Respiratory Rate 17 Blood Pressure 155/78 H 151/72 H Blood Pressure Mean 111 100 Pulse Oximetry 97 Oxygen Delivery Method Sepsis Recent Fever Within 48 Hours Sepsis New/Unexplained Change in Mental Status Sepsis Action Taken by Nursing Laboratory Data 07/03/23 19:34 07/03/23 19:34 Lab Results 07/03/23 07/03/23 07/03/23 Range/Units 19:34 19:48 21:32 WBC 13.77 H (4.8-10.8) K/ul RBC 4.75 (4.20-5.40) M/uL Hgb 13.8 (12.0-16.0) g/dl POC Hgb 13.9 (12.0-16.0) g/dl Hct 41.5 (37.0-47.0) % POC Hct 41 (37-47) % MCV 87.4 (80.0-100.0) fL MCH 29.1 (25.0-34.0) pg MCHC 33.3 (32.0-36.0) g/dL RDW Std Deviation 41.2 (36.4-46.3) fL RDW Coeff of Javier 12.9 (11.5-14.5) % Plt Count 318 (130-400) K/uL MPV 9.2 L (9.4-12.4) fL Immature Gran % (Auto) 0.4 % Neut % (Auto) 79.4 % Lymph % (Auto) 12.5 % Banner % (Auto) 6.0 % Eos % (Auto) 1.3 % Baso % (Auto) 0.4 % Neut # (Auto) 10.94 H (1.40-6.50) K/uL Lymph # (Auto) 1.72 (1.20-3.40) K/uL Banner # (Auto) 0.82 H (0.11-0.59) K/uL Eos # (Auto) 0.18 (0.00-0.50) K/uL Baso # (Auto) 0.06 (0.00-0.20) K/uL Immature Gran # (Auto) 0.05 (0.01-0.20) K/uL POC Sodium 140 (135-144) mmol/L Sodium 138 (136-145) mmol/L POC Potassium 3.6 (3.3-5.0) mmol/L Potassium 3.6 (3.5-5.1) mmol/L POC Chloride 104 (101-112) mmol/L Chloride 105 (98-107) mmol/L Carbon Dioxide 24 (21-32) mmol/L POC Total CO2 23 L (24-31) mmol/L Anion Gap 9 (3-11) POC Anion Gap 17.0 (16-25) mmol/L POC BUN 17 (7-18) mg/dl BUN 18 (6-23) mg/dl Creatinine 0.70 (0.6-1.2) mg/dl POC Creatinine 0.6 (0.6-1.3) mg/dl Est Cr Clr Drug Dosing Not Reportable Est GFR ( Amer) 96.2 ml/min Est GFR (Non-Af Amer) 83.0 ml/min BUN/Creatinine Ratio 25.7 H (10-20) Glucose 100 H (70-99(Fasting)) mg/dl POC Glucose (other) 106 H (70-99) mg/dl Calcium 8.8 (8.6-10.3) mg/dl POC Ioniz Calcium Yolanda 1.09 L (1.12-1.32) mmol/l Phosphorus 3.6 (2.5-4.9) mg/dl Magnesium 2.0 (1.7-2.4) mg/dl Total Bilirubin 0.5 (0.2-1.0) mg/dl AST 15 (13-39) U/L ALT 9 (7-52) U/L Alkaline Phosphatase 67 (34-104) U/L Total Protein 6.9 (6.0-8.3) gm/dl Albumin 3.9 (3.4-5.0) gm/dl Globulin 3.0 (2.5-4.0) gm/dl Albumin/Globulin Ratio 1.3 (0.9-2) Lipase 25 (11-82) U/L Urine Color Yellow Urine Appearance Clear (Clear) Urine pH 5.5 (4.5-7.5) Ur Specific [place] > 1.045 H (1.000-1.030) Urine Protein Negative (Negative) Urine Glucose (UA) Negative (Negative) Urine Ketones Negative (Negative) Urine Blood 1+ H (Negative) Urine Nitrite Negative (Negative) Urine Bilirubin Negative (Negative) Urine Urobilinogen Negative (Negative) Ur Leukocyte Esterase Negative (Negative) Urine WBC (Auto) 1-5 (0-5) /hpf Urine RBC (Auto) 5-10 H (0-4) /hpf U Hyaline Cast (Auto) 1-5 (0-5) /lpf U Epithel Cells (Auto) 5-10 H (0-5) /lpf Urine Bacteria (Auto) Negative (Negative) Administered Medications Lactated Ringer's (Lr) 1,000 mls @ 125 mls/hr IV .Q8H KARLA Stop: 07/04/23 16:59 Last Admin: 07/04/23 01:23 Dose: 125 mls/hr Documented By: DAMIR Acetaminophen (Ofirmev) 1,000 mg in 100 mls @ 400 mls/hr IV Q8H PRN PRN Reason: pain- 1st line Stop: 07/07/23 01:52 Last Infusion: 07/04/23 02:52 Dose: Infused Documented By: Admin: 07/04/23 02:06 Dose: 400 mls/hr Documented By: BOBY Ondansetron HCl (Ondansetron Inj 2 Mg/Ml 2 Ml Vial) 4 mg IV Q6H PRN PRN Reason: Nausea Stop: 08/03/23 00:59 Last Admin: 07/04/23 01:41 Dose: 4 mg Documented By: BOBY Discontinued Medications Acetaminophen (Acetaminophen 500 Mg Tab) 1,000 mg PO NOW STA Stop: 07/04/23 01:21 Last Admin: 07/04/23 01:40 Dose: Not Given Documented By: BOBY Bisacodyl (Bisacodyl 10 Mg Supp) 10 mg NV NOW STA Stop: 07/04/23 01:01 Last Admin: 07/04/23 01:40 Dose: Not Given Documented By: BOBY Hydromorphone HCl (Hydromorphone Inj 0.5 Mg/0.5 Ml Syr) 0.5 mg IV Q15M PRN PRN Reason: Pain Stop: 07/17/23 19:53 Last Admin: 07/03/23 21:01 Dose: 0.5 mg Documented By: FemiGV Admin: 07/03/23 20:05 Dose: 0.5 mg Documented By: FemiGPerfecto Sodium Chloride (Nss) 500 mls @ 999 mls/hr IV .Q31M ONE Stop: 07/03/23 18:59 Last Infusion: 07/03/23 21:02 Dose: Infused Documented By: Admin: 07/03/23 19:06 Dose: 999 mls/hr Documented By: Lactated Ringer's (Lr) 1,000 mls @ 125 mls/hr IV .Q8H KARLA Stop: 07/04/23 07:29 Last Infusion: 07/04/23 01:23 Dose: Infused Documented By: Admin: 07/04/23 01:13 Dose: 125 mls/hr Documented By: BOBY Ioversol (Optiray 320 500ml) 82 ml IV ONCE ONE Stop: 07/03/23 20:17 Last Admin: 07/03/23 20:16 Dose: 82 ml Documented By: JEFFY Ketorolac Tromethamine (Ketorolac Tromethamine 15 Mg/Ml Vial) 15 mg IV NOW ONE Stop: 07/03/23 22:39 Last Admin: 07/03/23 22:49 Dose: 15 mg Documented By: QGV Magnesium Citrate (Magnesium Citrate 296 Ml/Btl) 296 ml PO NOW STA Stop: 07/04/23 01:01 Last Admin: 07/04/23 01:40 Dose: 296 ml Documented By: BOBY Morphine Sulfate (Morphine Sulfate 4 Mg/Ml 1 Ml Carp\Vial) 4 mg IV NOW STA Stop: 07/03/23 18:30 Last Admin: 07/03/23 19:05 Dose: 4 mg Documented By: Ondansetron HCl (Ondansetron Inj 2 Mg/Ml 2 Ml Vial) 4 mg IV NOW STA Stop: 07/03/23 18:30 Last Admin: 07/03/23 19:05 Dose: 4 mg Documented By: Ondansetron HCl (Ondansetron Inj 2 Mg/Ml 2 Ml Vial) 4 mg IV NOW STA Stop: 07/03/23 19:55 Last Admin: 07/03/23 20:06 Dose: 4 mg Documented By: QGV Imaging Data Radiologist's Impression: Abdomen/Pelvis CT 07/03/23 18:29 Exam(s): CT ABDOMEN + PELVIS With Contrast IV Amt: 82ml EXAM: CT Abdomen and Pelvis With Intravenous Contrast CLINICAL HISTORY: Reason for exam: lower abdominal pain with constipation x 4 days.. TECHNIQUE: Axial computed tomography images of the abdomen and pelvis with intravenous contrast. CTDI is 20.71 mGy and DLP is 1052.3 mGy-cm. Automated exposure control was utilized for the study. A dose lowering technique was utilized adhering to the principles of ALARA. CONTRAST: Patient received 82ml of IV contrast COMPARISON: No relevant prior studies available. FINDINGS: Lung bases: Unremarkable. No mass. No consolidation. ABDOMEN: Liver: Hepatic steatosis. Gallbladder and bile ducts: Cholecystectomy. No ductal dilation. Pancreas: Unremarkable. No mass. No ductal dilation. Spleen: Unremarkable. No splenomegaly. Adrenals: Unremarkable. No mass. Kidneys and ureters: Unremarkable. No hydronephrosis or delayed nephrogram. Stomach and bowel: Moderate fecal retention, correlate for constipation. Mild wall thickening of the sigmoid colon with pericolonic fat stranding, concerning for mild stercoral colitis. No obstruction. PELVIS: Appendix: Appendectomy. Bladder: Decompressed urinary bladder. Reproductive: Unremarkable as visualized. ABDOMEN and PELVIS: Intraperitoneal space: Unremarkable. No free air. No significant fluid collection. Bones/joints: Degenerative changes of the spine. No acute fracture. No dislocation. Soft tissues: Unremarkable. Vasculature: Atherosclerotic changes of the aorta. No abdominal aortic aneurysm. Lymph nodes: Unremarkable. No enlarged lymph nodes. IMPRESSION: Moderate fecal retention, correlate for constipation. Mild wall thickening of the sigmoid colon with pericolonic fat stranding, concerning for mild stercoral colitis. Electronically signed by: Jorge Last MD 07/03/23 22:09 PM Discharge Plan Visit Data Chief Complaint: Abdominal Pain Stated Complaint: SEVERE ABDOMINAL PAIN, CONSTIPATION, WEAKNESS ED Provider: Filipe Ontiveros Discharge Problem: Stercoral colitis, Constipation, Abdominal pain Patient Disposition: Admitted As Inpatient Discharge Instructions Interventions: ED Discharge Assessment Last Done: 07/04/23 00:18
--- NOTE | 2023-07-04 03:46 | Billing Data ---
Date of Service July 03, 2023 Coding Level of Care Code 20747 INT INP/OBS CARE
--- NOTE | 2023-07-04 06:42 | Hospitalist Progress Note ---
Date of Service July 04, 2023 Assessment & Plan Plan (1) Constipation: Plan: -Likely source of her abdominal pain -CTAP currently does not suggest acute bowel obstruction -Maintenance IVF ordered -Clear liquid diet for now, advance as tolerated -Aggressive bowel regimen ordered -Miralax TID -Senna daily -Colace BID -Magnesium citrate x1 ordered on admission -Dulcolax x1 ordered on admission -Pt would like to avoid manual disimpaction for now but is amenable if above fails -Pain control- scheduled Tylenol, Toradol PRN. Will avoid further opioids for now (2) Stercoral colitis: Plan: -CTAP suggesting mild sigmoid stercoral colitis -Pt does report subjective fever/chills and has mild leukocytosis 13.8. Will check CRP and PCT with AM labs -Deferring antibiotics for now -Bowel regimen as above (3) Hematochezia: Plan: -Reported incident of very mild BRBPR on 07/03 likely from straining -Stable Hgb at present -Continue to monitor (4) S/P cerebral aneurysm operation: Plan: -Continue aspirin 325 mg daily (5) Hypertension: Plan: -BP stable -Continue HCTZ/lisinopril Plan FENGI: Clear liquids Code status: Full DVT prophylaxis: SCDs. Deferring chemoprophylaxis for now given report of earlier BRBPR and pt already being on aspirin 325 mg daily Isolation: None Unit: Medical/surgical Disposition planning: Likely home Admission and Anticipated Discharge Date Admission Date: July 03, 2023 Subjective Chief Complaint: Abdominal pain, constipation Primary Care Provider: Wong Navarrete DO Pt is 78 yo F with PMH HTN w/ recent admission 06/29-06/30 for hypertensive urgency, cerebral aneurysm s/p repair w/ coiling in 2013, previous SBO w/ multiple abdominal surgeries presenting with abdominal pain. Pt reports ongoing mild abdominal pain for weeks which has started to acutely worsen over past few days. Notes last normal BM was on 06/26, did have BM on 06/30 though with minimal, fragmented, hard stool. Did have a similar BM today and noticed slight BRBPR in toilet bowl afterward. Pt reports frequent tenesmus since day prior with worsening abdominal pain- wrapping around LLQ/center/RLQ, 05/11 severity, dull. She is passing flatus normally but having reduced appetite to solids, though hydrating well. Has also been having subjective fevers/chills over past day. Pt arrived to ER hemodynamically stable. Initial evaluation significant for WBC 13.8, no other lab abnormality. CTAP demonstrating moderate fecal retention and possible mild sigmoid stercoral colitis. ER interventions include Zofran 4 mg IV x2, morphine 4 mg IV, 500 NSS bolus, Dilaudid 0.5 mg IV x2, Toradol 15 mg IV x1. At present, pt reports no new complaints. Results & Data Results & Data Vital Signs (Past 12 Hours) Vital Signs Temp Pulse Pulse Resp BP BP Pulse Ox 07/04/23 00:50 36.3 C L 55 L 16 133/75 94 07/04/23 00:18 07/03/23 22:31 151/72 H 07/03/23 22:31 62 17 97 07/03/23 21:32 155/78 H 07/03/23 21:32 66 19 94 07/03/23 19:59 59 L O2 Del Method 07/04/23 00:50 Room Air 07/04/23 00:18 Room Air 07/03/23 22:31 07/03/23 22:31 07/03/23 21:32 07/03/23 21:32 07/03/23 19:59
[2023-07-04 07:39] LABS: Hematocrit (blood only) 34.5 % (37.0-47.0); Hemoglobin 11.8 g/dl (12.0-16.0); Mean Corpuscular Hemoglobin 29.1 pg (25.0-34.0); Mean Corpuscular Hgb Conc 34.2 g/dL (32.0-36.0); Mean Corpuscular Volume 85.2 fL (80.0-100.0); Mean Platelet Volume 9.9 fL (9.4-12.4); Platelet Count 260 K/uL (130-400); RDW Coefficient of Variation 12.9 % (11.5-14.5); RDW Standard Deviation 40.1 fL (36.4-46.3); Red Blood Count 4.05 M/uL (4.20-5.40); White Blood Count 9.45 K/ul (4.8-10.8)
[2023-07-04 08:02] LABS: BUN Creatinine Ratio 22.4 (10-20); C Reactive Protein 5.57 mg/dl (0-0.5); Calcium 8.1 mg/dl (8.6-10.3); Creatinine Clr Calc Pharmacy 61.1 ml/min; Est GFR (African American) 87.1 ml/min; Est GFR (Non-African American) 75.1 ml/min; Potassium 4.1 mmol/L (3.5-5.1)
[2023-07-04] MEDS ORDERED: DOCUSATE SODIUM 100 MG CAP PO SCH (09:00)
[2023-07-04] MEDS ORDERED: POLYETHYLENE (MIRALAX) 17 GM PACK PO SCH (09:00)
[2023-07-04] MEDS ORDERED: hydroCHLOROthiazide 25 MG TAB PO SCH (09:00)
[2023-07-04] MEDS ORDERED: SENNA 8.6 MG TAB PO SCH (09:00)
[2023-07-04] MEDS ORDERED: lisinopril 10 MG TAB PO SCH (09:00)
[2023-07-04] MEDS ORDERED: ASPIRIN 325 MG ECTAB PO SCH (09:00)
[2023-07-04] MEDS ORDERED: ACETAMINOPHEN 500 MG TAB PO SCH (14:00)
--- NOTE | 2023-07-04 14:57 | Discharge Summary ---
Date of Service July 04, 2023 Admission HPI Per Admitting Provider Pt is 78 yo F with PMHx of HTN, cerebral aneurysm s/p repair w/ coiling in 2013, previous SBO w/ multiple abdominal surgeries presenting with abdominal pain and w/ recent admission 06/29 for hypertensive urgency, 06/26 for vertigo. Pt reports ongoing mild abdominal pain for weeks which has started to acutely worsen over past few days. Notes last normal BM was on 06/26, did have BM on 06/30 though with minimal, fragmented, hard stool. Did have a similar BM today and noticed slight BRBPR in toilet bowl afterward. Pt reports frequent tenesmus since day prior with worsening abdominal pain- wrapping around LLQ/center/RLQ, 05/11 severity, dull. She is passing flatus normally but having reduced appetite to solids, though hydrating well. Has also been having subjective fevers/chills over past day. Pt arrived to ER hemodynamically stable. Initial evaluation significant for WBC 13.8, no other lab abnormality. CT-AP demonstrated moderate fecal retention and possible mild sigmoid stercoral colitis. ER interventions include Zofran 4 mg IV x2, 500 NSS bolus, and pain meds: morphine, 4mg, IV, Dilaudid 0.5 mg IV x2, Toradol 15 mg IV x1 and bowel regimen meds. This morning pt reports no new complaints, has been feeling better (less AP, bloating) and has had several BMs since being admitted as an inpatient last night and started on bowel regimen meds, including docusate, Miralax, and senakot. Patient is amenable to discharge today on the appropriate medications. Admission Exam Per Admitting Provider Physical Exam: General: uncomfortable-appearing, no acute distress HEENT: PERRL, EOMI, conjunctivae clear without injection, anicteric sclerae, moist mucous membranes, clear oropharynx without exudate or erythema Neck: supple, trachea midline, no thyromegaly, no JVD, no cervical lymphadenopathy CV: RRR, normal S1 and S2, no murmurs Resp: CTAB, no increased work of breathing, no crackles or wheezes Abd: Soft, diffusely tender from LLQ to RLQ in band-like pattern, distended, no guarding or rebound, no hepatosplenomegaly, not tympanitic to percussion, normal bowel sounds MSK: Normal bulk of all four extremities Neuro: AOx3, no focal motor or sensory deficits Skin: no rashes or lesions, warm and dry Ext: no LE peripheral edema or erythema, capillary refill <2s in all four extremities, 2+ LE peripheral pulses b/l Principal Diagnosis Constipation Discharge Exam Constitutional WD/WN, vitals as above Respiratory normal respiratory effort, lungs clear to auscultation Cardiovascular RRR, no murmur, no edema Gastrointestinal (Abdomen) Inspection/Auscultation: abdomen normal to inspection and normal bowel sounds Percussion/Palpation: + abdomen tender (2/10 at rest, 4/10 upon palpation) Psychiatric A+Ox3, euthymic affect Genitourinary bladder normal to inspection Discharge Data Allergies Allergy/AdvReac Type Severity Reaction Status Date / Time No Known Allergies Allergy Verified 07/03/23 20:11 Consultations 07/04/23 00:11 ED Decision to Admit Stat Ordered Studies 07/03/23 18:29 CT abd pelvis IV con only Stat Hospital Course (1) Constipation: (2) Stercoral colitis: (3) Hematochezia: (4) S/P cerebral aneurysm operation: (5) Hypertension: Plan (1) Constipation -Likely source of her abdominal pain -CT-AP currently does not suggest acute bowel obstruction -Maintenance IVF ordered -Clear liquid diet in hospital -Aggressive bowel regimen ordered: Miralax TID/ Senna daily/ Colace BID -Magnesium citrate x1 ordered on admission -Dulcolax x1 ordered on admission -Pt would like to avoid manual disimpaction for now but is amenable if above fails -Pain control- scheduled Tylenol, Toradol PRN. (2) Stercoral colitis -CTAP suggesting mild sigmoid stercoral colitis -Pt does report subjective fever/chills and has mild leukocytosis 13.8, CRP 5.57, procalcitonin (PCT), 0.05 -unlikely 2/2 bacterial infxn, antibiotics not given -Bowel regimen as above (3) Hematochezia -Reported incident of very mild BRBPR on 07/03 likely from straining -Stable Hgb at present, Hgb -Continue to monitor, patient encouraged to inspect BMs as outpt for blood (4) S/P cerebral aneurysm operation -Continue aspirin 325 mg daily (5) Hypertension -BP stable -Continue HCTZ/lisinopril, F/U w/ PCP Plan FENGI: Clear liquids Code status: Full DVT prophylaxis: SCDs. Deferring chemoprophylaxis for now given report of earlier BRBPR and pt already being on aspirin 325 mg daily Isolation: None Unit: Medical/surgical Disposition planning: Likely home Total Time Total Time Spent Total Time Spent (In Minutes): see attending attestation Discharge Plan Discharge Items Patient Disposition: Home - Self-Care Reason For Visit: ABDOMINAL PAIN, CONSTIPATION Discharge Diagnosis: Constipation Activity: Resume your previous activity Activity Comment: Maintain daily physical activity to help prevent constipation Non-emergency contact: Primary Care Provider Call non-emergency contact if: you have any medication questions and you have a fever Follow-up/Referrals: Wong Navarrete, [Primary Care Provider] - Diet: Regular Addtl Attending Provider Instructions: You were admitted to the hospital for persistent constipation. You were treated with docusate sodium, sennosides, Miralax, ondansetron A discharge summary will be sent to your primary care physician to ensure continuity of care. Please bring this discharge summary with you to your next office appointment so that your provider can review it at that time. Follow-up appointments: We have requested a follow-up appointment with your primary care physician within one week of discharge. Please call their office if you do not hear from them. Keep all your follow-up appointments as already scheduled. If you cannot make an appointment, notify your provider. Medications: Your medication list has been reviewed and reconciled upon discharge to ensure accuracy and continuity of care. An updated list of all your medications is included with your hospital discharge paperwork. Please review this list closely, and make note of any changes. We sent a new medication called docusate sodium to your pharmacy. Take docusate sodium, 100 mg, by mouth, twice a day for at least a week. We sent a new medication called Miralax to your pharmacy. Take Miralax 17 g, by mouth, twice a day, for 3 days, then take on an as-needed basis. We sent a new medication called Senokot to your pharmacy. Take Senokot 8.6 mg, by mouth, daily, for 3 days, then take on an as-needed basis. Take your medications as instructed; do not skip a dose of your medicines. Make sure all of your doctors know every medicine you are taking (including kvra-mjl-pzssper medicines, vitamins, and supplements). Call your primary care provider before taking any new medicines (including hrlv-xyv-sxcrawc medicines, vitamins, and supplements), because some of these may interact with your current medications, or may make your symptoms worse. Tell your primary care provider if you cannot afford your medications. CONTACT YOUR PRIMARY CARE PROVIDER if you experience any of the following: fevers, chills persistent abdominal pain, inability to have a bowel movement Difficulty following your treatment plan, or difficulty taking medications CALL 911 OR GO TO THE EMERGENCY DEPARTMENT if you experience any of the fo llowing: Sudden, severe abdominal pain or nausea/vomiting Severe chest pain, or chest pain that radiates (moves) to your jaw or arm Sudden, severe shortness of breath or difficulty breathing Thank you for allowing us to participate in your care Pending Studies at Discharge: No Stand-Alone Forms: My [facility] Refurrl, Smoking Cessation Medications and DC Order Prescriptions: New docusate sodium 50 mg capsule 50 mg PO BID Qty: 30 0RF polyethylene glycol 3350 [Miralax] 17 gram/dose powder 17 g PO BID Qty: 238 0RF sennosides [Senna Laxative] 8.6 mg tablet 8.6 mg PO BID Qty: 10 0RF Continued alendronate 70 mg tablet 70 mg PO WK Rx Instructions: SUNDAYS hydrochlorothiazide 25 mg tablet 25 mg PO QAM Calcium 600 + D(3) 600 mg calcium- 200 unit Capsule 1 cap PO BID ibuprofen [Advil] 200 mg Tablet 400 mg PO Q6H PRN (Reason: fever/pain) lisinopril 10 mg tablet 10 mg PO DAILY trazodone 50 mg tablet 25 mg PO DAILY PRN (Reason: Insomnia) Rx Instructions: PER PT "HAVE NOT TRIED THIS MED YET". aspirin 325 mg Tablet,Delayed Release (Dr/Ec) 325 mg PO DAILY Discharge Orders: Discharge Order (Routine); Ordered 07/04/23 Ordered By: Austin Arellano Admission Data Admit Date/Time: 07/03/23 22:54 Attending Provider: Austin Millan Admit Provider: Amanda Childs Primary Care Provider: Wong Navarrete Other Providers: Kenna Da Silva Other Interventions: Discharge Summary Assessment (RN) Last Done: 07/04/23 12:55 Supervising Physician Co-Signing Physician Notes Attending attestation Pt seen and examined in concert with Dr. Arellano. In agreement with the documented findings as noted in the resident documentation with any exceptions or additions as noted here. Resolution of presenting complaint of abdominal pain, some persistent fullness s/p multiple bowel movements. On examination, S1/S2 nl RRR no MCG. CTAB. Abd NT/ND BS+ve VS: 113/57, 50, 16, 36.5C, 95 RA Data: Hgb 11.8, WBC 9.45, Cr 0.76, Procal 0.05 Abdominal pain in the setting of constipation - resolved following bowel regimen. Counseling provided re: miralax, colace and ongoing use following discharge with close follow up with PCP. Encourage PO hydration HTN - well controlled on chronic home medications Else see resident documentation as noted. Total attending physician time spent with this patient's care on the day of discharge: 35 minutes.
== END 2023-07-04 14:21 | disposition home or self-care (01) ==
LOC: ED 18:07 → SUATTDRO 22:54 → INTOOBSV 22:54 → 3N 22:54